=== PATIENT | male | born 1975 | race Two or more races ===

== ENCOUNTER 2021-11-04 18:00 | Inpatient (IN) | payer OTHER, SELFPAY ==
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
[2021-11-04 20:25] LABS: Glucose, Whole Blood 314 mg/dL (60-115)
[2021-11-04] MEDS: Insulin Lispro 100 UNIT/ML 3 ML VIAL SUBCUT (20:37)
[2021-11-04 20:40] VITALS: BP 123/85; PULSE 75; RESP 18; TEMP 36.3; O2SAT 96
[2021-11-04] MEDS: cloNIDine HCL 0.1 MG TABLET PO (21:51)
[2021-11-04] MEDS: Gabapentin 100 MG CAPSULE 200 MG PO (21:51)
[2021-11-04] MEDS: Gabapentin 300 MG CAPSULE PO (21:51)
[2021-11-04] MEDS: hydrOXYzine HCL 25 MG TABLET PO (21:52)
[2021-11-05 08:00] VITALS: BP 146/86; PULSE 86; RESP 20; TEMP 36.6; O2SAT 98
[2021-11-05] MEDS: OLANZapine 5 MG TABLET PO ×2 (08:24→15:15)
[2021-11-05] MEDS: metFORMIN HCl 500 MG TABLET PO (08:24)
[2021-11-05] MEDS: methADONE HCl 20 MG/2 ML ORAL.CONC PO ×2 (08:24→11:36)
[2021-11-05] MEDS: cloNIDine HCL 0.1 MG TABLET PO (08:24)
[2021-11-05] MEDS: Acetaminophen 325 MG TABLET 650 MG PO (08:25)
[2021-11-05] MEDS: Gabapentin 300 MG CAPSULE PO ×2 (08:25→21:13)
[2021-11-05] MEDS: Magnesium Hydrox/Alum Hydrox 30 ML ORAL.SUSP PO (08:25)
[2021-11-05 08:29] LABS: Hemoglobin A1c % > 14.0 %
[2021-11-05 08:35] LABS: Estimated Glomerular Filt Rate > 60
[2021-11-05 08:38] LABS: Cholesterol 140 mg/dL; HDL Cholesterol 39 mg/dL; LDL Cholesterol Calculated 69 mg/dl; Magnesium 2.1 mg/dL (1.6-2.6); Triglycerides 160 mg/dL
[2021-11-05 08:59] LABS: Free T4 (Free Thyroxine) 1.13 ng/dL (0.71-1.85); Thyroid Stimulating Hormone 1.02 uIU/mL (0.32-4.0)
[2021-11-05 08:59] LABS: Glucose, Whole Blood 359 mg/dL (60-115)
[2021-11-05] MEDS: Insulin Lispro 100 UNIT/ML 3 ML VIAL SUBCUT ×4 (09:00→21:16)
--- NOTE | 2021-11-05 10:45 | HO.ADDICT_ITS ---
History of Present Illness Date of Service: 11/05/2021 Chief Complaint: PTSD, Alcohol use d/o, PDD recurrent episode Reason for Consult: methadone titration Requesting physician: Erendira Frausto Sources of Information: patient interviewed and chart reviewed Additional Sources of Information: KEELY HPI Narrative: Patient is a 46 year old male with OUD currently psychiatrically admitted with SI. Patient transferred from [facility] ED where he had been started on methadone 20mg daily, Patient seen in group room on M3. Awake, alert, engaged in interview. Observed yawning, shivering. Reporting anxiety, body aches, chills. States he has been recieving 20mg methadone daily since in the ED at [facility] Current use reported to be at least one bundle daily. Has been using for over ten years on and off, but recently started using IV History of suboxone treatment, which he states was not effective for him for various reasons Denies any history of methadone treatment Reports longest period in recovery 6 years Numerous ATS admissions Denies any history of OD Recieved methadone 20mg this morning (prior to interview) and still experiencing withdrawal sx Review of Systems Constitutional: Reports as per HPI Diagnostics Vital Signs (24Hr): Vital Signs - 24 hr 11/04/21 20:40 Temperature 97.4 F Pulse Rate 75 Respiratory Rate 18 Blood Pressure 123/85 Pulse Oximetry 96 Labs Results: 11/05/21 07:58 Labs: Laboratory Results - last 48 hr 11/04/21 11/05/21 11/05/21 20:22 07:58 07:58 Creatinine Estim Creat Clear Calc Estimated GFR POC Glucose 314 H Estimat Average Glucose TNP Hemoglobin A1c % > 14.0 Magnesium 2.1 Triglycerides 160 Cholesterol 140 LDL Cholesterol, Calc 69 HDL Cholesterol 39 TSH 1.02 Free T4 1.13 11/05/21 11/05/21 07:58 08:55 Creatinine 1.01 Estim Creat Clear Calc TNP Estimated GFR > 60 POC Glucose 359 H* Estimat Average Glucose Hemoglobin A1c % Magnesium Triglycerides Cholesterol LDL Cholesterol, Calc HDL Cholesterol TSH Free T4 Mental Status Exam Mental Status Exam Patient Appearance: Appropriate (wrapped in blanket ) Patient Orientation: Person, Place, Time and Situation Level of Consciousness: Awake, Appropriate and Alert Mood Description: Anxious and Sad Affect Description: Anxious Speech Pattern: Clear Medications Medications Current Medications Acetaminophen (Acetaminophen 325 Mg Tablet) 650 mg PO Q6H PRN PRN Reason: Headache/Pain Mild Scale (1-3) Last Admin: 11/05/21 08:25 Dose: 650 mg Documented by: Al Hydroxide/Mg Hydroxide (Magnesium Hydrox/Alum Hydrox 30 Ml Oral.Susp) 30 ml PO Q6H PRN PRN Reason: Heartburn/Nausea Last Admin: 11/05/21 08:25 Dose: 30 ml Documented by: Clonidine HCl (Clonidine Hcl 0.1 Mg Tablet) 0.1 mg PO TID PRN; Protocol PRN Reason: hyperarousal Last Admin: 11/05/21 08:24 Dose: 0.1 mg Documented by: Gabapentin (Gabapentin 300 Mg Capsule) 300 mg PO BID [facility] Last Admin: 11/05/21 08:25 Dose: 300 mg Documented by: Hydroxyzine HCl (Hydroxyzine Hcl 25 Mg Tablet) 25 mg PO Q6H PRN PRN Reason: Anxiety Last Admin: 11/04/21 21:52 Dose: 25 mg Documented by: Insulin Human Lispro (Insulin Lispro 100 Unit/Ml 3 Ml Vial) 0 unit SUBCUT QIDACHS [facility]; Protocol Last Admin: 11/05/21 09:00 Dose: 10 unit Documented by: Loperamide HCl (Loperamide Hcl 2 Mg Capsule) 2 mg PO Q6H PRN PRN Reason: Diarrhea Magnesium Hydroxide (Milk Of Magnesia 30 Ml Oral.Susp) 30 ml PO DAILY PRN PRN Reason: Constipation Metformin HCl (Metformin Hcl 500 Mg Tablet) 500 mg PO BIDWM [facility] Last Admin: 11/05/21 08:24 Dose: 500 mg Documented by: Olanzapine (Olanzapine 5 Mg Tablet) 5 mg PO TID PRN PRN Reason: agitation, anxiety Last Admin: 11/05/21 08:24 Dose: 5 mg Documented by: Trazodone HCl (Trazodone Hcl 50 Mg Tablet) 50 mg PO BEDTIME PRN PRN Reason: Insomnia Allergies Allergies Allergy/AdvReac Type Severity Reaction Status Date / Time No Known Allergies Allergy Verified 10/04/21 12:40 Assessment & Plan Assessment & Plan (1) Opioid withdrawal: Status: Acute Code(s): F11.23 - Opioid dependence with withdrawal Assessment and Plan: * additional 20mg methadone ordered for total of 40mg today * tomorrow 40mg in AM and assess for need to need to further titrate * avoid benzodiazepines if possible * monitor for oversedation * Recovery Support will collaborate with to ensure admission to OTP prior to DC * If not already ordered HIV, Hepatitis screen (2) Opioid use disorder, severe, dependence: Status: Acute Code(s): F11.20 - Opioid dependence, uncomplicated I spent __45____ minutes with the patient and/or on the patient floor today, greater than?50% of which was spent counseling/coordinating care. [facility] Family History Family History (Updated 10/04/21 @ 12:38 by Isabelle Merino) Mother Diabetes Father HTN (hypertension) Social History Social History (Updated 10/04/21 @ 12:40 by Isabelle Merino) Household Members: None Housing: Apartment Do you presently have visiting nurse or other home services: No Alcohol intake: never Patient Tobacco Use Status: Former Tobacco user Tobacco use type: Cigarette e-Cigarette/Vaping Use: Never Used Patient Interested in Nicotine Replacement: No Use of substances other than those prescribed or required for medical reasons: Yes Substance Use Type: Crack/Cocaine and Heroin Substance Use Frequency: Daily Last Used Substance: Just Prior to Admission Currently Displaying Signs/Symptoms of Drug Intoxication Withdrawal: No Any prior treatment program specific to substance use: Yes ([facility]) Have you been hit, kicked, punched, or otherwise hurt by someone within the past year? If so, by whom?: No Do you feel safe in your current relationship?: No Is there a partner from a previous relationship who is making you feel unsafe now?: No Are you made to feel afraid or neglected: No Advance Directives: No Advance Directives Information Provided: No Do you have thoughts of harming others: None Do you have a plan to hurt others: No Plan Recently lost weight without trying: Yes How much weight loss: Unsure Eating poorly because of decreased appetite: Yes Nutrition screen score: 5 Poor oral hygiene: No
[2021-11-05 12:33] LABS: Glucose, Whole Blood 321 mg/dL (60-115)
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
[2021-11-05] MEDS: hydrOXYzine HCL 25 MG TABLET PO (15:15)
--- NOTE | 2021-11-05 16:25 | P.CNHOSGPS_ITS ---
History of Present Illness Data of Consult Service Date: 11/05/21 Requesting physician: [facility] Psychiatry Primary Care Provider: [facility] HPI Reason for consult: transfer from [facility] 46yo M with uncontrolled DM2 on MTF alone, not on insulin; HTN; bipolar disorder; opioid use disorder; cocaine abuse. Admitted to inpatient psychiatry from [facility] with SI + polysubstance abuse. Started on methadone. A1c is >14 and BGs here are in the 300s. Pt c/o bilateral leg neuropathic pain. Not vaccinated against Covid-19 and had Covid-19 once not requiring hospitalization. No fever, chills, cough, dyspnea, chest pain, nausea, vomiting, or abdominal pain. Review of Systems Review of Systems: Yes all other systems are reviewed and are negative [facility] Medical History Essential hypertension Type 2 diabetes, uncontrolled, with neuropathy Family History Mother Diabetes Father HTN (hypertension) Surgical History History of tooth extraction Social History Household Members: None Housing: Apartment Do you presently have visiting nurse or other home services: No Alcohol intake: never Patient Tobacco Use Status: Former Tobacco user Tobacco use type: Cigarette e-Cigarette/Vaping Use: Never Used Patient Interested in Nicotine Replacement: No Use of substances other than those prescribed or required for medical reasons: Yes Substance Use Type: Crack/Cocaine and Heroin Substance Use Frequency: Daily Last Used Substance: Just Prior to Admission Currently Displaying Signs/Symptoms of Drug Intoxication Withdrawal: No Any prior treatment program specific to substance use: Yes ([facility]) Have you been hit, kicked, punched, or otherwise hurt by someone within the past year? If so, by whom?: No Do you feel safe in your current relationship?: No Is there a partner from a previous relationship who is making you feel unsafe now?: No Are you made to feel afraid or neglected: No Advance Directives: No Advance Directives Information Provided: No Do you have thoughts of harming others: None Do you have a plan to hurt others: No Plan Recently lost weight without trying: Yes How much weight loss: Unsure Eating poorly because of decreased appetite: Yes Nutrition screen score: 5 Poor oral hygiene: No Meds Allergies Allergy/AdvReac Type Severity Reaction Status Date / Time No Known Allergies Allergy Verified 10/04/21 12:40 Active Medications: Current Medications Acetaminophen (Acetaminophen 325 Mg Tablet) 650 mg PO Q6H PRN PRN Reason: Headache/Pain Mild Scale (1-3) Last Admin: 11/05/21 08:25 Dose: 650 mg Documented by: Al Hydroxide/Mg Hydroxide (Magnesium Hydrox/Alum Hydrox 30 Ml Oral.Susp) 30 ml PO Q6H PRN PRN Reason: Heartburn/Nausea Last Admin: 11/05/21 08:25 Dose: 30 ml Documented by: Clonidine HCl (Clonidine Hcl 0.1 Mg Tablet) 0.1 mg PO TID PRN; Protocol PRN Reason: hyperarousal Last Admin: 11/05/21 08:24 Dose: 0.1 mg Documented by: Gabapentin (Gabapentin 300 Mg Capsule) 300 mg PO BID [facility] Last Admin: 11/05/21 08:25 Dose: 300 mg Documented by: Hydroxyzine HCl (Hydroxyzine Hcl 25 Mg Tablet) 25 mg PO Q6H PRN PRN Reason: Anxiety Last Admin: 11/05/21 15:15 Dose: 25 mg Documented by: Insulin Glargine (Insulin Glargine,Hum.Rec.Anlog 100 Unit/Ml 10 Ml Vial) 20 unit SUBCUT BEDTIME [facility] Insulin Human Lispro (Insulin Lispro 100 Unit/Ml 3 Ml Vial) 0 unit SUBCUT [facility]; Protocol Last Admin: 11/05/21 13:05 Dose: 8 unit Documented by: Loperamide HCl (Loperamide Hcl 2 Mg Capsule) 2 mg PO Q6H PRN PRN Reason: Diarrhea Magnesium Hydroxide (Milk Of Magnesia 30 Ml Oral.Susp) 30 ml PO DAILY PRN PRN Reason: Constipation Metformin HCl (Metformin Hcl 1,000 Mg Tablet) 1,000 mg PO BIDWM [facility] Methadone HCl (Methadone Hcl 20 Mg/2 Ml Oral.Conc) 40 mg PO DAILY [facility] Olanzapine (Olanzapine 5 Mg Tablet) 5 mg PO TID PRN PRN Reason: agitation, anxiety Last Admin: 11/05/21 15:15 Dose: 5 mg Documented by: Olanzapine (Olanzapine 10 Mg Tablet) 10 mg PO BEDTIME [facility] Trazodone HCl (Trazodone Hcl 50 Mg Tablet) 50 mg PO BEDTIME PRN PRN Reason: Insomnia Home Medications Medication Instructions Recorded Confirmed Last Taken Type gabapentin 300 mg capsule 1 cap PO BID 11/05/21 Unknown History lisinopril 10 mg tablet 1 tab PO DAILY 11/05/21 Unknown History metformin 500 mg tablet,extended 1 tab PO BID 11/05/21 Unknown History release 24 hr paroxetine HCl 10 mg tablet 3 tab PO QAM 11/05/21 Unknown History Results Labs CBC and Chem 7: 11/05/21 07:58 Labs: Laboratory Results - last 24 hr 11/04/21 11/05/21 11/05/21 20:22 07:58 07:58 Estim Creat Clear Calc Estimated GFR POC Glucose 314 H Estimat Average Glucose TNP Hemoglobin A1c % > 14.0 Magnesium 2.1 Triglycerides 160 Cholesterol 140 LDL Cholesterol, Calc 69 HDL Cholesterol 39 TSH 1.02 Free T4 1.13 11/05/21 11/05/21 11/05/21 07:58 08:55 12:25 Estim Creat Clear Calc TNP Estimated GFR > 60 POC Glucose 359 H* 321 H Estimat Average Glucose Hemoglobin A1c % Magnesium Triglycerides Cholesterol LDL Cholesterol, Calc HDL Cholesterol TSH Free T4 Assessment and Plan (1) Type 2 diabetes, uncontrolled, with neuropathy: Status: Acute (2) Essential hypertension: Status: Acute Plan 46yo M with uncontrolled DM2 on MTF alone, not on insulin; HTN; bipolar disorder; opioid use disorder; cocaine abuse who has been admitted to inpatient psychiatry from [facility] with SI + polysubstance abuse. # uncontrolled DM2 - increase MTF from 500 to 1000 mg bid. start Lantus 20 units qhs; may increase by 10-20% daily to achieve fasting [AM] glucose of 80-140. Continue correction- dose lispro. Suspect highly insulin resistant and should be discharged on least Lantus and needs close PCP f/u. # HTN - pt states on med but not known. will order med reconciliation. currently BP 123/85. if BP >130/80, would start lisinopril 10 mg daily and recheck BMP in 1 week. # opioid use disorder - started on methadone, prn clonidine # bipolar disorder - started on olanzapine + gabapentin, prn hydroxyzine # cocaine abuse - counseling Thank you for this consultation. We are signing off the case at this time. Please communicate with us if any new medical questions arise. Physical Exam Vital Signs: Last Vital Signs Temp 97.4 F 11/04/21 20:40 Pulse 75 11/04/21 20:40 Resp 18 11/04/21 20:40 BP 123/85 11/04/21 20:40 Pulse Ox 96 11/04/21 20:40 Gen: in no acute distress HEENT: sclera anicteric, moist mucus membranes Neck: supple Lungs: clear to auscultation bilaterally Heart: regular rate and rhythm, no murmurs, obese Abd: soft, non-tender, non-distended, obese Ext: no edema Skin: warm/well-perfused Neuro: alert and oriented x3, decreased sensation to light touch bilateral feet Psych: restricted affect Neuro Cranial nerves: Yes CN's II-XII intact bilaterally
[2021-11-05 17:25] LABS: Glucose, Whole Blood 269 mg/dL (60-115)
[2021-11-05 20:50] VITALS: BP 115/60; PULSE 18; RESP 18; TEMP 36.6; O2SAT 95
[2021-11-05] MEDS: OLANZapine 10 MG TABLET PO (21:13)
[2021-11-05] MEDS: LORazepam 1 MG TABLET 2 MG PO (21:13)
[2021-11-05] MEDS: Insulin Glargine,Hum.rec.anlog 100 UNIT/ML 10 ML VIAL 20 UNIT SUBCUT (21:16)
[2021-11-06 00:31] LABS: Glucose, Whole Blood 357 mg/dL (60-115)
[2021-11-06 03:35] VITALS: BP 116/70; PULSE 63
[2021-11-06] MEDS: cloNIDine HCL 0.1 MG TABLET PO ×2 (03:36→13:22)
[2021-11-06] MEDS: hydrOXYzine HCL 25 MG TABLET PO ×2 (03:36→20:50)
[2021-11-06] MEDS: OLANZapine 5 MG TABLET PO (03:44)
[2021-11-06] MEDS: methADONE HCl 20 MG/2 ML ORAL.CONC 40 MG PO (08:16)
[2021-11-06] MEDS: Gabapentin 300 MG CAPSULE PO ×2 (08:18→20:50)
[2021-11-06] MEDS: lisinopriL 10 MG TABLET PO (08:18)
[2021-11-06 09:54] LABS: Glucose, Whole Blood 579 mg/dL (60-115)
[2021-11-06] MEDS: Insulin Lispro 100 UNIT/ML 3 ML VIAL SUBCUT ×2 (09:54→12:54)
--- NOTE | 2021-11-06 12:11 | P.PNPSI_ITS ---
Subjective Subjective Date of Service: 11/06/21 Reason For Visit: PTSD, Alcohol use d/o, PDD recurrent episode Subjective Notes: Conditional Voluntary Interim History: The nursing staff reported the patient was placed on cows and CIWA protocol over the night since his blood pressure and pulse was very high. Today he reported he is doing much better. On interview, the patient stated that he slept a little better, according to the nursing staff he slept 5 hours and he feels a little better but still he complains of anxiety. He stated that in the past he used to be on Ativan and Valium at the same time and I explained him that both medications are benzodiaze pines there highly addictive. He stated that olanzapine that was started yesterday help him a little he agreed to increased a little more so he can sleep a few hours more. Risk benefits and side effects were thoroughly discussed and he agreed increase Zyprexa up to 50 mg p.o. q.h.s. to target mood lability Mental Status Exam Mental Status Exam Patient Appearance: Appropriate Patient Orientation: Person Level of Consciousness: Awake Patient Behavior: Cooperative Mood Description: Withdrawn Affect Description: Constricted Patient Cognition Impaired: No Ability to Follow Directions: Good Speech Pattern: Clear Hallucinations: None Delusions: Not Present Thought Process: Distracted Thought Content: positive for Circumstantial Judgement: Fair Diagnostics Vital Signs (24Hr): Vital Signs - 24 hr 11/05/21 20:50 11/06/21 03:35 Temperature 97.9 F Pulse Rate 18 L 63 Respiratory Rate 18 Blood Pressure 115/60 116/70 Pulse Oximetry 95 Labs Results: 11/05/21 07:58 Labs: Laboratory Results - last 48 hr 11/04/21 11/05/21 11/05/21 20:22 07:58 07:58 Creatinine Estim Creat Clear Calc Estimated GFR POC Glucose 314 H Estimat Average Glucose TNP Hemoglobin A1c % > 14.0 Magnesium 2.1 Triglycerides 160 Cholesterol 140 LDL Cholesterol, Calc 69 HDL Cholesterol 39 TSH 1.02 Free T4 1.13 11/05/21 11/05/21 11/05/21 07:58 08:55 12:25 Creatinine 1.01 Estim Creat Clear Calc TNP Estimated GFR > 60 POC Glucose 359 H* 321 H Estimat Average Glucose Hemoglobin A1c % Magnesium Triglycerides Cholesterol LDL Cholesterol, Calc HDL Cholesterol TSH Free T4 11/05/21 11/05/2111/06/22 17:20 20:39 09:45 Creatinine Estim Creat Clear Calc Estimated GFR POC Glucose 269 H 357 H* 579 H* Estimat Average Glucose Hemoglobin A1c % Magnesium Triglycerides Cholesterol LDL Cholesterol, Calc HDL Cholesterol TSH Free T4 Medications Medications Current Medications Acetaminophen (Acetaminophen 325 Mg Tablet) 650 mg PO Q6H PRN PRN Reason: Headache/Pain Mild Scale (1-3) Last Admin: 11/05/21 08:25 Dose: 650 mg Documented by: Al Hydroxide/Mg Hydroxide (Magnesium Hydrox/Alum Hydrox 30 Ml Oral.Susp) 30 ml PO Q6H PRN PRN Reason: Heartburn/Nausea Last Admin: 11/05/21 08:25 Dose: 30 ml Documented by: Clonidine HCl (Clonidine Hcl 0.1 Mg Tablet) 0.1 mg PO TID PRN; Protocol PRN Reason: hyperarousal Last Admin: 11/06/21 03:36 Dose: 0.1 mg Documented by: Gabapentin (Gabapentin 300 Mg Capsule) 300 mg PO BID [facility] Last Admin: 11/06/21 08:18 Dose: 300 mg Documented by: Hydroxyzine HCl (Hydroxyzine Hcl 25 Mg Tablet) 25 mg PO Q6H PRN PRN Reason: Anxiety Last Admin: 11/06/21 03:36 Dose: 25 mg Documented by: Insulin Glargine (Insulin Glargine,Hum.Rec.Anlog 100 Unit/Ml 10 Ml Vial) 20 unit SUBCUT BEDTIME [facility] Last Admin: 11/05/21 21:16 Dose: 20 unit Documented by: Insulin Human Lispro (Insulin Lispro 100 Unit/Ml 3 Ml Vial) 0 unit SUBCUT QIDACHS [facility]; Protocol Last Admin: 11/06/21 09:54 Dose: 6 unit Documented by: Lisinopril (Lisinopril 10 Mg Tablet) 10 mg PO DAILY [facility]; Protocol Last Admin: 11/06/21 08:18 Dose: 10 mg Documented by: Loperamide HCl (Loperamide Hcl 2 Mg Capsule) 2 mg PO Q6H PRN PRN Reason: Diarrhea Lorazepam (Lorazepam 1 Mg Tablet) 1 mg PO Q2H PRN PRN Reason: CIWA score up to 10 Lorazepam (Lorazepam 1 Mg Tablet) 2 mg PO Q4H PRN PRN Reason: CIWA >10 Last Admin: 11/05/21 21:13 Dose: 2 mg Documented by: Magnesium Hydroxide (Milk Of Magnesia 30 Ml Oral.Susp) 30 ml PO DAILY PRN PRN Reason: Constipation Metformin HCl (Metformin Hcl 1,000 Mg Tablet) 1,000 mg PO BIDWM [facility] Last Admin: 11/06/21 10:01 Dose: Not Given Documented by: Methadone HCl (Methadone Hcl 20 Mg/2 Ml Oral.Conc) 40 mg PO DAILY [facility] Last Admin: 11/06/21 08:16 Dose: 40 mg Documented by: Olanzapine (Olanzapine 5 Mg Tablet) 5 mg PO TID PRN PRN Reason: agitation, anxiety Last Admin: 11/06/21 03:44 Dose: 5 mg Documented by: Olanzapine (Olanzapine 10 Mg Tablet) 10 mg PO BEDTIME [facility] Last Admin: 11/05/21 21:13 Dose: 10 mg Documented by: Trazodone HCl (Trazodone Hcl 50 Mg Tablet) 50 mg PO BEDTIME PRN PRN Reason: Insomnia Allergies Allergies Allergy/AdvReac Type Severity Reaction Status Date / Time No Known Allergies Allergy Verified 10/04/21 12:40 Assessment & Plan Assessment & Plan (1) Type 2 diabetes, uncontrolled, with neuropathy: Status: Acute Code(s): E11.40 - Type 2 diabetes mellitus with diabetic neuropathy, unspecified; E11.65 - Type 2 diabetes mellitus with hyperglycemia (2) Essential hypertension: Status: Acute Code(s): I10 - Essential (primary) hypertension Plan 46yo M with uncontrolled DM2 on MTF alone, not on insulin; HTN; bipolar disorder; opioid use disorder; cocaine abuse who has been admitted to inpatient psychiatry from [facility] with SI + polysubstance abuse. # uncontrolled DM2 - increase MTF from 500 to 1000 mg bid. start Lantus 20 units qhs; may increase by 10-20% daily to achieve fasting [AM] glucose of 80-140. Continue correction- dose lispro. Suspect highly insulin resistant and should be discharged on least Lantus and needs close PCP f/u. # HTN - pt states on med but not known. will order med reconciliation. currently BP 123/85. if BP >130/80, would start lisinopril 10 mg daily and recheck BMP in 1 week. # opioid use disorder - started on methadone, prn clonidine # bipolar disorder - started on olanzapine + gabapentin, prn hydroxyzine # cocaine abuse - counseling Plan 1. Increase Zyprexa up to 50 mg p.o. q.h.s.. 2. Continue cows and CIWA protocol. 3. Reassessment with resulting 24 hours. 4. Gather collateral information. I spent ___20___ minutes with the patient and/or on the patient floor today, greater than?50% of which was spent counseling/coordinating care. Reason for contiued inpatient stay Substantial Risk for: inability to function, rapid decompensation and med/psych decompensation
[2021-11-06 12:53] LABS: Glucose, Whole Blood 398 mg/dL (60-115)
[2021-11-06] MEDS: LORazepam 1 MG TABLET 2 MG PO ×2 (13:22→20:49)
[2021-11-06 17:45] LABS: Glucose, Whole Blood 456 mg/dL (60-115)
--- NOTE | 2021-11-06 17:50 | MHC.RECOVSUP ---
Recovery Support note: This health underwriter met with patient to discuss withdrawal management. Patient reports that the methadone has been very helpful however reports he still continues to experience withdrawal symptoms. Patient reports it feels like my bones are on fire. Patient also states I'm just used to it. Patient reports he was recently incarcerated for a long period of time and that he is trying to figure out who he is outside of an institution. Discussed recovery coaching with patient and he is agreeable to meeting with a head coach. This health underwriter introduced patient to head coach Perez who continued to discuss recovery and recover supports with patient. Discussed case with Isabelle Bonilla NP.
[2021-11-06] MEDS: Insulin Lispro 100 UNIT/ML 3 ML VIAL 24 UNIT SUBCUT (18:20)
[2021-11-06 18:36] LABS: VBG pH 7.34 (7.32-7.43)
[2021-11-06 18:37] LABS: VBG Base Excess 5.4 mmol/L; VBG HCO3 33 mmol/L (22-26); VBG pCO2 61 mmHg; VBG pO2 29 mmHg
[2021-11-06 18:46] LABS: Anion Gap 14 (12-20); Blood Urea Nitrogen 13 mg/dL (9-16); Calcium 10.2 mg/dL (8.4-10.2); Carbon Dioxide 29 mmol/L (22-29); Chloride 96 mmol/L (96-108); Estimated Glomerular Filt Rate 56; Glucose Random 504 mg/dL (60-115); Potassium 5.1 mmol/L (3.3-5.1); Sodium 134 mmol/L (135-145)
[2021-11-06 20:23] LABS: Glucose, Whole Blood 481 mg/dL (60-115)
[2021-11-06 20:26] VITALS: BP 137/69; PULSE 91; RESP 18; TEMP 36.6; O2SAT 98
[2021-11-06] MEDS: Acetaminophen 325 MG TABLET 650 MG PO (20:49)
[2021-11-06] MEDS: Insulin Glargine,Hum.rec.anlog 100 UNIT/ML 10 ML VIAL 30 UNIT SUBCUT (20:51)
[2021-11-06 22:05] LABS: Glucose, Whole Blood 565 mg/dL (60-115)
[2021-11-06] MEDS: Insulin Lispro 100 UNIT/ML 3 ML VIAL 10 UNIT SUBCUT (22:46)
[2021-11-06 23:10] LABS: Venous Blood Gas Refer to POC result
[2021-11-06 23:11] LABS: Acetone, serum QL Negative (Negative)
[2021-11-07 00:27] LABS: Glucose, Whole Blood 416 mg/dL (60-115)
[2021-11-07] MEDS: Insulin Lispro 100 UNIT/ML 3 ML VIAL SUBCUT ×5 (01:13→21:41)
[2021-11-07 03:36] LABS: Glucose, Whole Blood 439 mg/dL (60-115)
--- NOTE | 2021-11-07 05:45 | PM.EVENT ---
Event Note Date of Service: 11/07/21 Event Note: hyperglycemia: Patient did report that in the last hour he ate 2 sandwiches, 8 packets of saltine crackers, and 12 ounces of juice around 21:00. patient labs did not show evidence of dka. patient given lispro subcutaneously will continue to monitor fingerstick glucose patient was on regular diet -changed to carb controlled diet continue lantus 30 units and insulin sliding scale.
[2021-11-07 06:00] VITALS: BP 132/74; PULSE 66; RESP 18; TEMP 36.6; O2SAT 97
[2021-11-07 08:18] LABS: Folate 12.3 ng/mL (> or = 4.0); Vitamin B12 417 pg/mL (200-900)
[2021-11-07] MEDS: LORazepam 1 MG TABLET 2 MG PO (08:21)
[2021-11-07] MEDS: lisinopriL 10 MG TABLET PO (08:22)
[2021-11-07] MEDS: Gabapentin 300 MG CAPSULE PO ×2 (08:22→14:54)
[2021-11-07] MEDS: metFORMIN HCl 1,000 MG TABLET 1000 MG PO (08:23)
[2021-11-07 08:29] LABS: Glucose, Whole Blood 455 mg/dL (60-115)
[2021-11-07 08:33] VITALS: BP 180/80; PULSE 70; RESP 18; TEMP 36.6; O2SAT 96
[2021-11-07] MEDS: methADONE HCl 20 MG/2 ML ORAL.CONC 40 MG PO (08:53)
[2021-11-07 10:32] VITALS: BP 136/75; PULSE 92; RESP 17
--- NOTE | 2021-11-07 11:14 | MHC.RECOVRN ---
Met with pt to follow up regarding methadone titration. Upon approach, pt in milieu talking with peers. Brought to sensory room to have discussion. Pt reports feeling better as dose has been increased however, still has upset stomach, body aches, and is visibly restless. Pt advocating for self to increase dose but not too much. Pt states I've never been on methadone so I don't know how to feel but I don't want a really high dose. Discussed goals of treatment regarding [facility]. Pt unsure which [facility] he would like linkage to. T/w will provide list of options. 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 Discussed with Isabelle Bonilla APRN. Will continue to follow.
--- NOTE | 2021-11-07 12:29 | P.PNPSI_ITS ---
Subjective Subjective Date of Service: 11/07/21 Reason For Visit: PTSD, Alcohol use d/o, PDD recurrent episode Subjective Notes: Conditional Voluntary Interim History: Pt presents as dysphoric with episodes of crying to having slightly brighter affect. Pt reports he is upset after conversation with . He reports wants him to get treatment which he is equating to does not want to be with him. He reports he needs to be with someone in order to get better otherwise he does not think is worth it. Pt reports that tired of his ongoing use of substances and he wants to make changes. He denies plan or intent to hurt himself. He reports fair sleep- nightmares. He appeared somewhat sedated due to ativan he has been getting based on CIWA score but he does not appear in active withdrawal. He denies VH/AH. Interview somewhat limited due to his sedation. Medication Compliance: Yes Side effects from medications: No Review of Systems Review of Systems Yes all other systems are reviewed and are negative Constitutional: Reports as per HPI Diagnostics Vital Signs (24Hr): Vital Signs - 24 hr 11/06/21 20:26 11/07/21 06:00 11/07/21 08:33 Temperature 97.9 F 97.8 F 97.8 F Pulse Rate 91 66 70 Respiratory Rate 18 18 18 Blood Pressure 137/69 132/74 180/80 H Pulse Oximetry 98 97 96 11/07/21 10:32 Temperature Pulse Rate 92 Respiratory Rate 17 Blood Pressure 136/75 Pulse Oximetry Labs Results: 11/06/21 18:22 Labs: Laboratory Results - last 48 hr 11/05/21 11/05/21 11/05/21 07:58 17:20 20:39 VBG pH VBG pCO2 VBG pO2 VBG HCO3 VBG O2 Saturation VBG Base Excess Sodium Potassium Chloride Carbon Dioxide Anion Gap BUN Creatinine Estim Creat Clear Calc Estimated GFR POC Glucose 269 H 357 H* Random Glucose Calcium Vitamin B12 417 Folate 12.3 Acetone, Qual 11/06/21 11/06/21 11/06/21 09:45 12:49 17:40 VBG pH VBG pCO2 VBG pO2 VBG HCO3 VBG O2 Saturation VBG Base Excess Sodium Potassium Chloride Carbon Dioxide Anion Gap BUN Creatinine Estim Creat Clear Calc Estimated GFR POC Glucose 579 H* 398 H* 456 H* Random Glucose Calcium Vitamin B12 Folate Acetone, Qual 11/06/21 11/06/21 11/06/21 18:18 18:22 20:19 VBG pH 7.34 VBG pCO2 61 VBG pO2 29 VBG HCO3 33 H VBG O2 Saturation 39.0 VBG Base Excess 5.4 Sodium 134 L Potassium 5.1 Chloride 96 Carbon Dioxide 29 Anion Gap 14 BUN 13 Creatinine 1.37 Estim Creat Clear Calc TNP Estimated GFR 56 POC Glucose 481 H* Random Glucose 504 H* Calcium 10.2 Vitamin B12 Folate Acetone, Qual Negative 11/06/21 11/07/21 11/07/21 22:00 00:23 03:26 VBG pH VBG pCO2 VBG pO2 VBG HCO3 VBG O2 Saturation VBG Base Excess Sodium Potassium Chloride Carbon Dioxide Anion Gap BUN Creatinine Estim Creat Clear Calc Estimated GFR POC Glucose 565 H* 416 H* 439 H* Random Glucose Calcium Vitamin B12 Folate Acetone, Qual 11/07/21 11/07/21 08:26 13:02 VBG pH VBG pCO2 VBG pO2 VBG HCO3 VBG O2 Saturation VBG Base Excess Sodium Potassium Chloride Carbon Dioxide Anion Gap BUN Creatinine Estim Creat Clear Calc Estimated GFR POC Glucose 455 H* 149 H Random Glucose Calcium Vitamin B12 Folate Acetone, Qual Medications Medications Current Medications Acetaminophen (Acetaminophen 325 Mg Tablet) 650 mg PO Q6H PRN PRN Reason: Headache/Pain Mild Scale (1-3) Last Admin: 11/06/21 20:49 Dose: 650 mg Documented by: Al Hydroxide/Mg Hydroxide (Magnesium Hydrox/Alum Hydrox 30 Ml Oral.Susp) 30 ml PO Q6H PRN PRN Reason: Heartburn/Nausea Last Admin: 11/05/21 08:25 Dose: 30 ml Documented by: Clonidine HCl (Clonidine Hcl 0.1 Mg Tablet) 0.1 mg PO BID [facility]; Protocol Gabapentin (Gabapentin 300 Mg Capsule) 300 mg PO TID [facility] Hydroxyzine HCl (Hydroxyzine Hcl 25 Mg Tablet) 25 mg PO Q6H PRN PRN Reason: Anxiety Last Admin: 11/06/21 20:50 Dose: 25 mg Documented by: Insulin Glargine (Insulin Glargine,Hum.Rec.Anlog 100 Unit/Ml 10 Ml Vial) 45 unit SUBCUT BEDTIME [facility] Insulin Human Lispro (Insulin Lispro 100 Unit/Ml 3 Ml Vial) 0 unit SUBCUT QIDACHS [facility]; Protocol Last Admin: 11/07/21 13:12 Dose: 5 unit Documented by: Lisinopril (Lisinopril 10 Mg Tablet) 10 mg PO DAILY [facility]; Protocol Last Admin: 11/07/21 08:22 Dose: 10 mg Documented by: Loperamide HCl (Loperamide Hcl 2 Mg Capsule) 2 mg PO Q6H PRN PRN Reason: Diarrhea Magnesium Hydroxide (Milk Of Magnesia 30 Ml Oral.Susp) 30 ml PO DAILY PRN PRN Reason: Constipation Metformin HCl (Metformin Hcl 1,000 Mg Tablet) 1,000 mg PO BIDWM [facility] Last Admin: 11/07/21 08:23 Dose: 1,000 mg Documented by: Methadone HCl (Methadone Hcl 20 Mg/2 Ml Oral.Conc) 50 mg PO DAILY [facility] Olanzapine (Olanzapine 7.5 Mg Tablet) 15 mg PO BEDTIME [facility] Last Admin: 11/06/21 20:56 Dose: Not Given Documented by: Olanzapine (Olanzapine 5 Mg Tablet) 5 mg PO Q4H PRN PRN Reason: agitation, anxiety Trazodone HCl (Trazodone Hcl 50 Mg Tablet) 50 mg PO BEDTIME PRN PRN Reason: Insomnia Allergies Allergies Allergy/AdvReac Type Severity Reaction Status Date / Time No Known Allergies Allergy Verified 10/04/21 12:40 Assessment & Plan Assessment & Plan (1) Type 2 diabetes, uncontrolled, with neuropathy: Status: Acute Code(s): E11.40 - Type 2 diabetes mellitus with diabetic neuropathy, unspecified; E11.65 - Type 2 diabetes mellitus with hyperglycemia (2) Essential hypertension: Status: Acute Code(s): I10 - Essential (primary) hypertension (3) Mood disorder: Status: Acute Code(s): F39 - Unspecified mood [affective] disorder (4) Opioid use disorder, severe, dependence: Status: Acute Code(s): F11.20 - Opioid dependence, uncomplicated Plan 46yo M with uncontrolled DM2 on MTF alone, not on insulin; HTN; bipolar disorder; opioid use disorder; cocaine abuse who has been admitted to inpatient psychiatry from [facility] with SI + polysubstance abuse. # uncontrolled DM2 - increase MTF from 500 to 1000 mg bid. start Lantus 20 units qhs; may increase by 10-20% daily to achieve fasting [AM] glucose of 80-140. Continue correction-dose lispro. Suspect highly insulin resistant and should be discharged on least Lantus and needs close PCP f/u. # HTN - pt states on med but not known. will order med reconciliation. currently BP 123/85. if BP >130/80, would start lisinopril 10 mg daily and recheck BMP in 1 week. # opioid use disorder - started on methadone, prn clonidine # bipolar disorder - started on olanzapine + gabapentin, prn hydroxyzine # cocaine abuse - counseling Plan 1. Continue Olanzapine 2. increase gabapentin to 300mg po TID on 11/07 3. Gather collateral information. 4. aftercare planning. I spent minutes with the patient and/or on the patient floor today, greater than?50% of which was spent counseling/coordinating care. Reason for contiued inpatient stay Substantial Risk for: harm to self
[2021-11-07 13:06] LABS: Glucose, Whole Blood 149 mg/dL (60-115)
--- NOTE | 2021-11-07 14:33 | PM.EVENT ---
Event Note Date of Service: 11/07/21 Event Note: Hyperglycemia management BG 455->149 after 30 units lispro given this AM, 30 units glargine last night No evidence of DKA on lab work Will continue glargine 30 units nightly + correction dose lispro tidac 0/2/4/7/10/14/18 units goal AM BG 80-140, 80-200 with meals
--- NOTE | 2021-11-07 16:06 | MHC.CLN ---
NUTRITION A1C GREATER THAN 14 11/05/21. PATIENT DOES NOT FOLLOW THERAPEUTIC DIET AT HOME. DID NOT RECEIVE ALL OF THE FOOD ITEMS ORDERED AT BREAKFAST. EXPLAINED THAT IS ON DIABETIC DIET AND SOME FOODS COLD BE LIMITED.
[2021-11-07 16:37] VITALS: BMI 33.5
[2021-11-07 17:56] LABS: Glucose, Whole Blood 483 mg/dL (60-115)
--- NOTE | 2021-11-07 18:59 | PC.NURSE ---
Patient refused dinner time insulin and metformin due to being upset that his ativan was discontinued. machine scallop cutter, Aaliyah Singh, notified. Patients dinner time POC was 483. Patient was offered zyprexa and atarax, to which he declined. machine scallop cutter offered prn clonidine. Patient refused reporting only benzos will help. Any type of benzo . machine scallop cutter notified of patient statement and request. Patient educated on insulin, elevated levels of POC and metformin. Patient continued to decline sliding scale insulin and metformin despite teaching of its importance.
[2021-11-07 21:28] LABS: Glucose, Whole Blood 586 mg/dL (60-115)
[2021-11-07 21:40] VITALS: BP 116/65; PULSE 99; RESP 20; TEMP 36.8; O2SAT 94
[2021-11-07] MEDS: Insulin Glargine,Hum.rec.anlog 100 UNIT/ML 10 ML VIAL 30 UNIT SUBCUT (21:42)
[2021-11-07] MEDS: chlorproMAZINE HCl 100 MG TABLET PO (21:44)
[2021-11-07] MEDS: Gabapentin 300 MG CAPSULE 600 MG PO (21:44)
[2021-11-07] MEDS: cloNIDine HCL 0.1 MG TABLET PO (21:44)
[2021-11-07] MEDS: OLANZapine 7.5 MG TABLET 15 MG PO (21:45)
--- NOTE | 2021-11-08 08:02 | HO.PSYCHPN ---
Subjective Subjective Date of Service: 11/08/21 Reason For Visit: PTSD, Alcohol use d/o, PDD recurrent episode Subjective Notes: Conditional Voluntary Interim History: Pt reports feeling less depressed, anxious but less than before. he does report sleeping better last night with one time dose of thorazine 100mg po qhs. He is ambivalent about going to [facility] or not. He reports feeling anxious about relationship with who told him he needs help. Medication Compliance: Yes Side effects from medications: No Diagnostics Vital Signs (24Hr): Vital Signs - 24 hr 11/08/21 08:30 11/08/21 21:00 Temperature 97.5 F 98.3 F Pulse Rate 92 95 Respiratory Rate 18 18 Blood Pressure 129/72 108/58 L Pulse Oximetry 96 94 BMI result Body Mass Index 33.5 Labs Results: 11/06/21 18:22 Labs: Laboratory Results - last 48 hr 11/05/21 11/07/21 11/07/21 07:58 08:26 13:02 POC Glucose 455 H* 149 H Vitamin B12 417 Folate 12.3 11/07/21 11/07/21 11/08/21 17:51 21:24 08:12 POC Glucose 483 H* 586 H* 458 H* Vitamin B12 Folate 11/08/21 11/08/21 11/08/21 12:35 13:38 17:18 POC Glucose 515 H* 503 H* 462 H* Vitamin B12 Folate 11/08/21 11/08/21 20:48 23:57 POC Glucose 482 H* 387 H* Vitamin B12 Folate Medications Medications Current Medications Acetaminophen (Acetaminophen 325 Mg Tablet) 650 mg PO Q6H PRN PRN Reason: Headache/Pain Mild Scale (1-3) Last Admin: 11/06/21 20:49 Dose: 650 mg Documented by: Al Hydroxide/Mg Hydroxide (Magnesium Hydrox/Alum Hydrox 30 Ml Oral.Susp) 30 ml PO Q6H PRN PRN Reason: Heartburn/Nausea Last Admin: 11/05/21 08:25 Dose: 30 ml Documented by: Chlorpromazine HCl (Chlorpromazine Hcl 100 Mg Tablet) 100 mg PO Q6H PRN PRN Reason: agitation Last Admin: 11/08/21 18:41 Dose: 100 mg Documented by: Clonidine HCl (Clonidine Hcl 0.1 Mg Tablet) 0.1 mg PO TID [facility]; Protocol Last Admin: 11/08/21 21:00 Dose: 0.1 mg Documented by: Gabapentin (Gabapentin 300 Mg Capsule) 600 mg PO TID [facility] Last Admin: 11/08/21 21:00 Dose: 600 mg Documented by: Hydroxyzine HCl (Hydroxyzine Hcl 25 Mg Tablet) 25 mg PO Q6H PRN PRN Reason: Anxiety Last Admin: 11/06/21 20:50 Dose: 25 mg Documented by: Insulin Glargine (Insulin Glargine,Hum.Rec.Anlog 100 Unit/Ml 10 Ml Vial) 30 unit SUBCUT BEDTIME [facility] Last Admin: 11/08/21 21:03 Dose: 30 unit Documented by: Insulin Human Lispro (Insulin Lispro 100 Unit/Ml 3 Ml Vial) 0 unit SUBCUT QIDACHS [facility]; Protocol Last Admin: 11/08/21 21:04 Dose: 18 unit Documented by: Lisinopril (Lisinopril 10 Mg Tablet) 10 mg PO DAILY [facility]; Protocol Last Admin: 11/08/21 08:25 Dose: 10 mg Documented by: Loperamide HCl (Loperamide Hcl 2 Mg Capsule) 2 mg PO Q6H PRN PRN Reason: Diarrhea Magnesium Hydroxide (Milk Of Magnesia 30 Ml Oral.Susp) 30 ml PO DAILY PRN PRN Reason: Constipation Metformin HCl (Metformin Hcl 1,000 Mg Tablet) 1,000 mg PO BIDWM [facility] Last Admin: 11/08/21 17:49 Dose: 1,000 mg Documented by: Methadone HCl (Methadone Hcl 20 Mg/2 Ml Oral.Conc) 50 mg PO DAILY [facility] Last Admin: 11/08/21 08:26 Dose: 50 mg Documented by: Olanzapine (Olanzapine 7.5 Mg Tablet) 15 mg PO BEDTIME [facility] Last Admin: 11/08/21 21:00 Dose: 15 mg Documented by: Trazodone HCl (Trazodone Hcl 50 Mg Tablet) 50 mg PO BEDTIME PRN PRN Reason: Insomnia Allergies Allergies Allergy/AdvReac Type Severity Reaction Status Date / Time No Known Allergies Allergy Verified 10/04/21 12:40 Assessment & Plan Assessment & Plan (1) Mood disorder: Status: Acute Code(s): F39 - Unspecified mood [affective] disorder (2) Opioid use disorder, severe, dependence: Status: Acute Code(s): F11.20 - Opioid dependence, uncomplicated Plan continue gabapentin 600mg po TID- monitor for sedation as methadone dose increases continue clonidine, prn thorazine- at this point won't scheduled as pt appears sedated. aftercare planning. I spent minutes with the patient and/or on the patient floor today, greater than?50% of which was spent counseling/coordinating care. Reason for contiued inpatient stay Substantial Risk for: harm to self
[2021-11-08 08:16] LABS: Glucose, Whole Blood 458 mg/dL (60-115)
[2021-11-08] MEDS: Gabapentin 300 MG CAPSULE 600 MG PO ×3 (08:25→21:00)
[2021-11-08] MEDS: metFORMIN HCl 1,000 MG TABLET 1000 MG PO ×2 (08:25→17:49)
[2021-11-08] MEDS: lisinopriL 10 MG TABLET PO (08:25)
[2021-11-08] MEDS: cloNIDine HCL 0.1 MG TABLET PO ×2 (08:25→21:00)
[2021-11-08] MEDS: methADONE HCl 20 MG/2 ML ORAL.CONC 50 MG PO (08:26)
[2021-11-08 08:30] VITALS: BP 129/72; PULSE 92; RESP 18; TEMP 36.4; O2SAT 96
[2021-11-08] MEDS: Insulin Lispro 100 UNIT/ML 3 ML VIAL SUBCUT ×4 (08:53→21:04)
--- NOTE | 2021-11-08 10:13 | HO.ADDICTPRO ---
Subjective Subjective Date of Service: 11/08/21 Reason For Visit: PTSD, Alcohol use d/o, PDD recurrent episode Interim History: Patient methadone dose at 50mg Appearing much more comfortable Denies chills, nausea, and restlessness. Still experiencing some rhinnorhea and anxiet, and body aches Patient expressed frustration with not being able to have benzodiazepines PRN as he found that they were very effective in managing his anxiety. 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 Patient verbalized understanding. Selected [facility], [facility] as preferred OTP once discharged. Review of Systems Constitutional: Reports as per HPI Mental Status Exam Mental Status Exam Patient Appearance: Well Grooomed and Appropriate Patient Orientation: Person, Place, Time and Situation Level of Consciousness: Awake and Appropriate Patient Behavior: Appropriate and Talkative Mood Description: Appropriate Affect Description: Appropriate Patient Cognition Impaired: No Judgement: Fair Diagnostics Vital Signs (24Hr): Vital Signs - 24 hr 11/07/21 10:32 11/07/21 21:40 Temperature 98.3 F Pulse Rate 92 99 Respiratory Rate 17 20 Blood Pressure 136/75 116/65 Pulse Oximetry 94 BMI result Body Mass Index 33.5 Labs Results: 11/06/21 18:22 Labs: Laboratory Results - last 48 hr 11/05/21 11/06/21 11/06/21 07:58 12:49 17:40 VBG pH VBG pCO2 VBG pO2 VBG HCO3 VBG O2 Saturation VBG Base Excess Sodium Potassium Chloride Carbon Dioxide Anion Gap BUN Creatinine Estim Creat Clear Calc Estimated GFR POC Glucose 398 H* 456 H* Random Glucose Calcium Vitamin B12 417 Folate 12.3 Acetone, Qual 11/06/21 11/06/21 11/06/21 18:18 18:22 20:19 VBG pH 7.34 VBG pCO2 61 VBG pO2 29 VBG HCO3 33 H VBG O2 Saturation 39.0 VBG Base Excess 5.4 Sodium 134 L Potassium 5.1 Chloride 96 Carbon Dioxide 29 Anion Gap 14 BUN 13 Creatinine 1.37 Estim Creat Clear Calc TNP Estimated GFR 56 POC Glucose 481 H* Random Glucose 504 H* Calcium 10.2 Vitamin B12 Folate Acetone, Qual Negative 11/06/21 11/07/21 11/07/21 22:00 00:23 03:26 VBG pH VBG pCO2 VBG pO2 VBG HCO3 VBG O2 Saturation VBG Base Excess Sodium Potassium Chloride Carbon Dioxide Anion Gap BUN Creatinine Estim Creat Clear Calc Estimated GFR POC Glucose 565 H* 416 H* 439 H* Random Glucose Calcium Vitamin B12 Folate Acetone, Qual 11/07/21 11/07/21 11/07/21 08:26 13:02 17:51 VBG pH VBG pCO2 VBG pO2 VBG HCO3 VBG O2 Saturation VBG Base Excess Sodium Potassium Chloride Carbon Dioxide Anion Gap BUN Creatinine Estim Creat Clear Calc Estimated GFR POC Glucose 455 H* 149 H 483 H* Random Glucose Calcium Vitamin B12 Folate Acetone, Qual 11/07/21 11/08/21 21:24 08:12 VBG pH VBG pCO2 VBG pO2 VBG HCO3 VBG O2 Saturation VBG Base Excess Sodium Potassium Chloride Carbon Dioxide Anion Gap BUN Creatinine Estim Creat Clear Calc Estimated GFR POC Glucose 586 H* 458 H* Random Glucose Calcium Vitamin B12 Folate Acetone, Qual Medications Medications Current Medications Acetaminophen (Acetaminophen 325 Mg Tablet) 650 mg PO Q6H PRN PRN Reason: Headache/Pain Mild Scale (1-3) Last Admin: 11/06/21 20:49 Dose: 650 mg Documented by: Al Hydroxide/Mg Hydroxide (Magnesium Hydrox/Alum Hydrox 30 Ml Oral.Susp) 30 ml PO Q6H PRN PRN Reason: Heartburn/Nausea Last Admin: 11/05/21 08:25 Dose: 30 ml Documented by: Chlorpromazine HCl (Chlorpromazine Hcl 100 Mg Tablet) 100 mg PO Q6H PRN PRN Reason: agitation Clonidine HCl (Clonidine Hcl 0.1 Mg Tablet) 0.1 mg PO TID [facility]; Protocol Last Admin: 11/08/21 08:25 Dose: 0.1 mg Documented by: Gabapentin (Gabapentin 300 Mg Capsule) 600 mg PO TID [facility] Last Admin: 11/08/21 08:25 Dose: 600 mg Documented by: Hydroxyzine HCl (Hydroxyzine Hcl 25 Mg Tablet) 25 mg PO Q6H PRN PRN Reason: Anxiety Last Admin: 11/06/21 20:50 Dose: 25 mg Documented by: Insulin Glargine (Insulin Glargine,Hum.Rec.Anlog 100 Unit/Ml 10 Ml Vial) 30 unit SUBCUT BEDTIME [facility] Last Admin: 11/07/21 21:42 Dose: 30 unit Documented by: Insulin Human Lispro (Insulin Lispro 100 Unit/Ml 3 Ml Vial) 0 unit SUBCUT QIDACHS [facility]; Protocol Last Admin: 11/08/21 08:53 Dose: 18 unit Documented by: Lisinopril (Lisinopril 10 Mg Tablet) 10 mg PO DAILY [facility]; Protocol Last Admin: 11/08/21 08:25 Dose: 10 mg Documented by: Loperamide HCl (Loperamide Hcl 2 Mg Capsule) 2 mg PO Q6H PRN PRN Reason: Diarrhea Magnesium Hydroxide (Milk Of Magnesia 30 Ml Oral.Susp) 30 ml PO DAILY PRN PRN Reason: Constipation Metformin HCl (Metformin Hcl 1,000 Mg Tablet) 1,000 mg PO BIDWM [facility] Last Admin: 11/08/21 08:25 Dose: 1,000 mg Documented by: Methadone HCl (Methadone Hcl 20 Mg/2 Ml Oral.Conc) 50 mg PO DAILY [facility] Last Admin: 11/08/21 08:26 Dose: 50 mg Documented by: Olanzapine (Olanzapine 7.5 Mg Tablet) 15 mg PO BEDTIME [facility] Last Admin: 11/07/21 21:45 Dose: 15 mg Documented by: Trazodone HCl (Trazodone Hcl 50 Mg Tablet) 50 mg PO BEDTIME PRN PRN Reason: Insomnia Allergies Allergies Allergy/AdvReac Type Severity Reaction Status Date / Time No Known Allergies Allergy Verified 10/04/21 12:40 Assessment & Plan Assessment & Plan (1) Opioid use disorder, severe, dependence: Status: Acute Code(s): F11.20 - Opioid dependence, uncomplicated Plan increase methadone to 55mg tomorrow RSRN to collaborate with SW to refer to OTP I spent __25____ minutes with the patient and/or on the patient floor today, greater than?50% of which was spent counseling/coordinating care.
[2021-11-08 12:39] LABS: Glucose, Whole Blood 515 mg/dL (60-115)
--- NOTE | 2021-11-08 12:41 | PC.NURSE ---
Aaliyah Singh APRN notified of patient's elevated blood sugar of 458 this morning. 18 units of coverage administered.No further intervention at this time.
--- NOTE | 2021-11-08 13:14 | PC.NURSE ---
Patient blood sugar 515. Aaliyah Singh notified, requested hospitalist be contacted. Dr. Ratliff contacted, requested recheck in 1 hour, text with results to Dr. Ratliff.
[2021-11-08 13:42] LABS: Glucose, Whole Blood 503 mg/dL (60-115)
--- NOTE | 2021-11-08 13:56 | PC.NURSE ---
Pt reported having shooting/burning pain in both of his feet. Upon assessment, the soles of his feet are extremely dry and cracked. There are several deep cracks in between his toes and in the middle of his soles. Dr. Ratliff notified, awaiting for recommendations. Provided patient education on diabetic neuropathy and the importance of keeping his blood sugars as controlled as possible, pt verbalized understanding.
--- NOTE | 2021-11-08 14:42 | PC.NURSE ---
Dr. Ratliff and Aaliyah Singh APRN notified of repeat blood sugar of 503. Clonidine held due to sedation following discussion with Aaliyah Singh APRN.
[2021-11-08 17:23] LABS: Glucose, Whole Blood 462 mg/dL (60-115)
[2021-11-08] MEDS: chlorproMAZINE HCl 100 MG TABLET PO (18:41)
[2021-11-08 20:52] LABS: Glucose, Whole Blood 482 mg/dL (60-115)
[2021-11-08 21:00] VITALS: BP 108/58; PULSE 95; RESP 18; TEMP 36.8; O2SAT 94
[2021-11-08] MEDS: OLANZapine 7.5 MG TABLET 15 MG PO (21:00)
[2021-11-08] MEDS: Insulin Glargine,Hum.rec.anlog 100 UNIT/ML 10 ML VIAL 30 UNIT SUBCUT (21:03)
[2021-11-09 00:07] LABS: Glucose, Whole Blood 387 mg/dL (60-115)
[2021-11-09] MEDS: Insulin Lispro 100 UNIT/ML 3 ML VIAL SUBCUT ×5 (00:26→21:03)
--- NOTE | 2021-11-09 00:31 | PC.NURSE ---
Pt blood glucose level was 482 at 2100. on call notified. Requested an additional blood glucose be taken. Blood glucose retaken and it was 387. on call ordered 5 units of lispro insulin to be given. 5 units of lispro given at 0025.
--- NOTE | 2021-11-09 05:42 | PC.NURSE ---
This evening, pt complaining of pain on walking and showed this RN his feet. Feet were extremely, dry and cracked with some small amounts of bleeding, bilaterally.
[2021-11-09 06:00] VITALS: BP 124/60; PULSE 63; RESP 18; TEMP 36.6; O2SAT 97
[2021-11-09 07:50] LABS: HBsAGNum1 0.17 S/CO (0.00-0.99); HIV AB/AG Nonreactive (Nonreactive); HIV Num 1 0.07 S/CO (0.00-0.99); Hepatitis B Surface Antigen Negative (Negative)
[2021-11-09 08:38] LABS: HBS Num1 > 1000.00 mIU/mL (0-7.99); Hepatitis A Antibody IgM 0.22 Index (0-0.79); Hepatitis B Core Antibody Nonreactive (Nonreactive); ~Hepatitis A Antibody IgM Nonreactive (Nonreactive); ~Hepatitis B Surface Antibody REACTIVE (Nonreactive)
[2021-11-09 08:42] LABS: Glucose, Whole Blood 466 mg/dL (60-115)
[2021-11-09] MEDS: Gabapentin 300 MG CAPSULE 600 MG PO (08:49)
[2021-11-09] MEDS: lisinopriL 10 MG TABLET PO (08:49)
[2021-11-09] MEDS: methADONE HCl 20 MG/2 ML ORAL.CONC 50 MG PO (08:50)
[2021-11-09] MEDS: metFORMIN HCl 1,000 MG TABLET 1000 MG PO ×2 (08:50→18:04)
[2021-11-09] MEDS: cloNIDine HCL 0.1 MG TABLET PO ×2 (08:50→21:01)
--- NOTE | 2021-11-09 12:45 | HO.PSYCHPN ---
Subjective Subjective Date of Service: 11/09/21 Reason For Visit: PTSD, Alcohol use d/o, PDD recurrent episode Subjective Notes: Conditional Voluntary Interim History: Pt appears quiet somnolent- which he denies. but clear that is difficult to keep eyes open. He reports less depression, no SI/HI. improved sleep. He has gone to some groups but falling asleep. ambivalent about [facility] referral. Medication Compliance: Yes Side effects from medications: No Review of Systems Review of Systems Yes all other systems are reviewed and are negative Constitutional: Reports as per HPI Mental Status Exam Mental Status Exam Patient Appearance: Well Grooomed and Appropriate Patient Orientation: Person, Place, Time and Situation Level of Consciousness: Awake and Appropriate Patient Behavior: Appropriate and Talkative Mood Description: Appropriate Affect Description: Appropriate Patient Cognition Impaired: No Ability to Follow Directions: Good Speech Pattern: Clear Diagnostics Vital Signs (24Hr): Vital Signs - 24 hr 11/09/21 20:35 Temperature 98.3 F Pulse Rate 90 Respiratory Rate 14 Blood Pressure 132/59 L Pulse Oximetry 95 BMI result Body Mass Index 33.5 Labs Results: 11/06/21 18:22 Labs: Laboratory Results - last 48 hr 11/08/21 11/08/21 11/08/21 13:38 17:18 18:31 POC Glucose 503 H* 462 H* Hepatitis A IgM Ab Nonreactive Hep Bs Antigen Negative Hep Bs Antibody REACTIVE Hep B Core Total Ab Nonreactive Hepatitis C Ab (EIA) Nonreactive HIV 1&2 Ab/P24 Ag 4thGn Nonreactive 11/08/21 11/08/21 11/09/21 20:48 23:57 08:37 POC Glucose 482 H* 387 H* 466 H* Hepatitis A IgM Ab Hep Bs Antigen Hep Bs Antibody Hep B Core Total Ab Hepatitis C Ab (EIA) HIV 1&2 Ab/P24 Ag 4thGn 11/09/21 11/09/21 11/09/21 13:06 17:57 20:52 POC Glucose 295 H 326 H 405 H* Hepatitis A IgM Ab Hep Bs Antigen Hep Bs Antibody Hep B Core Total Ab Hepatitis C Ab (EIA) HIV 1&2 Ab/P24 Ag 4thGn 11/10/21 11/10/21 08:48 12:03 POC Glucose 322 H 322 H Hepatitis A IgM Ab Hep Bs Antigen Hep Bs Antibody Hep B Core Total Ab Hepatitis C Ab (EIA) HIV 1&2 Ab/P24 Ag 4thGn Medications Medications Current Medications Acetaminophen (Acetaminophen 325 Mg Tablet) 650 mg PO Q6H PRN PRN Reason: Headache/Pain Mild Scale (1-3) Last Admin: 11/06/21 20:49 Dose: 650 mg Documented by: Al Hydroxide/Mg Hydroxide (Magnesium Hydrox/Alum Hydrox 30 Ml Oral.Susp) 30 ml PO Q6H PRN PRN Reason: Heartburn/Nausea Last Admin: 11/05/21 08:25 Dose: 30 ml Documented by: Chlorpromazine HCl (Chlorpromazine Hcl 100 Mg Tablet) 100 mg PO Q6H PRN PRN Reason: agitation Last Admin: 11/08/21 18:41 Dose: 100 mg Documented by: Clonidine HCl (Clonidine Hcl 0.1 Mg Tablet) 0.1 mg PO BID [facility]; Protocol Last Admin: 11/10/21 10:08 Dose: Not Given Documented by: Gabapentin (Gabapentin 300 Mg Capsule) 300 mg PO TID [facility] Last Admin: 11/10/21 10:08 Dose: Not Given Documented by: Hydroxyzine HCl (Hydroxyzine Hcl 25 Mg Tablet) 25 mg PO Q6H PRN PRN Reason: Anxiety Last Admin: 11/06/21 20:50 Dose: 25 mg Documented by: Insulin Glargine (Insulin Glargine,Hum.Rec.Anlog 100 Unit/Ml 10 Ml Vial) 30 unit SUBCUT BEDTIME [facility] Last Admin: 11/09/21 21:02 Dose: 30 unit Documented by: Insulin Human Lispro (Insulin Lispro 100 Unit/Ml 3 Ml Vial) 0 unit SUBCUT QIDACHS [facility]; Protocol Last Admin: 11/10/21 12:45 Dose: 14 unit Documented by: Lisinopril (Lisinopril 10 Mg Tablet) 10 mg PO DAILY [facility]; Protocol Last Admin: 11/10/21 08:27 Dose: 10 mg Documented by: Loperamide HCl (Loperamide Hcl 2 Mg Capsule) 2 mg PO Q6H PRN PRN Reason: Diarrhea Magnesium Hydroxide (Milk Of Magnesia 30 Ml Oral.Susp) 30 ml PO DAILY PRN PRN Reason: Constipation Metformin HCl (Metformin Hcl 1,000 Mg Tablet) 1,000 mg PO BIDWM [facility] Last Admin: 11/10/21 08:27 Dose: 1,000 mg Documented by: Methadone HCl (Methadone Hcl 20 Mg/2 Ml Oral.Conc) 55 mg PO DAILY [facility] Last Admin: 11/10/21 08:26 Dose: 55 mg Documented by: Olanzapine (Olanzapine 7.5 Mg Tablet) 15 mg PO BEDTIME [facility] Last Admin: 11/09/21 21:02 Dose: 15 mg Documented by: Trazodone HCl (Trazodone Hcl 50 Mg Tablet) 50 mg PO BEDTIME PRN PRN Reason: Insomnia Allergies Allergies Allergy/AdvReac Type Severity Reaction Status Date / Time No Known Allergies Allergy Verified 10/04/21 12:40 Assessment & Plan Assessment & Plan (1) Mood disorder: Status: Acute Code(s): F39 - Unspecified mood [affective] disorder (2) Opioid use disorder, severe, dependence: Status: Acute Code(s): F11.20 - Opioid dependence, uncomplicated Plan decrease gabapentin 300mg po TID- monitor for sedation as methadone dose increases decrease clonidine to BID, prn thorazine- at this point won't scheduled as pt appears sedated. aftercare planning. I spent minutes with the patient and/or on the patient floor today, greater than?50% of which was spent counseling/coordinating care. Reason for contiued inpatient stay Substantial Risk for: harm to self
[2021-11-09 13:10] LABS: Glucose, Whole Blood 295 mg/dL (60-115)
[2021-11-09] MEDS: Gabapentin 300 MG CAPSULE PO ×2 (15:08→21:02)
[2021-11-09 18:01] LABS: Glucose, Whole Blood 326 mg/dL (60-115)
[2021-11-09 20:35] VITALS: BP 132/59; PULSE 90; RESP 14; TEMP 36.8; O2SAT 95
[2021-11-09 20:56] LABS: Glucose, Whole Blood 405 mg/dL (60-115)
[2021-11-09] MEDS: Insulin Glargine,Hum.rec.anlog 100 UNIT/ML 10 ML VIAL 30 UNIT SUBCUT (21:02)
[2021-11-09] MEDS: OLANZapine 7.5 MG TABLET 15 MG PO (21:02)
[2021-11-10 06:00] VITALS: BP 110/65; PULSE 70; RESP 16; TEMP 36.7; O2SAT 96
[2021-11-10] MEDS: methADONE HCl 20 MG/2 ML ORAL.CONC 55 MG PO (08:26)
[2021-11-10] MEDS: metFORMIN HCl 1,000 MG TABLET 1000 MG PO ×2 (08:27→17:54)
[2021-11-10] MEDS: lisinopriL 10 MG TABLET PO (08:27)
[2021-11-10 08:53] LABS: Glucose, Whole Blood 322 mg/dL (60-115)
[2021-11-10] MEDS: Insulin Lispro 100 UNIT/ML 3 ML VIAL SUBCUT ×4 (08:53→21:35)
[2021-11-10 09:39] LABS: ~HepC Num1 0.14 S/CO (0.00-0.79); ~Hepatitis C Antibody Nonreactive (Nonreactive)
[2021-11-10 12:06] LABS: Glucose, Whole Blood 322 mg/dL (60-115)
--- NOTE | 2021-11-10 13:00 | MHC.RECOVSUP ---
? Reason for consult:recovery Support o Current location:[address] o Identified substance use concern: Polysubstance - - Support ? Intervention: o MAT started or to be started o Community resources provided o Harm reduction discussion ? Plan: o Follow up tomorrow o Patient to follow up with [facility] after discharge ? Additional information:Patient seeking volleyball coach. Referred patient to [facility] to obtain one. Provided pt.with community resources. patient was not being discharged today.
[2021-11-10] MEDS: cloNIDine HCL 0.1 MG TABLET PO (14:20)
[2021-11-10] MEDS: Gabapentin 300 MG CAPSULE PO (14:21)
--- NOTE | 2021-11-10 14:23 | HO.PSYCHPN ---
Subjective Subjective Date of Service: 11/10/21 Reason For Visit: PTSD, Alcohol use d/o, PDD recurrent episode Interim History: Pt more awake today, did hold gabapentin and clonidine in the morning due to sedation. he reports feeling less anxious, less dysphoric,he denies SI/HI. He reports sleep is good. He has been visible in the unit. He reports wanting to go home on Sunday and continuing methadone program. He declines referrals to residential substance use tx programs. No behavioral concerns- Urology consult ordered due to phemosis- Dr. Cornejo aware and will see pt. Medication Compliance: Yes Side effects from medications: No Review of Systems Review of Systems Yes all other systems are reviewed and are negative Constitutional: Reports as per HPI Mental Status Exam Mental Status Exam Patient Appearance: Well Grooomed and Appropriate Patient Orientation: Person, Place, Time and Situation Level of Consciousness: Awake and Appropriate Patient Behavior: Appropriate and Talkative Mood Description: Appropriate Affect Description: Appropriate Patient Cognition Impaired: No Ability to Follow Directions: Good Speech Pattern: Clear Diagnostics Vital Signs (24Hr): Vital Signs - 24 hr 11/09/21 20:35 Temperature 98.3 F Pulse Rate 90 Respiratory Rate 14 Blood Pressure 132/59 L Pulse Oximetry 95 BMI result Body Mass Index 33.7 Labs Results: 11/06/21 18:22 Labs: Laboratory Results - last 48 hr 11/08/21 11/08/21 11/08/21 17:18 18:31 20:48 POC Glucose 462 H* 482 H* Hepatitis A IgM Ab Nonreactive Hep Bs Antigen Negative Hep Bs Antibody REACTIVE Hep B Core Total Ab Nonreactive Hepatitis C Ab (EIA) Nonreactive HIV 1&2 Ab/P24 Ag 4thGn Nonreactive 11/08/21 11/09/21 11/09/21 23:57 08:37 13:06 POC Glucose 387 H* 466 H* 295 H Hepatitis A IgM Ab Hep Bs Antigen Hep Bs Antibody Hep B Core Total Ab Hepatitis C Ab (EIA) HIV 1&2 Ab/P24 Ag 4thGn 11/09/21 11/09/21 11/10/21 17:57 20:52 08:48 POC Glucose 326 H 405 H* 322 H Hepatitis A IgM Ab Hep Bs Antigen Hep Bs Antibody Hep B Core Total Ab Hepatitis C Ab (EIA) HIV 1&2 Ab/P24 Ag 4thGn 11/10/21 12:03 POC Glucose 322 H Hepatitis A IgM Ab Hep Bs Antigen Hep Bs Antibody Hep B Core Total Ab Hepatitis C Ab (EIA) HIV 1&2 Ab/P24 Ag 4thGn Medications Medications Current Medications Acetaminophen (Acetaminophen 325 Mg Tablet) 650 mg PO Q6H PRN PRN Reason: Headache/Pain Mild Scale (1-3) Last Admin: 11/06/21 20:49 Dose: 650 mg Documented by: Al Hydroxide/Mg Hydroxide (Magnesium Hydrox/Alum Hydrox 30 Ml Oral.Susp) 30 ml PO Q6H PRN PRN Reason: Heartburn/Nausea Last Admin: 11/05/21 08:25 Dose: 30 ml Documented by: Chlorpromazine HCl (Chlorpromazine Hcl 100 Mg Tablet) 100 mg PO Q6H PRN PRN Reason: agitation Last Admin: 11/08/21 18:41 Dose: 100 mg Documented by: Clonidine HCl (Clonidine Hcl 0.1 Mg Tablet) 0.1 mg PO BID PRN; Protocol PRN Reason: anxiety Gabapentin (Gabapentin 100 Mg Capsule) 200 mg PO BID@0900,1500 PRN PRN Reason: anxiety/neuropathic pain Gabapentin (Gabapentin 400 Mg Capsule) 400 mg PO BEDTIME [facility] Hydroxyzine HCl (Hydroxyzine Hcl 25 Mg Tablet) 25 mg PO Q6H PRN PRN Reason: Anxiety Last Admin: 11/06/21 20:50 Dose: 25 mg Documented by: Insulin Glargine (Insulin Glargine,Hum.Rec.Anlog 100 Unit/Ml 10 Ml Vial) 30 unit SUBCUT BEDTIME [facility] Last Admin: 11/09/21 21:02 Dose: 30 unit Documented by: Insulin Human Lispro (Insulin Lispro 100 Unit/Ml 3 Ml Vial) 0 unit SUBCUT QIDACHS [facility]; Protocol Last Admin: 11/10/21 12:45 Dose: 14 unit Documented by: Lisinopril (Lisinopril 10 Mg Tablet) 10 mg PO DAILY [facility]; Protocol Last Admin: 11/10/21 08:27 Dose: 10 mg Documented by: Loperamide HCl (Loperamide Hcl 2 Mg Capsule) 2 mg PO Q6H PRN PRN Reason: Diarrhea Magnesium Hydroxide (Milk Of Magnesia 30 Ml Oral.Susp) 30 ml PO DAILY PRN PRN Reason: Constipation Metformin HCl (Metformin Hcl 1,000 Mg Tablet) 1,000 mg PO BIDWM [facility] Last Admin: 11/10/21 08:27 Dose: 1,000 mg Documented by: Methadone HCl (Methadone Hcl 20 Mg/2 Ml Oral.Conc) 55 mg PO DAILY [facility] Last Admin: 11/10/21 08:26 Dose: 55 mg Documented by: Nicotine (Nicotine 21 Mg Patch.Td24) 21 mg TRANSDERMA DAILY [facility] Last Admin: 11/10/21 16:16 Dose: 21 mg Documented by: Olanzapine (Olanzapine 7.5 Mg Tablet) 15 mg PO BEDTIME [facility] Last Admin: 11/09/21 21:02 Dose: 15 mg Documented by: Trazodone HCl (Trazodone Hcl 50 Mg Tablet) 50 mg PO BEDTIME PRN PRN Reason: Insomnia Allergies Allergies Allergy/AdvReac Type Severity Reaction Status Date / Time No Known Allergies Allergy Verified 10/04/21 12:40 Assessment & Plan Assessment & Plan (1) Mood disorder: Status: Acute Code(s): F39 - Unspecified mood [affective] disorder (2) Opioid use disorder, severe, dependence: Status: Acute Code(s): F11.20 - Opioid dependence, uncomplicated Plan decrease gabapentin 400mg po qhs- monitor for sedation as methadone dose increases decrease clonidine to BID, prn thorazine- at this point won't scheduled as pt appears sedated. aftercare planning- referred to methadone clinic, OP psych [place] through [facility], tentative d/c on Tuesday 11/14. I spent minutes with the patient and/or on the patient floor today, greater than?50% of which was spent counseling/coordinating care. Reason for contiued inpatient stay Substantial Risk for: harm to self
[2021-11-10 16:11] VITALS: BMI 33.7
[2021-11-10] MEDS: Nicotine 21 MG PATCH.TD24 TRANSDERMA (16:16)
[2021-11-10 17:38] LABS: Glucose, Whole Blood 317 mg/dL (60-115)
[2021-11-10 20:40] LABS: Glucose, Whole Blood 310 mg/dL (60-115)
[2021-11-10 21:15] VITALS: BP 114/58; PULSE 82; RESP 18; TEMP 37.1; O2SAT 97
[2021-11-10] MEDS: Insulin Glargine,Hum.rec.anlog 100 UNIT/ML 10 ML VIAL 30 UNIT SUBCUT (21:36)
[2021-11-10] MEDS: Gabapentin 400 MG CAPSULE PO (21:37)
[2021-11-10] MEDS: Acetaminophen 325 MG TABLET 650 MG PO (21:37)
[2021-11-10] MEDS: hydrOXYzine HCL 25 MG TABLET PO (21:37)
[2021-11-10] MEDS: OLANZapine 7.5 MG TABLET 15 MG PO (21:43)
[2021-11-11] MEDS: traZODone HCL 50 MG TABLET PO (00:24)
[2021-11-11] MEDS: Acetaminophen 325 MG TABLET 650 MG PO (06:18)
[2021-11-11 08:15] VITALS: BP 126/78; PULSE 60; RESP 17; TEMP 35.9; O2SAT 98
[2021-11-11] MEDS: Nicotine 21 MG PATCH.TD24 TRANSDERMA (08:23)
[2021-11-11] MEDS: metFORMIN HCl 1,000 MG TABLET 1000 MG PO ×2 (08:25→17:39)
[2021-11-11] MEDS: methADONE HCl 20 MG/2 ML ORAL.CONC 55 MG PO (08:25)
[2021-11-11] MEDS: lisinopriL 10 MG TABLET PO (08:26)
[2021-11-11] MEDS: cloNIDine HCL 0.1 MG TABLET PO ×2 (08:45→23:37)
[2021-11-11 08:59] LABS: Glucose, Whole Blood 280 mg/dL (60-115)
[2021-11-11] MEDS: Insulin Lispro 100 UNIT/ML 3 ML VIAL SUBCUT ×4 (09:04→21:03)
--- NOTE | 2021-11-11 09:10 | P.PNPSI_ITS ---
Subjective Subjective Date of Service: 11/11/21 Reason For Visit: PTSD, Alcohol use d/o, PDD recurrent episode Subjective Notes: Conditional Voluntary Interim History: Pt reports sleeping and eating well. He denies SI/HI, less anxious. reports acute abdominal pain- hospitalist consult placed. plan for d/c Sunday Medication Compliance: Yes Review of Systems Review of Systems Denies chest pain Denies shortness of breath Denies nausea vomiting diarrhea Admits to diffuse abdominal pain worse with walking Yes all other systems are reviewed and are negative Constitutional: Reports as per HPI Mental Status Exam Mental Status Exam Patient Appearance: Well Grooomed and Appropriate Patient Orientation: Person, Place, Time and Situation Level of Consciousness: Awake and Appropriate Patient Behavior: Appropriate and Talkative Mood Description: Appropriate Affect Description: Appropriate Patient Cognition Impaired: No Ability to Follow Directions: Good Speech Pattern: Clear Diagnostics Vital Signs (24Hr): Vital Signs - 24 hr 11/11/21 13:38 11/11/21 18:00 11/11/21 23:35 Temperature 98.3 F 98.6 F Pulse Rate 83 104 H 94 Respiratory Rate 17 18 18 Blood Pressure 133/75 109/68 122/58 L Pulse Oximetry 95 97 BMI result Body Mass Index 33.7 Labs Results: 11/11/21 11:19 11/11/21 11:19 Labs: Laboratory Results - last 48 hr 11/08/21 11/10/21 11/10/21 18:31 12:03 17:32 WBC RBC Hgb Hct MCV MCH MCHC RDW Plt Count MPV Immature Gran % (Auto) Neut % (Auto) Lymph % (Auto) [place] % (Auto) Eos % (Auto) Baso % (Auto) Lymph # (Auto) [place] # (Auto) Eos # (Auto) Baso # (Auto) Abs Immat Gran (auto) Absolute Neuts (auto) Absolute Nucleated RBC Nucleated RBC % (auto) Sodium Potassium Chloride Carbon Dioxide Anion Gap BUN Creatinine Estim Creat Clear Calc Estimated GFR POC Glucose 322 H 317 H Random Glucose Calcium Total Bilirubin AST ALT Alkaline Phosphatase Total Protein Albumin Hepatitis C Ab (EIA) Nonreactive 11/10/21 11/11/21 11/11/21 20:35 08:17 11:19 WBC 4.4 L RBC 4.18 L Hgb 12.3 L Hct 37.9 L MCV 90.7 MCH 29.4 MCHC 32.5 RDW 12.5 Plt Count 212 MPV 9.5 Immature Gran % (Auto) 0.2 Neut % (Auto) 53.7 Lymph % (Auto) 29.5 [place] % (Auto) 13.7 H Eos % (Auto) 2.7 Baso % (Auto) 0.2 Lymph # (Auto) 1.3 [place] # (Auto) 0.6 Eos # (Auto) 0.1 Baso # (Auto) 0.0 Abs Immat Gran (auto) 0.01 Absolute Neuts (auto) 2.3 Absolute Nucleated RBC 0.000 Nucleated RBC % (auto) 0.0 Sodium Potassium Chloride Carbon Dioxide Anion Gap BUN Creatinine Estim Creat Clear Calc Estimated GFR POC Glucose 310 H 280 H Random Glucose Calcium Total Bilirubin AST ALT Alkaline Phosphatase Total Protein Albumin Hepatitis C Ab (EIA) 11/11/21 11/11/21 11/11/21 11:19 12:32 17:29 WBC RBC Hgb Hct MCV MCH MCHC RDW Plt Count MPV Immature Gran % (Auto) Neut % (Auto) Lymph % (Auto) [place] % (Auto) Eos % (Auto) Baso % (Auto) Lymph # (Auto) [place] # (Auto) Eos # (Auto) Baso # (Auto) Abs Immat Gran (auto) Absolute Neuts (auto) Absolute Nucleated RBC Nucleated RBC % (auto) Sodium 139 Potassium 4.3 Chloride 99 Carbon Dioxide 35 H Anion Gap 9 L BUN 15 Creatinine 1.03 Estim Creat Clear Calc 101.9 Estimated GFR > 60 POC Glucose 227 H 212 H Random Glucose 257 H D Calcium 9.4 D Total Bilirubin 0.5 AST 50 H ALT 69 H Alkaline Phosphatase 96 Total Protein 6.7 Albumin 3.9 Hepatitis C Ab (EIA) 11/11/21 11/11/21 11/12/21 20:50 23:39 08:02 WBC RBC Hgb Hct MCV MCH MCHC RDW Plt Count MPV Immature Gran % (Auto) Neut % (Auto) Lymph % (Auto) [place] % (Auto) Eos % (Auto) Baso % (Auto) Lymph # (Auto) [place] # (Auto) Eos # (Auto) Baso # (Auto) Abs Immat Gran (auto) Absolute Neuts (auto) Absolute Nucleated RBC Nucleated RBC % (auto) Sodium Potassium Chloride Carbon Dioxide Anion Gap BUN Creatinine Estim Creat Clear Calc Estimated GFR POC Glucose 247 H 219 H 278 H Random Glucose Calcium Total Bilirubin AST ALT Alkaline Phosphatase Total Protein Albumin Hepatitis C Ab (EIA) Medications Medications Current Medications Acetaminophen (Acetaminophen 325 Mg Tablet) 650 mg PO Q6H PRN PRN Reason: Headache/Pain Mild Scale (1-3) Last Admin: 11/11/21 06:18 Dose: 650 mg Documented by: Al Hydroxide/Mg Hydroxide (Magnesium Hydrox/Alum Hydrox 30 Ml Oral.Susp) 30 ml PO Q6H PRN PRN Reason: Heartburn/Nausea Last Admin: 11/11/21 09:37 Dose: 30 ml Documented by: Chlorpromazine HCl (Chlorpromazine Hcl 100 Mg Tablet) 100 mg PO Q6H PRN PRN Reason: agitation Last Admin: 11/11/21 23:37 Dose: 100 mg Documented by: Clonidine HCl (Clonidine Hcl 0.1 Mg Tablet) 0.1 mg PO BID PRN; Protocol PRN Reason: anxiety Last Admin: 11/11/21 23:37 Dose: 0.1 mg Documented by: Gabapentin (Gabapentin 100 Mg Capsule) 200 mg PO BID@0900,1500 PRN PRN Reason: anxiety/neuropathic pain Last Admin: 11/11/21 15:21 Dose: 200 mg Documented by: Gabapentin (Gabapentin 400 Mg Capsule) 400 mg PO BEDTIME NIRAJ Last Admin: 11/11/21 21:00 Dose: 400 mg Documented by: Hydroxyzine HCl (Hydroxyzine Hcl 25 Mg Tablet) 25 mg PO Q6H PRN PRN Reason: Anxiety Last Admin: 11/11/21 23:37 Dose: 25 mg Documented by: Insulin Glargine (Insulin Glargine,Hum.Rec.Anlog 100 Unit/Ml 10 Ml Vial) 30 unit SUBCUT BEDTIME NIRAJ Last Admin: 11/11/21 21:01 Dose: 30 unit Documented by: Insulin Human Lispro (Insulin Lispro 100 Unit/Ml 3 Ml Vial) 0 unit SUBCUT QIDACHS NIRAJ; Protocol Last Admin: 11/12/21 08:10 Dose: 10 unit Documented by: Lactic Acid (Ammonium Lactate 12 % Cream 140 Gm Tube) 1 appl TOPICAL DAILY NIRAJ; Protocol Last Admin: 11/11/21 13:06 Dose: Not Given Documented by: Lisinopril (Lisinopril 10 Mg Tablet) 10 mg PO DAILY NIRAJ; Protocol Last Admin: 11/11/21 08:26 Dose: 10 mg Documented by: Loperamide HCl (Loperamide Hcl 2 Mg Capsule) 2 mg PO Q6H PRN PRN Reason: Diarrhea Magnesium Hydroxide (Milk Of Magnesia 30 Ml Oral.Susp) 30 ml PO DAILY PRN PRN Reason: Constipation Metformin HCl (Metformin Hcl 1,000 Mg Tablet) 1,000 mg PO BIDWM [facility] Last Admin: 11/12/21 08:13 Dose: 1,000 mg Documented by: Methadone HCl (Methadone Hcl 20 Mg/2 Ml Oral.Conc) 55 mg PO DAILY [facility] Last Admin: 11/12/21 08:13 Dose: 55 mg Documented by: Nicotine (Nicotine 21 Mg Patch.Td24) 21 mg TRANSDERMA DAILY [facility] Last Admin: 11/12/21 08:12 Dose: 21 mg Documented by: Olanzapine (Olanzapine 7.5 Mg Tablet) 15 mg PO BEDTIME [facility] Last Admin: 11/11/21 21:00 Dose: 15 mg Documented by: Trazodone HCl (Trazodone Hcl 50 Mg Tablet) 50 mg PO BEDTIME PRN PRN Reason: Insomnia Last Admin: 11/11/21 00:24 Dose: 50 mg Documented by: Allergies Allergies Allergy/AdvReac Type Severity Reaction Status Date / Time No Known Allergies Allergy Verified 10/04/21 12:40 Assessment & Plan Assessment & Plan (1) Abdominal pain: Status: Acute Code(s): R10.9 - Unspecified abdominal pain Plan 46-year-old male with approximately 12 hour onset of right-sided abdominal pain radiating to mid abdomen worsened by food. This is own the backdrop of type 2 diabetes and hypertension 1. Abdominal pain -discussed with radiology; will order CT abdomen with IV p.o. contrast and routine labs -will follow-up exam after studies complete -NPO until workup complete Discussed with nursing staff and radiology I spent minutes with the patient and/or on the patient floor today, greater than?50% of which was spent counseling/coordinating care. Reason for contiued inpatient stay Substantial Risk for: harm to self
[2021-11-11] MEDS: Magnesium Hydrox/Alum Hydrox 30 ML ORAL.SUSP PO (09:37)
--- NOTE | 2021-11-11 10:27 | PC.NURSE ---
Skin assessment completed. Patient has very dry, scaly cracked heels/feet. Ammonium lactate 12% cream ordered to be applied daily. No other skin issues noted at this time.
[2021-11-11] MEDS: Simethicone 80 MG TAB.CHEW PO (10:45)
--- NOTE | 2021-11-11 11:08 | HO.HSGERICON ---
History of Present Illness Data of Consult Service Date: 11/11/21 Requesting physician: Aaliyah Singh Primary Care Provider: [facility] HPI Call to see 46-year-old male with past medical history of type 2 diabetes and opiate use disorder complaining of abdominal pain onset last evening after supper. States the pain is sharp, constant and located right flank traveling to mid abdomen. Stated food exacerbated this. He denies injury. He states he has bowel movement without blood. Discussed with staff; no fever chills Review of Systems Review of Systems: Denies chest pain Denies shortness of breath Denies nausea vomiting diarrhea Admits to diffuse abdominal pain worse with walking PMFSH Medical History Essential hypertension Type 2 diabetes, uncontrolled, with neuropathy Family History Mother Diabetes Father HTN (hypertension) Surgical History History of tooth extraction Social History Household Members: None Housing: Apartment Do you presently have visiting nurse or other home services: No Alcohol intake: never Patient Tobacco Use Status: Former Tobacco user Tobacco use type: Cigarette e-Cigarette/Vaping Use: Never Used Patient Interested in Nicotine Replacement: No Use of substances other than those prescribed or required for medical reasons: Yes Substance Use Type: Crack/Cocaine and Heroin Substance Use Frequency: Daily Last Used Substance: Just Prior to Admission Currently Displaying Signs/Symptoms of Drug Intoxication Withdrawal: No Any prior treatment program specific to substance use: Yes ([facility]) Have you been hit, kicked, punched, or otherwise hurt by someone within the past year? If so, by whom?: No Do you feel safe in your current relationship?: No Is there a partner from a previous relationship who is making you feel unsafe now?: No Are you made to feel afraid or neglected: No Advance Directives: No Advance Directives Information Provided: No Do you have thoughts of harming others: None Do you have a plan to hurt others: No Plan Recently lost weight without trying: Yes How much weight loss: Unsure Eating poorly because of decreased appetite: Yes Nutrition screen score: 5 Poor oral hygiene: No service: No Sexual orientation: Did not discuss. Meds Allergies Allergy/AdvReac Type Severity Reaction Status Date / Time No Known Allergies Allergy Verified 10/04/21 12:40 Active Medications: Current Medications Acetaminophen (Acetaminophen 325 Mg Tablet) 650 mg PO Q6H PRN PRN Reason: Headache/Pain Mild Scale (1-3) Last Admin: 11/11/21 06:18 Dose: 650 mg Documented by: Al Hydroxide/Mg Hydroxide (Magnesium Hydrox/Alum Hydrox 30 Ml Oral.Susp) 30 ml PO Q6H PRN PRN Reason: Heartburn/Nausea Last Admin: 11/11/21 09:37 Dose: 30 ml Documented by: Chlorpromazine HCl (Chlorpromazine Hcl 100 Mg Tablet) 100 mg PO Q6H PRN PRN Reason: agitation Last Admin: 11/08/21 18:41 Dose: 100 mg Documented by: Clonidine HCl (Clonidine Hcl 0.1 Mg Tablet) 0.1 mg PO BID PRN; Protocol PRN Reason: anxiety Last Admin: 11/11/21 08:45 Dose: 0.1 mg Documented by: Gabapentin (Gabapentin 100 Mg Capsule) 200 mg PO BID@0900,1500 PRN PRN Reason: anxiety/neuropathic pain Gabapentin (Gabapentin 400 Mg Capsule) 400 mg PO BEDTIME NIRAJ Last Admin: 11/10/21 21:37 Dose: 400 mg Documented by: Hydroxyzine HCl (Hydroxyzine Hcl 25 Mg Tablet) 25 mg PO Q6H PRN PRN Reason: Anxiety Last Admin: 11/10/21 21:37 Dose: 25 mg Documented by: Insulin Glargine (Insulin Glargine,Hum.Rec.Anlog 100 Unit/Ml 10 Ml Vial) 30 unit SUBCUT BEDTIME NIRAJ Last Admin: 11/10/21 21:36 Dose: 30 unit Documented by: Insulin Human Lispro (Insulin Lispro 100 Unit/Ml 3 Ml Vial) 0 unit SUBCUT QIDACHS NIRAJ; Protocol Last Admin: 11/11/21 09:04 Dose: 10 unit Documented by: Lactic Acid (Ammonium Lactate 12 % Cream 140 Gm Tube) 1 appl TOPICAL DAILY NIRAJ; Protocol Lisinopril (Lisinopril 10 Mg Tablet) 10 mg PO DAILY NIRAJ; Protocol Last Admin: 11/11/21 08:26 Dose: 10 mg Documented by: Loperamide HCl (Loperamide Hcl 2 Mg Capsule) 2 mg PO Q6H PRN PRN Reason: Diarrhea Magnesium Hydroxide (Milk Of Magnesia 30 Ml Oral.Susp) 30 ml PO DAILY PRN PRN Reason: Constipation Metformin HCl (Metformin Hcl 1,000 Mg Tablet) 1,000 mg PO BIDWM [facility] Last Admin: 11/11/21 08:25 Dose: 1,000 mg Documented by: Methadone HCl (Methadone Hcl 20 Mg/2 Ml Oral.Conc) 55 mg PO DAILY [facility] Last Admin: 11/11/21 08:25 Dose: 55 mg Documented by: Nicotine (Nicotine 21 Mg Patch.Td24) 21 mg TRANSDERMA DAILY [facility] Last Admin: 11/11/21 08:23 Dose: 21 mg Documented by: Olanzapine (Olanzapine 7.5 Mg Tablet) 15 mg PO BEDTIME [facility] Last Admin: 11/10/21 21:43 Dose: 15 mg Documented by: Trazodone HCl (Trazodone Hcl 50 Mg Tablet) 50 mg PO BEDTIME PRN PRN Reason: Insomnia Last Admin: 11/11/21 00:24 Dose: 50 mg Documented by: Home Medications Medication Instructions Recorded Confirmed Last Taken Type gabapentin 300 mg capsule 1 cap PO BID 11/05/21 11/05/21 Unknown History lisinopril 10 mg tablet 1 tab PO DAILY 11/05/21 11/05/21 Unknown History lorazepam 1 mg tablet 1 mg PO TID PRN 11/05/21 11/05/21 Unknown History melatonin 3 mg tablet 9 mg PO BEDTIME PRN 11/05/21 11/05/21 Unknown History metformin 500 mg tablet,extended 1 tab PO BID 11/05/21 11/05/21 Unknown History release 24 hr methadone 10 mg tablet 20 mg PO DAILY 11/05/21 11/05/21 Unknown History Results Labs CBC and Chem 7: 11/06/21 18:22 Labs: Laboratory Results - last 24 hr 11/10/21 11/10/21 11/10/21 12:03 17:32 20:35 POC Glucose 322 H 317 H 310 H 11/11/21 08:17 POC Glucose 280 H Assessment and Plan (1) Abdominal pain: Status: Acute Plan 46-year-old male with approximately 12 hour onset of right-sided abdominal pain radiating to mid abdomen worsened by food. This is own the backdrop of type 2 diabetes and hypertension 1. Abdominal pain -discussed with radiology; will order CT abdomen with IV p.o. contrast and routine labs -will follow-up exam after studies complete -NPO until workup complete Discussed with nursing staff and radiology Physical Exam Vital Signs: Last Vital Signs Temp 96.7 F L 11/11/21 08:15 Pulse 60 11/11/21 08:15 Resp 17 11/11/21 08:15 BP 126/78 11/11/21 08:15 Pulse Ox 98 11/11/21 08:15 BMI result Body Mass Index 33.7 Const Other: Uncomfortable due to pain Resp Other: Clear to auscultation bilaterally no rales rhonchi wheezes Cardio Other: No S4; positive S1-S2; no S3 murmurs rubs or gallops GI Other: Mild voluntary guarding; tender right upper to mid quadrants radiating to umbilicus. There is no rebound tenderness noted; bowel sounds are quiet Neuro Other: Cranial nerves 2 through 12 grossly intact as tested; motor is 5 of 5 all extremities sensation is intact cognition appropriate Cranial nerves: Yes CN's II-XII intact bilaterally Extrem Other: No edema bilaterally
[2021-11-11 11:27] LABS: MANUAL DIFF FLAG NO
[2021-11-11 11:31] LABS: Basophils Percent Auto 0.2 % (0-2); Eosinophils Absolute Auto 0.1 X10*3/uL (0.0-0.4); Eosinophils Percent Auto 2.7 % (0-4); Hematocrit 37.9 % (42.0-52.0); Hemoglobin 12.3 g/dl (14.0-18.0); Imm Gran Abs Auto 0.01 X10*3/uL (0.00-0.03); Imm Gran Pct Auto 0.2 % (0.0-0.4); Lymphocytes Absolute Auto 1.3 X10*3/uL (1.2-4.9); Lymphocytes Percent Auto 29.5 % (20-40); Mean Corpuscular HGB Conc 32.5 g/dl (31.0-36.0); Mean Corpuscular Hemoglobin 29.4 pg (27.0-33.0); Mean Corpuscular Volume 90.7 fL (80.0-98.0); Mean Platelet Volume 9.5 fL (9.4-12.4); Monocytes Absolute Auto 0.6 X10*3/uL (0.1-1.2); Monocytes Percent Auto 13.7 % (2-11); Neutrophils Absolute Auto 2.3 x10*3/uL (2.0-8.3); Neutrophils Percent Auto 53.7 % (45-73); Platelet Count 212 X10*3/uL (160-400); Red Blood Count 4.18 X10*6/uL (4.60-5.80); Red Cell Distribution Width 12.5 % (11.0-16.0); White Blood Count 4.4 X10*3/uL (4.8-10.8)
[2021-11-11 11:54] LABS: Alanine Aminotransferase 69 U/L (0-40); Albumin Level 3.9 g/dL (3.5-5.0); Alkaline Phosphatase 96 U/L (39-117); Anion Gap 9 (12-20); Aspartate Amino Transferase 50 U/L (5-37); Bilirubin Total 0.5 mg/dL (0.0-1.0); Blood Urea Nitrogen 15 mg/dL (9-16); Calcium 9.4 mg/dL (8.4-10.2); Carbon Dioxide 35 mmol/L (22-29); Chloride 99 mmol/L (96-108); Creatinine Clr Calc Pharmacy 101.9; Estimated Glomerular Filt Rate > 60; Glucose Random 257 mg/dL (60-115); Potassium 4.3 mmol/L (3.3-5.1); Sodium 139 mmol/L (135-145); Total Protein 6.7 g/dL (6.5-8.0)
--- NOTE | 2021-11-11 12:24 | PC.NURSE ---
Patient seen by Hospitalist, Dr. Ratliff for right lower quadrant pain. CT scan with IV contrast ordered. Patient refused IV and Refused CT scan stating I would rather deal with the pain .
[2021-11-11 12:37] LABS: Glucose, Whole Blood 227 mg/dL (60-115)
[2021-11-11 13:38] VITALS: BP 133/75; PULSE 83; RESP 17; TEMP 36.8; O2SAT 95
[2021-11-11] MEDS: Gabapentin 100 MG CAPSULE 200 MG PO (15:21)
[2021-11-11] MEDS: hydrOXYzine HCL 25 MG TABLET PO ×2 (15:21→23:37)
[2021-11-11 17:33] LABS: Glucose, Whole Blood 212 mg/dL (60-115)
[2021-11-11 18:00] VITALS: BP 109/68; PULSE 104; RESP 18; TEMP 37; O2SAT 97
[2021-11-11 20:55] LABS: Glucose, Whole Blood 247 mg/dL (60-115)
[2021-11-11] MEDS: OLANZapine 7.5 MG TABLET 15 MG PO (21:00)
[2021-11-11] MEDS: Gabapentin 400 MG CAPSULE PO (21:00)
[2021-11-11] MEDS: Insulin Glargine,Hum.rec.anlog 100 UNIT/ML 10 ML VIAL 30 UNIT SUBCUT (21:01)
[2021-11-11 23:35] VITALS: BP 122/58; PULSE 94; RESP 18
[2021-11-11] MEDS: chlorproMAZINE HCl 100 MG TABLET PO (23:37)
[2021-11-11 23:44] LABS: Glucose, Whole Blood 219 mg/dL (60-115)
[2021-11-12 08:00] VITALS: PULSE 72; RESP 16; TEMP 36.6
[2021-11-12 08:05] LABS: Glucose, Whole Blood 278 mg/dL (60-115)
[2021-11-12] MEDS: Insulin Lispro 100 UNIT/ML 3 ML VIAL SUBCUT ×4 (08:10→20:23)
[2021-11-12] MEDS: Nicotine 21 MG PATCH.TD24 TRANSDERMA (08:12)
[2021-11-12] MEDS: methADONE HCl 20 MG/2 ML ORAL.CONC 55 MG PO (08:13)
[2021-11-12] MEDS: metFORMIN HCl 1,000 MG TABLET 1000 MG PO ×2 (08:13→16:17)
[2021-11-12] MEDS: lisinopriL 10 MG TABLET PO (09:11)
[2021-11-12] MEDS: Gabapentin 100 MG CAPSULE 200 MG PO ×2 (09:17→21:00)
[2021-11-12] MEDS: cloNIDine HCL 0.1 MG TABLET PO ×2 (09:18→20:26)
[2021-11-12 12:53] LABS: Glucose, Whole Blood 292 mg/dL (60-115)
[2021-11-12] MEDS: chlorproMAZINE HCl 100 MG TABLET PO ×2 (16:17→21:00)
[2021-11-12] MEDS: hydrOXYzine HCL 25 MG TABLET PO ×2 (16:17→21:01)
--- NOTE | 2021-11-12 16:28 | HO.PSYCHPN ---
Subjective Subjective Date of Service: 11/12/21 Reason For Visit: PTSD, Alcohol use d/o, PDD recurrent episode Subjective Notes: Conditional Voluntary Interim History: Met with patient and discussed with Nursing. Noted the was abdominal discomfort earlier in the week and patient refused CT scan and symptoms appear to be better. Blood sugars have improved and now in the 200s. Patient reports feeling much better physically and emotionally. No longer in opiate withdrawal. Feels positive the blood sugar control is much better along with physical well-being. No discomfort noted. Feels mood is brighter. No SI. No psychosis. No medication concerns. Interacting well with peers on the unit and enjoying basketball on TV. Looking forward to discharge after the weekend Medication Compliance: Yes Side effects from medications: No Attending Groups: Yes Review of Systems Acute medical concerns: No Review of Systems Review of Systems unremarkable Mental Status Exam Mental Status Exam Narrative: pleasant. Engaged. Casually dressed and fair hygiene. Organized. Affect does appear bright. No SI. No HI. No psychosis or agitation. Insight and judgment fair Diagnostics Vital Signs (24Hr): Vital Signs - 24 hr 11/11/21 18:00 11/11/21 23:35 11/12/21 08:00 Temperature 98.6 F 97.8 F Pulse Rate 104 H 94 72 Respiratory Rate 18 18 16 Blood Pressure 109/68 122/58 L Pulse Oximetry 97 BMI result Body Mass Index 33.7 Labs Results: 11/11/21 11:19 11/11/21 11:19 Labs: Laboratory Results - last 48 hr 11/10/21 11/10/21 11/11/21 17:32 20:35 08:17 WBC RBC Hgb Hct MCV MCH MCHC RDW Plt Count MPV Immature Gran % (Auto) Neut % (Auto) Lymph % (Auto) [place] % (Auto) Eos % (Auto) Baso % (Auto) Lymph # (Auto) [place] # (Auto) Eos # (Auto) Baso # (Auto) Abs Immat Gran (auto) Absolute Neuts (auto) Absolute Nucleated RBC Nucleated RBC % (auto) Sodium Potassium Chloride Carbon Dioxide Anion Gap BUN Creatinine Estim Creat Clear Calc Estimated GFR POC Glucose 317 H 310 H 280 H Random Glucose Calcium Total Bilirubin AST ALT Alkaline Phosphatase Total Protein Albumin 11/11/21 11/11/21 11/11/21 11:19 11:19 12:32 WBC 4.4 L RBC 4.18 L Hgb 12.3 L Hct 37.9 L MCV 90.7 MCH 29.4 MCHC 32.5 RDW 12.5 Plt Count 212 MPV 9.5 Immature Gran % (Auto) 0.2 Neut % (Auto) 53.7 Lymph % (Auto) 29.5 [place] % (Auto) 13.7 H Eos % (Auto) 2.7 Baso % (Auto) 0.2 Lymph # (Auto) 1.3 [place] # (Auto) 0.6 Eos # (Auto) 0.1 Baso # (Auto) 0.0 Abs Immat Gran (auto) 0.01 Absolute Neuts (auto) 2.3 Absolute Nucleated RBC 0.000 Nucleated RBC % (auto) 0.0 Sodium 139 Potassium 4.3 Chloride 99 Carbon Dioxide 35 H Anion Gap 9 L BUN 15 Creatinine 1.03 Estim Creat Clear Calc 101.9 Estimated GFR > 60 POC Glucose 227 H Random Glucose 257 H D Calcium 9.4 D Total Bilirubin 0.5 AST 50 H ALT 69 H Alkaline Phosphatase 96 Total Protein 6.7 Albumin 3.9 11/11/21 11/11/21 11/11/21 17:29 20:50 23:39 WBC RBC Hgb Hct MCV MCH MCHC RDW Plt Count MPV Immature Gran % (Auto) Neut % (Auto) Lymph % (Auto) [place] % (Auto) Eos % (Auto) Baso % (Auto) Lymph # (Auto) [place] # (Auto) Eos # (Auto) Baso # (Auto) Abs Immat Gran (auto) Absolute Neuts (auto) Absolute Nucleated RBC Nucleated RBC % (auto) Sodium Potassium Chloride Carbon Dioxide Anion Gap BUN Creatinine Estim Creat Clear Calc Estimated GFR POC Glucose 212 H 247 H 219 H Random Glucose Calcium Total Bilirubin AST ALT Alkaline Phosphatase Total Protein Albumin 11/12/21 11/12/21 08:02 12:50 WBC RBC Hgb Hct MCV MCH MCHC RDW Plt Count MPV Immature Gran % (Auto) Neut % (Auto) Lymph % (Auto) [place] % (Auto) Eos % (Auto) Baso % (Auto) Lymph # (Auto) [place] # (Auto) Eos # (Auto) Baso # (Auto) Abs Immat Gran (auto) Absolute Neuts (auto) Absolute Nucleated RBC Nucleated RBC % (auto) Sodium Potassium Chloride Carbon Dioxide Anion Gap BUN Creatinine Estim Creat Clear Calc Estimated GFR POC Glucose 278 H 292 H Random Glucose Calcium Total Bilirubin AST ALT Alkaline Phosphatase Total Protein Albumin Medications Medications Current Medications Acetaminophen (Acetaminophen 325 Mg Tablet) 650 mg PO Q6H PRN PRN Reason: Headache/Pain Mild Scale (1-3) Last Admin: 11/11/21 06:18 Dose: 650 mg Documented by: Al Hydroxide/Mg Hydroxide (Magnesium Hydrox/Alum Hydrox 30 Ml Oral.Susp) 30 ml PO Q6H PRN PRN Reason: Heartburn/Nausea Last Admin: 11/11/21 09:37 Dose: 30 ml Documented by: Chlorpromazine HCl (Chlorpromazine Hcl 100 Mg Tablet) 100 mg PO Q6H PRN PRN Reason: agitation Last Admin: 11/12/21 16:17 Dose: 100 mg Documented by: Clonidine HCl (Clonidine Hcl 0.1 Mg Tablet) 0.1 mg PO BID PRN; Protocol PRN Reason: anxiety Last Admin: 11/12/21 09:18 Dose: 0.1 mg Documented by: Gabapentin (Gabapentin 100 Mg Capsule) 200 mg PO BID@0900,1500 PRN PRN Reason: anxiety/neuropathic pain Last Admin: 11/12/21 09:17 Dose: 200 mg Documented by: Gabapentin (Gabapentin 400 Mg Capsule) 400 mg PO BEDTIME NIRAJ Last Admin: 11/11/21 21:00 Dose: 400 mg Documented by: Hydroxyzine HCl (Hydroxyzine Hcl 25 Mg Tablet) 25 mg PO Q6H PRN PRN Reason: Anxiety Last Admin: 11/12/21 16:17 Dose: 25 mg Documented by: Insulin Glargine (Insulin Glargine,Hum.Rec.Anlog 100 Unit/Ml 10 Ml Vial) 30 unit SUBCUT BEDTIME NIRAJ Last Admin: 11/11/21 21:01 Dose: 30 unit Documented by: Insulin Human Lispro (Insulin Lispro 100 Unit/Ml 3 Ml Vial) 0 unit SUBCUT QIDACHS NIRAJ; Protocol Last Admin: 11/12/21 12:53 Dose: 10 unit Documented by: Lactic Acid (Ammonium Lactate 12 % Cream 140 Gm Tube) 1 appl TOPICAL DAILY NIRAJ; Protocol Last Admin: 11/12/21 12:54 Dose: Not Given Documented by: Lisinopril (Lisinopril 10 Mg Tablet) 10 mg PO DAILY NIRAJ; Protocol Last Admin: 11/12/21 09:11 Dose: 10 mg Documented by: Loperamide HCl (Loperamide Hcl 2 Mg Capsule) 2 mg PO Q6H PRN PRN Reason: Diarrhea Magnesium Hydroxide (Milk Of Magnesia 30 Ml Oral.Susp) 30 ml PO DAILY PRN PRN Reason: Constipation Metformin HCl (Metformin Hcl 1,000 Mg Tablet) 1,000 mg PO BIDWM [facility] Last Admin: 11/12/21 16:17 Dose: 1,000 mg Documented by: Methadone HCl (Methadone Hcl 20 Mg/2 Ml Oral.Conc) 55 mg PO DAILY [facility] Last Admin: 11/12/21 08:13 Dose: 55 mg Documented by: Nicotine (Nicotine 21 Mg Patch.Td24) 21 mg TRANSDERMA DAILY [facility] Last Admin: 11/12/21 08:12 Dose: 21 mg Documented by: Olanzapine (Olanzapine 7.5 Mg Tablet) 15 mg PO BEDTIME [facility] Last Admin: 11/11/21 21:00 Dose: 15 mg Documented by: Trazodone HCl (Trazodone Hcl 50 Mg Tablet) 50 mg PO BEDTIME PRN PRN Reason: Insomnia Last Admin: 11/11/21 00:24 Dose: 50 mg Documented by: Allergies Allergies Allergy/AdvReac Type Severity Reaction Status Date / Time No Known Allergies Allergy Verified 10/04/21 12:40 Assessment & Plan Assessment & Plan (1) Mood disorder: Status: Acute Code(s): F39 - Unspecified mood [affective] disorder Assessment and Plan: 11/12/2021:mood appears to be responding to current treatment team regimen. Will therefore make no changes. Discharge planning for after the weekend. (2) Abdominal pain: Status: Acute Code(s): R10.9 - Unspecified abdominal pain Plan 46-year-old male with approximately 12 hour onset of right-sided abdominal pain radiating to mid abdomen worsened by food. This is own the backdrop of type 2 diabetes and hypertension 1. Abdominal pain -discussed with radiology; will order CT abdomen with IV p.o. contrast and routine labs -will follow-up exam after studies complete -NPO until workup complete Discussed with nursing staff and radiology 11/12/2021: Patient declined testing as above yesterday. Reports no symptoms. I spent minutes with the patient and/or on the patient floor today, greater than?50% of which was spent counseling/coordinating care. Reason for contiued inpatient stay Substantial Risk for: rapid decompensation
[2021-11-12 17:34] LABS: Glucose, Whole Blood 289 mg/dL (60-115)
[2021-11-12 19:53] VITALS: BP 105/55; PULSE 74; RESP 18; TEMP 36.7; O2SAT 95
[2021-11-12 20:16] LABS: Glucose, Whole Blood 217 mg/dL (60-115)
[2021-11-12] MEDS: Gabapentin 400 MG CAPSULE PO (20:21)
[2021-11-12] MEDS: OLANZapine 7.5 MG TABLET 15 MG PO (20:21)
[2021-11-12] MEDS: Insulin Glargine,Hum.rec.anlog 100 UNIT/ML 10 ML VIAL 30 UNIT SUBCUT (20:22)
[2021-11-12] MEDS: LORazepam 1 MG TABLET 2 MG PO (21:15)
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
[2021-11-13] MEDS: metFORMIN HCl 1,000 MG TABLET 1000 MG PO ×2 (08:40→17:59)
[2021-11-13] MEDS: lisinopriL 10 MG TABLET PO (08:40)
[2021-11-13] MEDS: Nicotine 21 MG PATCH.TD24 TRANSDERMA (08:41)
[2021-11-13] MEDS: Ammonium Lactate 12 % Cream 140 GM TUBE 1 APPL TOPICAL (08:42)
[2021-11-13 08:43] LABS: Glucose, Whole Blood 290 mg/dL (60-115)
[2021-11-13] MEDS: methADONE HCl 20 MG/2 ML ORAL.CONC 55 MG PO (08:43)
[2021-11-13 08:45] VITALS: BP 114/61; PULSE 86; RESP 18; TEMP 36.3; O2SAT 96
[2021-11-13] MEDS: Insulin Lispro 100 UNIT/ML 3 ML VIAL SUBCUT ×4 (08:47→20:49)
[2021-11-13 12:48] LABS: Glucose, Whole Blood 247 mg/dL (60-115)
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
[2021-11-13] MEDS: cloNIDine HCL 0.1 MG TABLET PO (15:21)
[2021-11-13] MEDS: Gabapentin 100 MG CAPSULE 200 MG PO (15:21)
[2021-11-13 17:57] LABS: Glucose, Whole Blood 324 mg/dL (60-115)
[2021-11-13 18:00] VITALS: BP 101/60; PULSE 75; RESP 18; TEMP 36.9; O2SAT 97
[2021-11-13 20:42] LABS: Glucose, Whole Blood 212 mg/dL (60-115)
[2021-11-13] MEDS: chlorproMAZINE HCl 100 MG TABLET PO (20:48)
[2021-11-13] MEDS: OLANZapine 7.5 MG TABLET 15 MG PO (20:48)
[2021-11-13] MEDS: Gabapentin 400 MG CAPSULE PO (20:48)
[2021-11-13] MEDS: traZODone HCL 50 MG TABLET PO ×2 (20:49→23:41)
[2021-11-13] MEDS: Insulin Glargine,Hum.rec.anlog 100 UNIT/ML 10 ML VIAL 30 UNIT SUBCUT (20:50)
[2021-11-13] MEDS: diphenhydrAMINE HCL 50 MG/ML VIAL IM (23:41)
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
[2021-11-14 08:26] VITALS: BP 123/71; PULSE 98; RESP 17; TEMP 36.6; O2SAT 96
[2021-11-14] MEDS: methADONE HCl 20 MG/2 ML ORAL.CONC 55 MG PO (08:39)
[2021-11-14] MEDS: metFORMIN HCl 1,000 MG TABLET 1000 MG PO (08:40)
[2021-11-14] MEDS: lisinopriL 10 MG TABLET PO (08:40)
[2021-11-14] MEDS: Nicotine 21 MG PATCH.TD24 TRANSDERMA (08:40)
[2021-11-14 08:49] LABS: Glucose, Whole Blood 302 mg/dL (60-115)
[2021-11-14] MEDS: Insulin Lispro 100 UNIT/ML 3 ML VIAL SUBCUT ×2 (09:03→13:51)
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
[2021-11-14 12:36] LABS: Glucose, Whole Blood 302 mg/dL (60-115)
[2021-11-14 12:51] VITALS: BP 109/65; PULSE 92
[2021-11-14] MEDS: cloNIDine HCL 0.1 MG TABLET PO (12:54)
[2021-11-14] MEDS: Gabapentin 100 MG CAPSULE 200 MG PO (12:54)
--- NOTE | 2021-11-14 17:35 | PC.NURSE ---
Upon going through patients belongings and discharge paperwork for discharge preparation it was noticed by patient that the wallet in that was inventoried in his belongings was not his. It had another miquel license, debit card, credit cards, ect in it. Patient reported that he had a cell phone that he had last seen prior to his transfer from [facility]. Eden Lyn and Idalia Iqbal were notified. [facility] security was called and informed of the possible mix up in patient belongings. Awaiting call back from [facility] Security. Wallet left in nurses station on M3 per Eden.
--- NOTE | 2021-11-14 17:58 | PC.NURSE ---
Patient is alert and oriented x4. Patient is pleasant and cooperative upon approach. Patient is in agreement with discharge instructions and plan. Patient denies SI/HI/AH/VH. Denied anxiety and depression at this time. Patient reported that he feels safe to go. Patient reported being excited and looking forward to seeing his . Patient denied physical complaints at this time.
== END 2021-11-14 17:45 | disposition home or self-care (01) | DRG 753 ==
PROVIDERS: Family Medicine; Hospitalist; Nurse Practitioner Psychiatric/Mental Health; Registered Nurse; Admitting Provider Psychiatry & Neurology Psychiatry; Visit Provider Social Worker
DX: F31.9 Bipolar disorder, unspecified (principal); R45.851 Suicidal ideations; E11.40 Type 2 diabetes mellitus with diabetic neuropathy, unspecified; F14.10 Cocaine abuse, uncomplicated; E11.65 Type 2 diabetes mellitus with hyperglycemia; R10.9 Unspecified abdominal pain; F10.10 Alcohol abuse, uncomplicated; F11.23 Opioid dependence with withdrawal; F43.10 Post-traumatic stress disorder, unspecified; I10 Essential (primary) hypertension; Z79.84 Long term (current) use of oral hypoglycemic drugs; Z79.899 Other long term (current) drug therapy
CPT/HCPCS: 36415; 80048; 80053; 80061; 82009; 82565; 82607; 82746; 82803; 82947; 83036; 83735; 84439; 84443; 85025; 86704; 86706; 86709; 86803; 87340; 87389; J1200; J3230

== ENCOUNTER 2025-06-26 14:20 | Inpatient (IN) | payer MEDICAID, SELFPAY ==
[2025-06-26] VITALS (8 sets, daily range): BP systolic 111–158; BP diastolic 68–97; PULSE 79–93; RESP 14–21; TEMP 36.8–37; O2SAT 88–96; BMI 37.1
--- NOTE | 2025-06-26 | ECG_ITS ---
Test Reason : SOB Blood Pressure : */* mmHG Vent. Rate : 86 BPM Atrial Rate : 86 BPM P-R Int : 172 ms QRS Dur : 94 ms QT Int : 380 ms P-R-T Axes : 17 -6 11 degrees QTcB Int : 454 ms Normal sinus rhythm Normal ECG No previous ECGs available Referred By: Generic ED Physician Electronically Signed By: Osvaldo Sheppard
--- NOTE | ~2025-06-26 | XR_ITS ---
EXAMINATION: XR CHEST CLINICAL INFORMATION: SOB/CP COMPARISON: None available. TECHNIQUE: 2 views of the chest were obtained. FINDINGS: No significant abnormality is noted involving the heart, lungs, mediastinum, bony thorax or soft tissues. XR/XR chest 2V IMPRESSION: Unremarkable examination. Electronically signed by: Cande Taylor MD 06/26/2025 03:07 PM [facility]
--- NOTE | ~2025-06-26 | CT_ITS ---
CLINICAL HISTORY: hypoxia, elevated dimer CT angiography chest with contrast. 3D Postprocessing. Comparison: None provided Findings: The heart size is normal. RV/LV ratio is normal. The left vertebral artery originates from the aortic arch. No main or segmental pulmonary emboli identified. Hiatal hernia. Bibasilar dependent subsegmental atelectasis. Hepatic steatosis. No acute fractures. IMPRESSION: 1. No main or segmental pulmonary emboli identified. 2. Hiatal hernia. 3. Hepatic steatosis. 4. No acute intrathoracic findings. This document has been electronically signed by: Marquise Marino MD on 06/26/2025 20:11:50
--- OUTSIDE RECORDS SUMMARY | 2025-06-26 14:00 | XMS_ITS | Encounter Summary ---
Author Organization [employer] Address [address] [place] [address] 7 [place] [address] Care Team Providers Care Recruitment Internship Name Role Phone Cat Peck JEET Primary Care Provider [phone] Reason for Visit * Reason Comments sick visit Encounter Details Date Type Department Care Team ([facility] st Contact Info) Description 06/26/2025 2:00 PM EST Office Visit [facility] [address] [place] [address] Social History Tobacco Use Types Packs/Day Years Used Date Smoking Tobacco: Former Cigarettes Passive Smoke Exposure: Past Smokeless Tobacco: Never Comments:Vape Alcohol Use Standard Drinks/Week Comments Never 0 (1 standard drink = 0.6 oz pur e alcohol) Depression Answer Date Recorded Patient Health Questionnaire-9 Score 17 08/22/2023 Patient Health Questionnaire-9 Score 17 08/22/2023 Last PHQ-9: Questionnaire Data Not on file 0 08/22/2023 Housing Stability Answer Date Recorded What is your housing situation today? I do not have housing (Staying with others, in a hotel, in a detention, living outside on the street, on a beach, in a car, or in a park 05/14/[address] you li ve. Do you have problems with any of the following? Not on file 05/14/2025 Food Insecurity Answer Date Recorded Within the past 12 months, y ou worried that your food would run out before you got money to buy more: Often true 05/14/2025 Within the past 12 months,th e food you bought just didn't last and you didn't have enough money to get more: Often true Transportation Answer Date Recorded In the past 12 months, has l ack of transportation kept you from medical appts, meetings, work or from getting things needed for daily living? Yes, it has kept me from medical appointments or getting medications. 05/14/2025 Utilities Answer Date Recorded In the past 12 months, has t he electric, gas, oil or water company threatened to shut off services in your home? No 05/14/2025 Depression Answer Date Recorded Patient Health Questionnaire-2 Score 3 08/22/2023 Internet Access Answer Date Recorded Internet Access Q1 No 05/14/2025 Internet Access Q2 I cannot afford it 05/14/2025 Sex and Gender Information Value Date Recorded Sex Assigned at Male 06/19/2022 10:17 AM EDT Legal Sex Male 10:17 AM EDT Gender Identity Male 06/19/2022 10:17 AM EDT Sexual Orientation Straight 06/19/2022 10 :17 AM EDT documented as of this encounter Last Filed Vital Signs Vital Sign Reading Time Taken Comments Blood Pressure 132/77 06/26/2025 1:54 PM EST Pulse 88 06/26/2025 1:54 PM EST Temperature 36.6 C (97.8 F) 06/26/2025 1:54 PM EST Respiratory Rate 24 06/26/2025 1:54 PM EST Oxygen Saturation 88% 06/26/2025 1:54 PM EST Inhaled Oxygen Concentration - - Weight 109 kg (239 lb 9.6 oz) 06/26/2025 1:54 PM EST Height 172.7 cm (5' 8 ) 06/26/2025 1:54 PM EST Body Mass Index 36.43 06/26/2025 1:54 PM EST documented in this encounter Plan of Treatment Not on file documented as of this encounter Visit Diagnoses Not on filedocumented in this encounter Additional Health Concerns Assessment Noted Time PHQ-9 Depression Total Score: 17 024 10:49 AM EST documented as of this encounter Care Teams Recruitment Internship Relationship Specialty Start Date End Date Cat Peck FNP [address] [place] [address] PCP - General Family Medicine 04/19/22 documented as of this encounter
[2025-06-26 14:57] LABS: MANUAL DIFF FLAG NO
[2025-06-26 14:59] LABS: Hematocrit 35.7 % (42.0-52.0); Hemoglobin 12.1 g/dl (14.0-18.0); Imm Gran Abs Auto 0.03 X10*3/uL (0.00-0.03); Imm Gran Pct Auto 0.3 % (0.0-0.4); Lymphocytes Absolute Auto 1.8 X10*3/uL (1.2-4.9); Mean Corpuscular HGB Conc 33.9 g/dl (31.0-36.0); Mean Corpuscular Hemoglobin 28.6 pg (27.0-33.0); Mean Corpuscular Volume 84.4 fL (80.0-98.0); NRBC Abs Auto 0.000 X10*3/uL (0.0-0.012); NRBC Pct Auto 0.0 /100WBC (0.0-0.2); Platelet Count 262 X10*3/uL (160-400); Red Blood Count 4.23 X10*6/uL (4.60-5.80); White Blood Count 9.8 X10*3/uL (4.8-10.8)
[2025-06-26 15:18] LABS: COVID-19 Test Negative (Negative); IDNOW Serial# 55D5AD1C; IDNOW Serial# 58CA691E; Influenza B2 Negative (Negative)
[2025-06-26 15:19] LABS: Anion Gap 11 (12-20); Blood Urea Nitrogen 11 mg/dL (9-16); Calcium 9.2 mg/dL (8.4-10.2); Carbon Dioxide 26 mmol/L (22-29); Chloride 100 mmol/L (96-108); Creatinine Clr Calc Pharmacy 121.1; Estimated Glomerular Filt Rate > 60; Potassium 4.2 mmol/L (3.3-5.1); Sodium 133 mmol/L (135-145)
[2025-06-26 15:28] LABS: Troponin-I High Sensitivity < 2.7 ng/L (<3.5-35.0)
--- OUTSIDE RECORDS SUMMARY | 2025-06-26 16:16 | XMS_ITS | Encounter Summary ---
Author Organization [employer] Address [address] [facility] 7t [place] [address] Care Team Providers Care Fund Accountant Name Role Phone Cat Peck JEET Primary Care Provider [phone] Encounter Details Date Type Department Care Team ([facility] st Contact Info) Description 06/26/2025 Telephone [facility] [address] [place] [address] Kinza Thompson RN Social History Tobacco Use Types Packs/Day Years [...] with others, in a hotel, in a longterm, living outside on the street, on a [...] AM EDT documented as of this encounter Miscellaneous Notes * Telephone Encounter - Kinza Thompson RN - 06/26/2025 3:15 PM EST Per provider request, called EMS at 1:56pm for pt to be transported [place] [facility]. Gave expect to EMS. documented in this encounter Plan of Treatment Not on file documented as of this encounter Visit Diagnoses Not on filedocumented in this encounter Additional Health Concerns Assessment Noted Time PHQ-9 Depression Total Score: 17 024 10:49 AM EST documented as of this encounter Care Teams Fund Accountant Relationship Specialty Start Date End Date Cat Peck FNP [address] [place] [phone] PCP - General Family Medicine 04/19/22 documented as of this encounter
--- OUTSIDE RECORDS SUMMARY | 2025-06-26 16:16 | XMS_ITS | Encounter Summary ---
Author Organization [employer] Address [address] [place] [address] 7t [place] [address] Care Team Providers Care Director Biology Name Role Phone Cat Peck Primary Care Provider [phone] Елена Melendez LM Unavailable [phone] Lilibeth Grove Unavailable Encounter Details Date Type Department Care Team (Late st Contact Info) Description 09/25/2022 Orders Only [facility] [address] [place] [address] Jessica Bravo LPN Social History Tobacco Use Types Packs/Day Years Used Date Smoking Tobacco: Never Assessed Sex and Gender Information Value Date Recorded Sex Assigned at Male 06/19/2022 10:17 AM EDT Legal Sex Male 10:17 AM EDT Gender Identity Male 06/19/2022 10:17 AM EDT Sexual Orientation Straight 06/19/2022 10 :17 AM EDT documented as of this encounter Plan of Treatment Not on file documented as of this encounter Visit Diagnoses Not on filedocumented in this encounter Care Teams Director Biology Relationship Specialty Start Date End Date Cat Peck FNP [address] [place] [phone] PCP - General Family Medicine 04/19/22 Елена Melendez, [facility] Feed Handler Behavioral Health 05/04/25 06/08/25 Lilibeth Grove Feed Handler Behavioral Health 05/04/25 06/15/25 documented as of this encounter
--- OUTSIDE RECORDS SUMMARY | 2025-06-26 16:16 | XMS_ITS | Encounter Summary ---
Author Organization [employer] Address [address] [place] [address] [address] [place] [address] Care Team Providers Care Solution Engineer Name Role Phone Cat Peck Primary Care Provider [phone] Елена Melendez [facility] Unavailable [phone] Lilibeth [place] Unavailable Reason for Visit * Reason Onset Date Comments Appointment Request 03/13/2023 Encounter Details Date Type Department Care Team ([facility] st Contact Info) Description 03/13/2023 Telephone [facility] [address] [place] [address] Cat Peck FNP [address] [place] [address] Appointment Request Social History Tobacco Use Types Packs/Day Years Used Date Smoking Tobacco: Every Day Cigarettes Smokeless Tobacco: Never Comments:Vape Alcohol Use Standard Drinks/Week Comments Never 0 (1 standard drink = 0.6 oz pur e alcohol) Sex and Gender Information Value Date Recorded Sex Assigned at Male 06/19/2022 10:17 AM EDT Legal Sex Male 10:17 AM EDT Gender Identity Male 06/19/2022 10:17 AM EDT Sexual Orientation Straight 06/19/2022 10 :17 AM EDT documented as of this encounter Miscellaneous Notes * Telephone Encounter - Rupali Merino - 03/13/2023 10:11 AM EDT Tc from pt requesting a f/u appointment in regards to diabetes. Purchasing Officer did not see any availability. Please contact pt at [phone] documented in this encounter Plan of Treatment Not on file documented as of this encounter Visit Diagnoses Not on filedocumented in this encounter Care Teams Solution Engineer Relationship Specialty Start Date End Date Cat Peck FNP [address] [place] [phone] PCP - General Family Medicine 04/19/22 Елена Melendez [facility] Hospice Care Transitions Coordinator Behavioral Health 05/04/25 06/08/25 Lilib[facility] [place] [facility]ospice Care Transitions Coordinator Behavioral Health 05/04/25 06/15/25 documented as of this encounter
--- OUTSIDE RECORDS SUMMARY | 2025-06-26 16:17 | XMS_ITS | Encounter Summary ---
Author Organization [employer] Address [address] [place] [address] 7 [place] [address] Care Team Providers Care Retail Gift Card Merchandising Name Role Phone Cat Peck JEET Primary Care Provider [phone] Encounter Details Date Type Department Care Team ([facility] Contact Info) Description 06/26/2025 Orders Only GENERIC EXTERNAL DATA DEPARTMENT Provider, Generic External Data Social History Tobacco Use Types Packs/Day Years [...] with others, in a hotel, in a mcc, living outside on the street, on a [...] on file documented as of this encounter Procedures Procedure Name Priority Date/Time Associated Diagnosis Comments XR CHEST 2 VIEWS Routine 06/26/2025 3:00 PM EST INFLUENZA A B2 ID NOW (Route4Me) Routine 06/26/2025 2:57 PM EST COVID-19 ID NOW (BAH) Routine 06/26/2025 2:57 PM EST HIGH SENSITIVITY TROPONIN I Routine 06/26/2025 2:51 PM EST CBC WITH AUTO DIFFERENTIAL Routine 06/26/2025 2:51 PM EST BASIC METABOLIC PANEL Routine 06/26/2025 2:51 PM EST documented in this encounter Results * XR Chest 2 Views (06/26/2025 3:00 PM EST) Anatomical Region Laterality Modality Chest Radiographic Shavonne ging 06/26/2025 3:00 PM EST Narrative 06/26/2025 3:10 PM EST [address] [address] XRay Report Signed Patient: Maya Martinez MR#: [id number] : 1975 Acct:[id number] Age/Sex: 49 / M ADM Date: 06/26/25 Loc: .ED Attending Dr: Ordering Physician: Generic ED Physician Date of Service: 06/26/25 Procedure(s): XR chest 2V Accession Number(s): [id number] cc: Generic ED Physician; [facility] Reason for Exam: SOB/CP EXAMINATION: XR CHEST CLINICAL INFORMATION: SOB/CP COMPARISON: None available. TECHNIQUE: 2 views of the chest were obtained. FINDINGS: No significant abnormality is noted involving the heart, lungs, mediastinum, bony thorax or soft tissues. XR/XR chest 2V IMPRESSION: Unremarkable examination. Electronically signed by: Cande Taylor MD 06/26/2025 03:07 PM EST RP Dictated By: Cande Taylor MD Signed By: <Electronically signed by Cande Taylor MD in OV> 06/26/25 1507 DD/ 1500 TD/TT: 06/26/25 1504 Rn Endoscopy: ASHWIN Procedure Note Donotuseinterpreter, Image - 06/26/2025 [place] [address] XRay Report Signed Patient: Maya MartinezMR#: [id number] : 1975Acct:[id number] Age/Sex: 49 / MADM Date: 06/26/25 Loc: .ED Attending Dr: Ordering Physician: Generic ED Physician Date of Service: 06/26/25 Procedure(s): XR chest 2V Accession Number(s): [id number] cc: Generic ED Physician; [facility] Reason for Exam: SOB/CP EXAMINATION: XR CHEST CLINICAL INFORMATION: SOB/CP COMPARISON: None available. TECHNIQUE: 2 views of the chest were obtained. FINDINGS: No significant abnormality is noted involving the heart, lungs, mediastinum, bony thorax or soft tissues. XR/XR chest 2V IMPRESSION: Unremarkable examination. Electronically signed by: Cande Taylor MD 06/26/2025 03:07 PM EST RP Dictated By: Cande Taylor MD Signed By: <Electronically signed by Cande Taylor MD in OV> 06/26/25 1507 DD/ 1500 TD/TT: 06/26/25 1504 Rn Endoscopy: ASH[facility] External Provider IMG XR PROCEDURES Final Result * Influenza A B2 ID NOW (Bah) (06/26/2025 2:57 PM EST) IDNOW SERIAL# [id number] [facility] Influenza A Negative Negative [facility] Influenza B2 Negative Negative [facility] Influenza A B2 Note See Note [facility] Comment:The Bah ID NOW In fluenza A B2 test is used for thequalitative detection of influenza A and B from patientswith signs and symptoms of respiratory infection.Negative results do not preclude influenza virus infectionand should not be used as the sole basis for diagnosis,treatment or other patient management decisions.There is a risk of false negative results due to thepresence of variants in the viral targets of the assay, lowlevels of virus in the specimen and co- infection withRespiratory Syncytial Virus. 06/26/2025 2:57 PM EST 06/26/2025 2:59 PM EST Generic External Data Provider LAB MICROBIOLOGY - GENERAL ORDERABLES Final Result [facility] [address] [place] [phone] * COVID-19 ID NOW (BAH) (06/26/2025 2:57 PM EST) IDNOW SERIAL# [id number] [facility] COVID-19 TEST Negative Negative [facility] COVID-19 NOTE See Note [facility] Comment: Results are for the identification of SARS-CoV2 RNA. TheSARS-CoV2 RNA is generally detectable in respiratory samplesduring the acute phase of infection. Positive results areindicative of the presence of SARS-CoV-2 RNA; clinicalcorrelation with patient history and other diagnosticinformation is necessary to determine patient infectionstatus. Positive results do not rule out bacterial infectionor co- infection with other viruses.Testing facilities within the [place] and [facility] are required to report all positive results tothe appropriate public health authorities.Negative results should be treated as presumptive and, ifinconsistent with clinical signs and symptoms or necessaryfor patient management, should be tested with differentauthorized or cleared molecular tests. Negative results donot preclude SARS-CoV2 RNA infection and should not be usedas the sole basis for patient management decisions. Negativeresults should be considered in the context of a patient'srecent exposures, history and the presence of clinical signsand symptoms consistent with COVID-19.This test has been authorized by the FDA under an EmergencyUse Authorization (EUA) for use by authorized laboratories.Testing performed on the [employer] ID NOW utilizing NAAT. 06/26/2025 2:57 PM EST 06/26/2025 2:59 PM EST Generic External Data Provider LAB MOLECULAR VON GNOSTICS ORDERABLES Final Result Performing Organization Address [facility] Co de Phone Number [facility] [address] [place] [phone] * High Sensitivity Troponin I (06/26/2025 2:51 PM EST) [facility] TROPONIN I HIGH SENSITIVITY <2.7 <3.5 - 35.0 ng/L [facility] Comment:The Bah high sens itivity Troponin-I results should beused in conjunction with other diagnostic information suchas ECG, clinical observations and information, and patientsymptoms to aid in the diagnosis of NM. 06/26/2025 2:51 PM EST 06/26/2025 2:56 PM EST Generic External Data Provider LAB BLOOD ORDERAB LES Final Result Performing Organization Address [facility] Co de Phone Number [facility] [address] [place] [phone] * (ABNORMAL) Basic Metabolic Panel (06/26/2025 2:51 PM EST) Sodium 133(L) 135 - 145 mmol/L [facility] Potassium 4.2 3.3 - 5.1 mmol/L [facility] Chloride 100 96 - 108 mmol/L [facility] Carbon Dioxide 26 22 - 29 mmol/L [facility] Anion Gap 11(L) 12 - 20 [facility] Urea Nitrogen (BUN) 11 9 - 16 mg/dL [facility] Creatinine, Serum 0.88 0.5 - 1.4 mg/dL [facility] Creatinine Clr Calc Pharmacy 121.1 [facility] Comment:eGFR (calculated fro m the MDRD study equation) and eCrCl(calculated from the Cockcroft-Gault equation) are based ondifferent parameters and may not yield comparable results.If eCrCl result is absurd, please check patient'sheight/weight. Estimated Glomerular Filt Rate >60 [facility] Comment:Chronic Kidney Disea se: Estimated GFR < 60 mL/min/1.35q0Xtfchv Kidney Disease: Estimated GFR < 15 mL/min/1.73m2 Glucose 280(H) 60 - 115 mg/dL [facility] Calcium 9.2 8.4 - 10.2 mg/dL [facility] 06/26/2025 2:51 PM EST 06/26/2025 2:56 PM EST us Generic External Data Provider LAB BLOOD ORDERAB LES Final Result [facility] [address] [place] [phone] * (ABNORMAL) CBC auto differential (06/26/2025 2:51 PM EST) White Blood Count 9.8 4.8 - 10.8 X10*3/uL [facility] Red Blood Count 4.23(L) 4.60 - 5.80 X10*6/uL [facility] Hemoglobin 12.1(L) 14.0 - 18.0 g/dl [facility] Hematocrit 35.7(L) 42.0 - 52.0 % [facility] Mean Corpuscular Volume 84.4 80.0 - 98.0 fL [facility] Mean Corpuscular Hemoglobin 28.6 27.0 - 33.0 pg [facility] Mean Corpuscular HGB Conc 33.9 31.0 - 36.0 g/dl [facility] Red Cell Distribution Width 12.4 11.0 - 16.0 % [facility] Platelet Count 262 160 - 400 X10*3/uL [facility] Mean Platelet Volume 8.9(L) 9.4 - 12.4 fL [facility] Neutrophils Percent Auto 71.1 45 - 73 % [facility] Imm Gran Pct Auto 0.3 0.0 - 0.4 % [facility] Lymphocytes Percent Auto 18.6(L) 20 - 40 % [facility] Monocytes Percent Auto 7.7 2 - 11 % [facility] Eosinophils Percent Auto 2.1 0 - 4 % [facility] Basophils Percent Auto 0.2 0 - 2 % [facility] NRBC Pct Auto 0.0 0.0 - 0.2 /100WBC [facility] Neutrophils Absolute Auto 6.9 2.0 - 8.3 x10*3/uL [facility] Imm Gran Abs Auto 0.03 0.00 - 0.03 X10*3/uL [facility] Lymphocytes Absolute Auto 1.8 1.2 - 4.9 X10*3/uL [facility] Monocytes Absolute Auto 0.8 0.1 - 1.2 X10*3/uL [facility] Eosinophils Absolute Auto 0.2 0.0 - 0.4 X10*3/uL [facility] Basophils Absolute Auto 0.0 0.0 - 0.2 X10*3/uL [facility] NRBC Abs Auto 0.000 0.0 - 0.012 X10*3/uL [facility] 06/26/2025 2:51 PM EST 06/26/2025 2:56 PM EST us Generic External Data Provider LAB BLOOD ORDERAB LES Final Result [facility] [address] [place] [address] [phone] documented in this encounter Visit Diagnoses Not on filedocumented in this encounter Additional Health Concerns Assessment Noted Time PHQ-9 Depression Total Score: 17 024 10:49 AM EST documented as of this encounter Care Teams Retail Gift Card Merchandising Relationship Specialty Start Date End Date aCt Peck FNP [address] [place] [address] PCP - General Family Medicine 04/19/22 documented as of this encounter
--- OUTSIDE RECORDS SUMMARY | 2025-06-26 16:17 | XMS_ITS | Clinical Summary ---
Author Organization [facility] Address [address] [place] [address] Care Team Providers Care Coal Briquette Machine Operator Name Role Phone Pcp, No Primary Care Provider Unavailabl e Allergies No known active allergies Medications * This document contains information received from the source organization and may not represent a complete record from that organization. PARoxetine (PAXIL) 30 MG tabletIndications :Depression with suicidal ideation Take 1 tablet (30 mg total) by mouth daily. Do not start before January 26, 2021. 30 tablet 1 Active gabapentin (NEURONTIN) 300 MG capsuleIndication s:Diabetes mellitus without complication (HCC),Depression with suicidal ideation Take 2 capsules (600 mg total) by mouth 3 (three) times a day. 180 capsule 1 Active metFORMIN (GLUCOPHAGE) 500 MG tabletIndications :Diabetes mellitus without complication (HCC) Take 1 tablet (500 mg total) by mouth 2 (two) times a day with breakfast and dinner. 60 tablet 1 Active QUEtiapine (SEROquel) 400 MG tabletIndications :Depression with suicidal ideation Take 1 tablet (400 mg total) by mouth nightly. 30 tablet 1 Active traZODone (DESYREL) 100 MG tabletIndications :Depression with suicidal ideation Take 1 tablet (100 mg total) by mouth nightly as needed for sleep (may repeat x1 after one hour). 30 tablet 1 Active Active Problems Problem Noted Date Diagnosed Date My Safety Plan 01/24/2021 Overview (01/24/2021): Images from the original note were not included. [facility] [phone] X [phone] [facility] [address] [facility] SAFETY PLAN The one thing that is most important to client and worth living for is: My sobriety 1. Warning signs (thoughts, images, mood, situation, behaviors) that a crisis may be developing: Sleeping less Negative mood 2. Coping strategies - things client can do to take mind off problems without contacting another person (relaxation technique, physical activity): Meditation Exercise Practicing my frankie 3. People and social settings that provide distraction: Name: [employer] Name: Telephone: Name: Telephone: Place: [facility] 4. People whom client can ask for help: Name: [facility] Name: Telephone: Name: Telephone: 5. Professionals or agencies the client can contact during a crisis: Name: [facility] Name: Telephone: Name: Telephone: Additional resources: [place] inf[address], Suicide Prevention Lifeline 5-373-449-GHOK (8396), Text Hello to [phone] 6. Making the environment safe/access to firearms: No access to firearms Depression with suicidal ideation 01/14/2021 Social History Tobacco Use Types Packs/Day Years Used Date Smoking Tobacco: Never Smokeless Tobacco: Never Alcohol Use Standard Drinks/Week Comments Not Currently 0 (1 standard drink = 0.6 oz pur e alcohol) Sex and Gender Information Value Date Recorded Sex Assigned at Male 01/14/2021 1:09 PM EDT Legal Sex Male 11:51 AM EDT Gender Identity Male 01/14/2021 1:09 PM EDT Sexual Orientation Heterosexual (straight) 01/14 1:09 PM EDT Last Filed Vital Signs Vital Sign Reading Time Taken Comments Blood Pressure 115/74 01/25/2021 9:00 AM EDT Pulse 91 01/25/2021 9:00 AM EDT Temperature 36.8 C (98.2 F) 01/25/2021 9:00 AM EDT Respiratory Rate 18 01/25/2021 9:00 AM EDT Oxygen Saturation 98% 01/25/2021 9:00 AM EDT Inhaled Oxygen Concentration - - Weight 95.3 kg (210 lb 1.6 oz) 01/14/2021 1:01 P M EDT Height 171.5 cm (5' 7.52 ) 01/14/2021 1:01 PM ED T Body Mass Index 32.4 01/14/2021 1:01 PM EDT Plan of Treatment Health Maintenance Due Date Last Done Comments Hepatitis C Virus Screening 1975 HIV Screening 1987 DTaP/Tdap/Td Vaccines (1 - Tdap) 1993 Hepatitis B Vaccines (1 of 3 - 19+ 3-dose series) 08/20 Colonoscopy 2019 Pneumococcal Vaccines 50+ (1 of 1 - PCV) 2024 Zoster (Shingles) Vaccine (1 of 2) 2024 Influenza Vaccine 03/20/2025 COVID-19 Vaccine (1 - season) 2025 RSV Vaccine 50 years and old er and Patients (1 - 1-dose 75+ series) 2049 Insurance MEDICAID OUT OF STATE [facility] Advance Directives * Full Code (Latest Code Status on File) Date Activated Date Inactivated Comments 01/14/2021 2:39 AM Question Answer Comments Decision Thoroughly Discussed with: Unable to Di scuss Care Teams Coal Briquette Machine Operator Relationship Specialty Start Date End Date Pcp, No [address] [place] [address] PCP - General 01/13/21
--- OUTSIDE RECORDS SUMMARY | 2025-06-26 16:17 | XMS_ITS | Encounter Summary ---
Author Organization [employer] Address [address] [facility] [address] [place] [address] Care Team Providers Care Corporate Development Associate Name Role Phone Cat Peck SUPERVISOR HOME RESTORATION SERVICE Primary Care Provider Encounter Details Date Type Department Care Team (Latest Contact Info) Description 06/26/2025 Travel Social History Tobacco Use Types Packs/Day Years [...] documented as of this encounter Care Teams Corporate Development Associate Relationship Specialty Start Date End Date Cat Peck FNP [address] [place] [phone] PCP - General Family Medicine 04/19/22 documented as of this encounter
--- OUTSIDE RECORDS SUMMARY | 2025-06-26 16:17 | XMS_ITS | Clinical Summary ---
Author Organization [employer] Address [address] [place] [address] 7t [place] [address] Care Team Providers Care Marinator Name Role Phone Cat Peck WAFER FAB TECHNICIAN Primary Care Provider [phone] Allergies No known active allergies Medications * This document contains information received from the source organization and may not represent a complete record from that organization. Blood Pressure Monitor kit Use to monitor blood pressure daily and when symptomatic 1 kit 11/14/19 23 Active Alcohol Swabs pads Use to clean skin prior to checking blood glucose or inserting insulin 100 each 11 11/16/19 23 Active Blood Glucose Monitoring Suppl (FreeStyle Lite) w/Device kit 1 each 4 times daily. Use to check blood sugar 3-4 times per day. 1 kit 11/16/19 23 Active Continuous Blood Gluc Sensor (FreeStyle Dodie 2 Sensor) misc Apply to skin as directed on package insert to monitor blood sugar levels. 6 each 3 11/16/19 23 Active Continuous Blood Gluc Accounts Receivable Representative (FreeStyle Dodie 2 [place]) device Use as directed on package insert to monitor blood sugar levels. 1 each 11/16/19 23 Active Melatonin 3 MG capsuleIndicatio ns:Sleep difficulties Take 1-2 capsules by mouth if needed at bedtime (sleep difficulties). 90 capsule 1 08/22/19 24 Active insulin glargine (Lantus SoloStar) 100 UNIT/ML penIndications:T ype 2 diabetes mellitus without complication, with long-term current use of insulin (HCC) INJECT 30 UNITS AT BEDTIMEINJECT 30 UNITS AT BEDTIME 15 mL 3 06/19/20 24 Active gabapentin (Neurontin) 300 MG capsule Take 1 capsule (300 mg) by mouth at bedtime. 90 capsule 06/19/20 24 Active lisinopril 10 MG tabletIndication s:Essential hypertension TAKE 1 TABLET BY MOUTH EVERY DAY IN THE MORNING 90 tablet 1 11/29/19 25 Active insulin lispro (HumaLOG) 100 UNIT/ML injection INJECT INSULIN SUBCUTANEOUSLY BEFORE MEALS PER SLIDING SCALE: BLOOD GLUCOSE OF 111-150: 2 UNITS, 151-200: 4 UNITS, 201-250: 7 UNITS, 251-300: 10 UNITS, 301-350: 14 UNITS, >350: 18 UNITS 15 mL 5 12/12/19 25 Active insulin pen needle (BD Pen Needle Mary 2nd Gen) 32G x 4 mm miscIndications: Type 2 diabetes mellitus treated with insulin (HCC) USE 4 TIMES A DAY WITH INSULIN INSTRUCTED 100 each 12/17/19 25 Active FREESTYLE LITE test strip CHECK BY FINGERSTICK ROUTE 3-4 TIMES EVERY DAY 100 each 01/23/20 25 Active metFORMIN XR (Glucophage-XR) 500 MG 24 hr tabletIndication s:Type 2 diabetes mellitus treated with insulin (HCC) TAKE 2 TABLETS BY MOUTH TWICE A DAY WITH MEALS 360 tablet 02/25/20 25 Active Active Problems Problem Noted Date Diagnosed Date Healthcare maintenance 09/12/2023 Overview (09/12/2023): Colonoscopy: due Eye Care: due Deafness in right ear 07/06/2021 Essential hypertension 07/06/2021 Overview (08/22/2023): -Continues with current med regimen: Lisinopril 10mg daily Assessment & Plan (08/23/2023 11:14 AM EST): -BP WNL in office, pt denies any dizziness, DORAN, chest pain, SOB, edema -Encouraged to log home BP readings for next appt -Encouraged lifestyle interventions such as low salt diet and routine physical activity -ED precautions reviewed Assessment & Plan (11/15/2022 9:00 AM EDT): -BP WNL in office, pt denies any dizziness, DORAN, chest pain, SOB, edema -BP kit sent to [facility] pharmacy to monitor home readings -Encouraged lifestyle interventions such as low salt diet and routine physical activity -ED precautions reviewed Depression with suicidal ideation 01/14/2021 Opioid abuse 10/22/2020 Type 2 diabetes mellitus 10/22/2020 Assessment & Plan (08/23/2023 11:19 AM EST): Lab Results Component Value Date HGBA1C 9.7 (A) 08/22/2023 HGBA1C 11.6 (A) 11/13/2022 A1c: (Target </= 7.0) :above goal, but with noted improvement Microalbumin/Cr:Alb: discuss at f/u Lipids: discuss at f/u Eye exam: discuss at f/u Dental: discuss at f/u PNA (PPSV, then PCV 13): not on file TDap/Td: not on file Foot exam/peripheral pulses: due at next in person appt JATIN/ARB: yes, lisinopril Statin: pt due for labs Continues with the following med regimen; -Metformin 1000mg BID -Lantus 30 units subcutaneous nightly -Lispro 2-18 units per SS subcutaneous before meal -CGM: check with pharmacy to see is still active. If not, plan to send in another order order/PA. Assessment & Plan (11/15/2022 9:11 AM EDT): Lab Results Component Value Date HGBA1C 11.6 (A) 11/13/2022 A1c: (Target </= 7.0): previous on 11/28/21: 13.8% Microalbumin/Cr:Alb: discuss at f/u Lipids: discuss at f/u Eye exam: discuss at f/u Dental: discuss at f/u PNA (PPSV, then PCV 13): not on file TDap/Td: not on file Foot exam/peripheral pulses: due at next in person appt JATIN/ARB: yes, lisinopril Statin: pt due for labs Continues with the following med regimen; -Metformin 1000mg BID -Lantus 30 units subcutaneous nightly -Lispro 5-12 units subcutaneous before meal -Restarted on gabapentin 300mg at bedtime for neuropathy. Reviewed med safety and SE. -CGM sent to [facility] pharmacy to initiate PA -Diabetes monitoring supplies (finger stick) resent to [facility] pharmacy. Plan to monitor home levels and follow up in 2 weeks. Sooner as needed. Encounters * This document contains information received from the source organization and may not represent a complete record from that organization. Date Type Department Care Team Description 06/26/2025 2:00 PM EST Office Visit [facility] [address] [place] [phone] 06/26/2025 Telephone [facility] [address] [address] Kinza Thompson RN 06/26/2025 Orders Only GENERIC EXTERNAL DATA DEPARTMENT Provider, Generic External Data 06/26/2025 Travel 06/08/2025 [facility] [address] [place] [address] Lilibeth Grove 06/08/2025 Patient Outreach [facility] Department [address] [place] [address] Елена Melendez, DOV 06/05/2025 Telephone [facility] MEDICINE [address] [place] [phone] Cat Peck FNP Med Refill 06/03/2025 Patient Outreach [facility] [address] [place] [address] GroveLilibeth stevens 06/03/2025 Patient Outreach [facility] Department [address] [place] [address] Елена Melendez, DOV 05/27/2025 Patient Outreach [facility] Department [address] [place] [address] GroveLilibeth stevens 05/27/2025 [facility] Outreach [facility] Department [address] [place] [address] Елена Melendez, LMANMOL 05/27/2025 Patient Outreach [facility] Department [address] [place] [address] GroveLilibeth stevens 05/25/2025 [facility] Outreach [facility] Department [address] [place] [address] Melendez, Елена, LMHC 05/25/2025 Patient Outreach [facility] Department [address] [place] [address] GroveMigdaliazy 05/22/2025 Patient Outreach [facility] Department [address] [place] [address] Melendez, Елена, LMHC 05/22/2025 Patient Outreach [facility] Department [address] [place] [address] Melendez, Елена, LMHC 05/19/2025 Patient Outreach [facility] Department [address] [place] [address] Melendez, Елена, LMHC 05/15/2025 Patient Outreach [facility] Department [address] [place] [address] Melendez, Елена, LMHC 05/15/2025 Patient Outreach [facility] Department [address] [place] [address] Melendez, Елена, LMHC 05/14/2025 Patient Outreach [facility] Department [address] [place] [address] Grove, Lilibeth 05/14/2025 [facility] Outreach [facility] Department [address] [place] [address] Grove, Lilibeth 05/14/2025 Patient Outreach [facility] Department [address] [place] [address] Grove, Lilibeth 05/14/2025 Patient Outreach [facility] Department [address] [place] [address] Melendez, Елена, LMHC 05/14/2025 Patient Outreach [facility] Department [address] [place] [address] Melendez, Елена, LMHC 05/13/2025 Patient Outreach [facility] Department [address] [phone] Melendez, Елена, LMHC 05/12/2025 Patient Outreach [facility] Department [address] [place] [address] Melendez, Елена, LMHC 05/12/2025 Patient Outreach [facility] Department [address] [place] [address] Melendez, Елена, LMHC 05/12/2025 Patient Outreach [facility] Department [address] [place] [address] GroveMigdalia fletcherzy 05/12/2025 Patient Outreach [facility] Department [address] [place] [address] GroveMigdalia stevenszy 05/11/[address] [address] Cat Peck FNP No Show 05/11/2025 Patient Outreach [facility] [address] [place] [address] Melendez, Елена, [facility] 05/11/2025 Patient Outreach [facility] Department [address] [place] [address] GroveLilibeth stevens 05/08/2025 Telephone [facility] [address] [place] [address] Cat Peck FNP Chart Prep 05/06/2025 Patient Outreach [facility] Department [address] [place] [address] Melendez, Елена, LMHC 05/05/2025 Patient Outreach [facility] Department [address] [place] [address] Melendez, Елена, LMHC 05/05/2025 Patient Outreach [facility] Department [address] [place] [address] GroveMigdalia stevenszy 05/04/2025 Patient Outreach [facility] [address] [place] [address] Cat Peck FNP Care Coordination ( JOE Program) 05/04/2025 Patient Outreach [facility] (C3) Department [address] [phone] Lilibeth Grove 05/04/2025 Patient Outreach [facility] Care [facility] (C3) Department [address] [place] [phone] Елена Melendez LMHC 05/01/2025 Telephone [facility] PEDS [address] [place], [place] [phone] Cat Peck FNP Call Back Request; Medication Question from Last 3 Months Immunizations Immunization Administration Dates Next Due Influenza, IIV3, injectable 08/04/2014 Family History Medical History Relation Name Comments Diabetes Mother Hypertension Mother Relation Name Status Comments Mother Social History Tobacco Use Types Packs/Day Years Used Date Smoking Tobacco: Former Cigarettes Passive Smoke Exposure: Past Smokeless Tobacco: Never Tobacco Cessation:Counseling Given: Not Answered Comments:Vape Alcohol Use Standard Drinks/Week Comments Never [...] with others, in a hotel, in a half-way, living outside on the street, on a [...] Orientation Straight 06/19/2022 10 :17 AM EDT Last Filed Vital Signs Vital Sign [...] Mass Index 36.43 06/26/2025 1:54 PM EST Plan of Treatment Health Maintenance Due Date Last Done Comments CT Colonography 1974 Colonoscopy 1974 Colorectal Cancer Screening 1974 FIT DNA/Cologuard 1974 FIT 1974 FOBT 1974 HIV Screening 1974 Lipid Panel 1974 Sigmoidoscopy 1974 Disability Screening 1974 Diabetes: Foot Exam 1984 Eye Exam 1984 Alcohol/Substance Use Screening 1986 Family Planning (PISQ) 1989 Hepatitis C Screening 1992 DTaP/Tdap/Td Vaccines (1 - Tdap) 1993 Diabetes: Urine Protein Screening 1993 Hepatitis B Vaccines (1 of 3 - 19+ 3-dose series) 1993 Pneumococcal Vaccine: 50+ Years (1 of 2 - PCV) 1993 Diabetes: Hemoglobin A1C 11/21/2023 024, 11/13/2022 Depression Monitoring 02/20/2024 08/22/2023 , 08/22/2023 Tobacco Screening 08/22/2024 08/22/2023 SDOH Screening 09/04/2024 09/04/2023 Zoster Vaccines (1 of 2) 2024 COVID-19 Vaccine (1 - 2023-2 5 season) 2025 Influenza Vaccine (#1) 2025 08/04/2014 RSV Patients and Patients Aged 60 years or older (1 - 1-dose 75+ series) 2049 HIB Vaccines Aged Out No longer eligi ble based on patient's age to complete this topic HPV Vaccines Aged Out No longer eligi ble based on patient's age to complete this topic Hepatitis A Vaccines Aged Out No long er eligible based on patient's age to complete this topic IPV Vaccines Aged Out No longer eligi ble based on patient's age to complete this topic Meningococcal B Vaccine Aged Out No l onger eligible based on patient's age to complete this topic Meningococcal Vaccine Aged Out No basilio jose david eligible based on patient's age to complete this topic RSV under 20 months Aged Out No longe r eligible based on patient's age to complete this topic Rotavirus Vaccines Aged Out No longer eligible based on patient's age to complete this topic Procedures Procedure Name Priority Date/Time Associated Diagnosis Comments XR CHEST 2 VIEWS Routine 06/26/2025 3:00 PM EST COVID-19 ID NOW (BAH) Routine 06/26/2025 2:57 PM EST INFLUENZA A B2 ID NOW (BAH) Routine 06/26/2025 2:57 PM EST HIGH SENSITIVITY TROPONIN I Routine 06/26/2025 2:51 PM EST BASIC METABOLIC PANEL Routine 06/26/2025 2:51 PM EST CBC WITH AUTO DIFFERENTIAL Routine 06/26/2025 2:51 PM EST POCT GLYCATED HEMOGLOBIN, TOTAL Routine 08/22/2023 10:51 AM EST Type 2 diabetes mellitus without complication, with long-term current use of insulin ([facility]) from Last 3 Months or Most Recently Relevant to Health Maintenance Results * XR Chest 2 Views (06/26/2025 3:00 PM EST) Anatomical Region Laterality Modality Chest Radiographic Shavonne ging 06/26/2025 3:00 PM EST Narrative 06/26/2025 3:10 PM EST [address] [address] XRay Report Signed Patient: Maya Martinez MR#: [id number] : 1975 Acct:[id number] Age/Sex: 49 / M ADM Date: 06/26/25 Loc: .ED Attending Dr: Ordering Physician: Generic ED Physician Date of Service: 06/26/25 Procedure(s): XR chest 2V Accession Number(s): [id number] cc: [facility] ED Physician; [facility] Reason for Exam: SOB/CP EXAMINATION: XR [...] 06/26/25 1507 DD/ 1500 TD/TT: 06/26/25 1504 [facility] [employer] [facility]anner: ASHWIN Procedure Note Donotuseinterpreter, Image - 06/26/[address] [address] XRay Report Signed Patient: Maya MartinezMR#: [id number] : 1975Acct:[id number] Age/Sex: 49 / MADM Date: 06/26/25 Loc: HO.ED Attending Dr: Ordering Physician: Generic ED Physician Date of Service: 06/26/25 Procedure(s): XR chest 2V Accession Number(s): [id number] cc: Generic ED Physician; [facility] Reason for Exam: SOB/CP EXAMINATION: XR CHEST CLINICAL INFORMATION: SOB/CP COMPARISON: None available. TECHNIQUE: 2 views of the chest were obtained. FINDINGS: No significant abnormality is noted involving the heart, lungs, mediastinum, bony thorax or soft tissues. XR/XR chest 2V IMPRESSION: Unremarkable examination. Electronically signed by: Cande Taylor MD 06/26/2025 03:07 PM EST Dictated By: Cande Taylor MD Signed By: <Electronically signed by Cande Taylor MD in OV> 06/26/25 1507 DD/ 1500 TD/TT: 06/26/25 1504 [employer] [facility]anner: ASHWIN [facility] External Provider IMG XR PROCEDURES Final Result * Influenza A B2 ID NOW (Bah) (06/26/2025 2:57 PM EST) IDNOW SERIAL# [id number] [facility] Influenza A Negative Negative [facility] Influenza B2 Negative Negative [facility] Influenza A B2 Note See Note [facility] Comment:The Bah ID NOW In [...] 2:57 PM EST 06/26/2025 2:59 PM EST us Generic External Data Provider LAB MICROBIOLOGY - GENERAL ORDERABLES Final Result Performing Organization Address City/[facility]/ZIP Co de Phone Number [facility] [address] [place] [phone] * COVID-19 ID NOW (BAH) (06/26/2025 2:57 PM EST) IDNOW SERIAL# [id number] [facility] COVID-19 TEST Negative Negative [facility] COVID-19 NOTE See Note [facility] Comment: Results are for the identification of SARS-CoV2 RNA. TheSARS-CoV2 RNA is generally detectable in respiratory samplesduring the acute phase of infection. Positive results areindicative of the presence of SARS-CoV-2 RNA; clinicalcorrelation with patient history and other diagnosticinformation is necessary to determine patient infectionstatus. Positive results do not rule out bacterial infectionor co- infection with other viruses.Testing facilities within the [facility] and [facility] are required to report all positive results [...] use by authorized laboratories.Testing performed on the Bah ID NOW utilizing NAAT. 06/26/2025 2:57 PM EST 06/26/2025 2:59 PM EST us Generic External Data Provider LAB MOLECULAR VON GNOSTICS ORDERABLES Final Result Performing Organization Address City/[facility] Co de Phone Number [facility] [address] [place] [phone] * High Sensitivity Troponin I (06/26/2025 2:51 PM EST) Pathologist [facility] TROPONIN I HIGH SENSITIVITY <2.7 <3.5 - 35.0 ng/L [facility] Comment:The Bah high sens itivity Troponin-I results should beused in conjunction with other diagnostic information suchas ECG, clinical observations and information, and patientsymptoms to aid in the diagnosis of OR. 06/26/2025 2:51 PM EST 06/26/2025 2:56 PM EST us Generic External Data Provider LAB BLOOD ORDERAB LES Final Result [facility] [address] [place] [phone] * (ABNORMAL) CBC auto differential (06/26/2025 2:51 PM EST) Pathologist [facility] White Blood Count 9.8 4.8 - 10.8 X10*3/uL [facility] Red Blood Count 4.23(L) 4.60 - 5.80 X10*6/uL [facility] Hemoglobin 12.1(L) 14.0 - 18.0 g/dl [facility] Hematocrit 35.7(L) 42.0 - 52.0 % [facility] Mean Corpuscular Volume 84.4 80.0 - 98.0 fL [facility] Mean Corpuscular Hemoglobin 28.6 27.0 - 33.0 pg [facility] Mean Corpuscular HGB Conc 33.9 31.0 - 36.0 g/dl [facility] Red Cell Distribution Width 12.4 11.0 - 16.0 % [facility] Platelet Count 262 160 - 400 X10*3/uL [facility] Mean Platelet Volume 8.9(L) 9.4 - 12.4 fL [facility] Neutrophils Percent Auto 71.1 45 - 73 % [facility] Imm Gran Pct Auto 0.3 0.0 - 0.4 % [facility] Lymphocytes Percent Auto 18.6(L) 20 - 40 % [facility] Monocytes Percent Auto 7.7 2 - 11 % [facility] Eosinophils Percent Auto 2.1 0 - 4 % [facility] Basophils Percent Auto 0.2 0 - 2 % [facility] NRBC Pct Auto 0.0 0.0 - 0.2 /100WBC [facility] Neutrophils Absolute Auto 6.9 2.0 - 8.3 x10*3/uL [facility] Imm Gran Abs Auto 0.03 0.00 - 0.03 X10*3/uL [facility] Lymphocytes Absolute Auto 1.8 1.2 - 4.9 X10*3/uL [facility] Monocytes Absolute Auto 0.8 0.1 - 1.2 X10*3/uL [facility] Eosinophils Absolute Auto 0.2 0.0 - 0.4 X10*3/uL [facility] Basophils Absolute Auto 0.0 0.0 - 0.2 X10*3/uL [facility] NRBC Abs Auto 0.000 0.0 - 0.012 X10*3/uL [facility] 06/26/2025 2:51 PM EST 06/26/2025 2:56 PM EST us Generic External Data Provider LAB BLOOD ORDERAB LES Final Result [facility] [address] [place], [place] [phone] * (ABNORMAL) Basic Metabolic Panel (06/26/2025 2:51 PM EST) Sodium 133(L) 135 - 145 mmol/L [facility] Potassium 4.2 3.3 - 5.1 mmol/L [facility] Chloride 100 96 - 108 mmol/L [facility] Carbon Dioxide 26 22 - 29 mmol/L [facility] Anion Gap 11(L) 12 - 20 [facility] Urea Nitrogen (BUN) 11 9 - 16 mg/dL [facility] Creatinine, Serum 0.88 0.5 - 1.4 mg/dL [facility] Creatinine Clr Calc Pharmacy 121.1 [facility] Comment:eGFR (calculated fro m the MDRD study equation) and eCrCl(calculated from the Cockcroft-Gault equation) are based ondifferent parameters and may not yield comparable results.If eCrCl result is absurd, please check patient'sheight/weight. Estimated Glomerular Filt Rate >60 [facility] Comment:Chronic Kidney Disea se: Estimated GFR < 60 mL/min/1.21l5Adxekq Kidney Disease: Estimated GFR < 15 mL/min/1.73m2 Glucose 280(H) 60 - 115 mg/dL [facility] Calcium 9.2 8.4 - 10.2 mg/dL [facility] 06/26/2025 2:51 PM EST 06/26/2025 2:56 PM EST us Generic External Data Provider LAB BLOOD ORDERAB LES Final Result Performing Organization Address City/State/[facility] Co de Phone Number [facility] [address] [place] [phone] * (ABNORMAL) POCT HGB A1C (08/22/2023 10:51 AM EST) Hemoglobin A1C 9.7(A) 4.0 - 6.0 % QC Media Lot # [id number] Lot# Expiration Date Blood 08/22/2023 10:5 1 AM EST Cat MARCANO POINT OF CARE TEST ENTER/EDIT ORDERABLES Final Result from Last 3 Months or Most Recently Relevant to Health Maintenance Insurance C3 Care Teams Marinator Relationship Specialty Start Date End Date Cat Peck FNP [address] [place] [phone] PCP - General Family Medicine 04/19/22
--- OUTSIDE RECORDS SUMMARY | 2025-06-26 16:17 | XMS_ITS | Encounter Summary ---
Author Organization [employer] Address [address] [place] [address] [address] [place] [address] Care Team Providers Care Graphic Manager Name Role Phone Cat Peck Primary Care Provider [phone] Елена Melendez [facility] Unavailable [phone] Lilibeth [place] Unavailable Reason for Visit * Reason Comments Med Refill Encounter Details Date Type Department Care Team (Late st Contact Info) Description 12/12/2024 Refill [facility] [address] [place] [address] Cat Peck FNP [address] [place] [address] Type 2 diabetes mellitus treated with insulin ([facility]) Social History Tobacco Use Types Packs/Day Years [...] with others, in a hotel, in a nursing home, living outside on the street, on a beach, in a car, or in a park 09/04/[address] you li ve. Do you have problems with any of the following? None of the above 09/04/2023 Food Insecurity Answer Date Recorded Within the past 12 months, y ou worried that your food would run out before you got money to buy more: Sometimes True 2023 Within the past 12 months,th e food you bought just didn't last and you didn't have enough money to get more: Sometimes True 09/04/2023 Transportation Answer Date Recorded In the past 12 months, has l ack of transportation kept you from medical appts, meetings, work or from getting things needed for daily living? No 08/22/2023 Utilities Answer Date Recorded In the past 12 months, has t he electric, gas, oil or water company threatened to shut off services in your home? No 08/22/2023 Depression Answer Date Recorded Patient Health Questionnaire-2 Score 3 08/22/2023 Sex and Gender Information Value Date Recorded Sex Assigned at Male 06/19/2022 10:17 AM EDT Legal Sex Male 10:17 AM EDT Gender Identity Male 06/19/2022 10:17 AM EDT Sexual Orientation Straight 06/19/2022 10 :17 AM EDT documented as of this encounter Plan of Treatment Not on file documented as of this encounter Visit Diagnoses Diagnosis Type 2 diabetes mellitus treated with insulin (HCC) documented in this encounter Additional Health Concerns Assessment Noted Time PHQ-9 Depression Total Score: 17 024 10:49 AM EST documented as of this encounter Care Teams Graphic Manager Relationship Specialty Start Date End Date Cat Peck FNP [address] [place] [address] PCP - General Family Medicine 04/19/22 Елена Melendez ANMOL [facility] 05/04/25 06/08/25 Lilibeth Grove [facility] 05/04/25 06/15/25 documented as of this encounter
[2025-06-26] MEDS: Albuterol Sulfate 2.5 MG, Albuterol/Iprat 2.5/0.5MG 3 ML 3 ML INHALE (16:35)
--- NOTE | 2025-06-26 17:14 | ED_ITS ---
HPI - SOB/Dyspnea General Chief Complaint: Dyspnea Stated Complaint: sob, feeling unwell x1week ?pneumonia Time Seen by Provider: 06/26/25 15:54 Source: patient, EMS, RN notes reviewed and old records reviewed Mode of arrival: EMS History of Present Illness ED Provider: Jenny Monreal PA-C HPI Narrative: 49-year-old male with a past medical history HTN, diabetes, presenting to the ED via EMS from urgent care complaining of productive cough, SOB, and congestion worsening over the past week. Per EMS patient is satting 88% on RA, 95% on 2L O2. Reports associated chest discomfort with cough. + [facility] sick contacts [facility] jail. Denies recent travel, pedal edema, fever, chills Related Data Home Medications ?Medication ?Instructions ?Recorded ?Confirmed lisinopril 10 mg tablet 1 tab PO DAILY 11/05/2110/18 Previous Rx's ?Medication ?Instructions ?Recorded clonidine HCl 0.1 mg tablet 0.1 mg PO BID PRN anxiety #60 tabs 11/14/21 gabapentin 400 mg capsule 400 mg PO BEDTIME #30 caps 0 11/14/21 insulin glargine 100 unit/mL 30 unit (0.3 mL) subcut B EDTIME 11/14/21 subcutaneous solution (Lantus #10 mL U-100 Insulin) insulin lispro 100 unit/mL See Protocol subcut QIDACHS #10 mL 11/14/21 subcutaneous solution (Humalog U-100 Insulin) melatonin 3 mg tablet 9 mg (3 x 3 mg) PO BEDTIME P RN 11/14/21 Sleep #90 tabs metformin 1,000 mg tablet 1,000 mg PO BIDWM #60 tabs 0 11/14/21 methadone 10 mg/mL oral 55 mg (5.5 mL) PO DAILY #0 m L 11/14/21 concentrate (Methadose) nicotine 21 mg/24 hr daily 21 mg transdermal DAILY #30 ea 11/14/21 transdermal patch olanzapine 15 mg tablet 15 mg PO BEDTIME #30 tabs trazodone 50 mg tablet 50 mg PO BEDTIME PRN Insomni a #30 11/14/21 tabs Allergies Allergy/AdvReac Type Severity Reaction Status Date / Time No Known Allergies Allergy Verified 06/26/25 14:41 Review of Systems 2 Review of Systems: Yes all other systems are reviewed and are negative Constitutional: Constitutional: Reports as per [facility] Past Medical History Attestation statement: The following information was validated with the patient. Source: old records reviewed Medical History Essential hypertension Type 2 diabetes, uncontrolled, with neuropathy Surgical History History of tooth extraction Family History Family History Mother Diabetes Father HTN (hypertension) Social History Social History Household Members: None Housing: Apartment Do you presently have visiting nurse or other home services: No Alcohol intake: never Patient Tobacco Use Status: Former Tobacco user Tobacco use type: Cigarette Smoked in Last 30 Days: No e-Cigarette/Vaping Use: Never Used Use of substances other than those prescribed or required for medical reasons: No Substance Use Type: Crack/Cocaine and Heroin Advance Directives: No Advance Directives Information Provided: Yes Do you have a plan to hurt others: No Plan service: No Sexual orientation: Did not discuss. Physical Exam 2 Vital Signs: Vital Signs: Last Vital Signs Temp 98.3 F 06/26/25 19:23 Pulse 93 06/26/25 19:23 Resp 21 H 06/26/25 19:23 BP 119/69 06/26/25 19:23 Pulse Ox 95 06/26/25 19:23 O2 Del Method Nasal Cannula 06/26/25 19:23 O2 Flow Rate 3 06/26/25 19:23 Oxygen Flow Rate 2 06/26/25 14:38 BMI result Body Mass Index 37.1 Const: General: cooperative, healthy appearing and no acute distress O rientation/consciousness: patient oriented x3 Limitations: no limitations HEENT: Head: Yes normal to inspection and Yes atraumatic Ears: hearing grossly normal bilaterally General nose exam: Normal external nose present Face and sinus: Yes normal facial exam Eyes: General: appearance normal, both eyes and all related structures EOM: EOMs intact bilaterally Neck: Neck: Yes normal visual inspection and Yes no meningeal signs Resp: Effort & Inspection: Actively coughing and no respiratory distress A uscultation: wheezes expiratory wheezes and inspiratory wheezes Cardio: Rate: regular rate Heart sounds: S1 normal heart sound present and S2 normal heart sound present GI: Inspection: Yes normal to inspection Palpation (GI): Soft to palpation, nontender, no guarding and not rigid : General: Yes no CVA tenderness Back/Spine/Pelvis: Back: no CVA tenderness Skin: Rashes: no rashes Wounds: no wounds Neuro: General: patient oriented x3, tone normal and no meningeal signs C ranial nerves: Yes CN's II-XII intact bilaterally Gait exam (Neuro): Normal gait present Extrem: General: Yes normal to inspection and Yes no calf tenderness Course Course Course Narrative: -1723--labs reassuring including negative troponin -COVID and flu negative XR chest 2V IMPRESSION: Unremarkable examination. -D-dimer elevated will obtain CTA to rule out PE CT angio chest PE protocol IMPRESSION: 1. No main or segmental pulmonary emboli identified. 2. Hiatal hernia. 3. Hepatic steatosis. 4. No acute intrathoracic findings. > plan to admit for further management Medications Administered Generic Name Dose Route Start Last Admin Trade Name Freq PRN Reason Stop Dose Admin Azithromycin 500 mg 06/26/25 21:00 06/26/25 21:51 Azithromycin 500 Mg Tablet PO 500 mg Q24H NIRAJ Administration Enoxaparin Sodium 40 mg 06/26/25 21:00 06/26/25 21:51 Enoxaparin Sodium 40 Mg/0.4 Ml Syringe SUBCUT 40 mg Q24H NIRAJ Administration Discontinued Medications Generic Name Dose Route Start Last Admin Trade Name Freq PRN Reason Stop Dose Admin Albuterol Sulfate 2.5 mg/ 5 mg 06/26/25 18:09 06/26/25 18:12 Albuterol Sulfate 2.5 mg INHALE 06/26/25 18:10 5 mg ONCE ONE Administration Albuterol Sulfate 2.5 mg/ 0 mg 06/26/25 16:31 06/26/25 16:35 Albuterol/Ipratropium 3 ml INHALE 06/26/25 16:32 5 dose ONCE ONE Administration Iohexol 100 ml 06/26/25 19:44 06/26/25 19:44 Iohexol 350 Mg/Ml 100 Ml Infus..Btl IV 06/26/25 19:45 65 ml ONCE ONE Administration Methylprednisolone Sodium Succinate 60 mg 06/26/25 16:34 06/26/25 16:40 Methylprednisolone Sod Succ 125 Mg/2 Ml Vial IVPUSH 06/26/25 16:35 60 mg ONCE ONE Administration Medical Decision Making Medical Decision Making [facility] Narrative: 49-year-old male with a past medical history HTN, diabetes, presenting to the ED via EMS from urgent care complaining of productive cough, SOB, and congestion worsening over the past week. On exam patient is satting 88% on RA, diffuse inspiratory/expiratory wheeze appreciated. No pedal edema. Junky cough noted. Concern for viral illness vs bronchitis vs pneumonia. PE on differential however lower at this time. Unlikely DVT. Lower suspicion for acute ACS/dissection Plan: EKG, labs, CXR, viral testing, ED bronch protocol, IV Solu-Medrol. Anticipated admission. Please refer to course for remaining clinical decision making, interpretation of labs/imaging results, and discussions with consultants and/or family members. Differential Diagnosis Differential Diagnoses: The differential diagnosis associated with the presentation includes As above Admission/Observation Consideration of admission/observation: Escalation of care including admission/observation considered Lab Data [facility] Lab Attestation statement: I reviewed the patient's lab results. 06/26/25 14:51 06/26/25 14:51 Labs: Lab Results 06/26/25 06/26/25 06/26/25 Range/Units 14:51 14:57 17:47 WBC 9.8 (4.8-10.8) X10*3/uL RBC 4.23 L (4.60-5.80) X10*6/uL Hgb 12.1 L (14.0-18.0) g/dl Hct 35.7 L (42.0-52.0) % MCV 84.4 (80.0-98.0) fL MCH 28.6 (27.0-33.0) pg MCHC 33.9 (31.0-36.0) g/dl RDW 12.4 (11.0-16.0) % Plt Count 262 (160-400) X10*3/uL MPV 8.9 L (9.4-12.4) fL Immature Gran % (Auto) 0.3 (0.0-0.4) % Neut % (Auto) 71.1 (45-73) % Lymph % (Auto) 18.6 L (20-40) % [place] % (Auto) 7.7 (2-11) % Eos % (Auto) 2.1 (0-4) % Baso % (Auto) 0.2 (0-2) % Lymph # (Auto) 1.8 (1.2-4.9) X10*3/uL [place] # (Auto) 0.8 (0.1-1.2) X10*3/uL Eos # (Auto) 0.2 (0.0-0.4) X10*3/uL Baso # (Auto) 0.0 (0.0-0.2) X10*3/uL Abs Immat Gran (auto) 0.03 (0.00-0.03) X10*3/uL Absolute Neuts (auto) 6.9 (2.0-8.3) x10*3/uL Absolute Nucleated RBC 0.000 (0.0-0.012) X10*3/uL Nucleated RBC % (auto) 0.0 (0.0-0.2) /100WBC D-Dimer High Sensitivty 321 NG/ML Sodium 133 L (135-145) mmol/L Potassium 4.2 (3.3-5.1) mmol/L Chloride 100 (96-108) mmol/L Carbon Dioxide 26 (22-29) mmol/L Anion Gap 11 L (12-20) BUN 11 (9-16) mg/dL Creatinine 0.88 (0.5-1.4) mg/dL Estim Creat Clear Calc 121.1 Estimated GFR > 60 POC Glucose (60-115) mg/dL Random Glucose 280 H (60-115) mg/dL Calcium 9.2 (8.4-10.2) mg/dL Troponin I High Sens < 2.7 (<3.5-35.0) ng/L NT-Pro-B Natriuret Pep 65.4 (<300) pg/mL COVID-19 (SHARIFA) Negative (Negative) COVID-19 Clin Com See Note Influenza Type A (DOMENICO) Negative (Negative) Influenza Type B (DOMENICO) Negative (Negative) Influenza A & B Note See Note 06/26/25 Range/Units 20:47 WBC (4.8-10.8) X10*3/uL RBC (4.60-5.80) X10*6/uL Hgb (14.0-18.0) g/dl Hct (42.0-52.0) % MCV (80.0-98.0) fL MCH (27.0-33.0) pg MCHC (31.0-36.0) g/dl RDW (11.0-16.0) % Plt Count (160-400) X10*3/uL MPV (9.4-12.4) fL Immature Gran % (Auto) (0.0-0.4) % Neut % (Auto) (45-73) % Lymph % (Auto) (20-40) % [place] % (Auto) (2-11) % Eos % (Auto) (0-4) % Baso % (Auto) (0-2) % Lymph # (Auto) (1.2-4.9) X10*3/uL [place] # (Auto) (0.1-1.2) X10*3/uL Eos # (Auto) (0.0-0.4) X10*3/uL Baso # (Auto) (0.0-0.2) X10*3/uL Abs Immat Gran (auto) (0.00-0.03) X10*3/uL Absolute Neuts (auto) (2.0-8.3) x10*3/uL Absolute Nucleated RBC (0.0-0.012) X10*3/uL Nucleated RBC % (auto) (0.0-0.2) /100WBC D-Dimer High Sensitivty NG/ML Sodium (135-145) mmol/L Potassium (3.3-5.1) mmol/L Chloride (96-108) mmol/L Carbon Dioxide (22-29) mmol/L Anion Gap (12-20) BUN (9-16) mg/dL Creatinine (0.5-1.4) mg/dL Estim Creat Clear Calc Estimated GFR POC Glucose 311 H (60-115) mg/dL Random Glucose (60-115) mg/dL Calcium (8.4-10.2) mg/dL Troponin I High Sens (<3.5-35.0) ng/L NT-Pro-B Natriuret Pep (<300) pg/mL COVID-19 (SHARIFA) (Negative) COVID-19 Clin Com Influenza Type A (DOMENICO) (Negative) Influenza Type B (DOMENICO) (Negative) Influenza A & B Note Independent Interpretation I performed an independent interpretation of an: EKG (My interpretation: EKG normal sinus rhythm rate of 86. [place] interval 172. No previous to compare. No STEMI) and Plain X-Ray Radiology Impression Discussion of test interpretation with radiology: I have reviewed the radiologist's reading. Independent Historian Clinical information obtained from an independent historian. History obtained from or confirmed by: EMS External Record Review External record reviewed: Inpatient record, Office record, Outpatient record, Prior outpatient labs, Prior outpatient radiology, Primary care record and Outside ED record Tests considered The following testing was considered but not selected: As above Prescription Management I considered prescription management with: Pain Medication and Antibiotic Chronic Conditions Patient?s care impacted by: Diabetes and Hypertension Social Determinants Patient?s care significantly limited by Social Determinants of Health including: Other Social Determinant of Health Critical Care Time Critical Care Time Critical Care Time: Yes Total Critical Care Time: 40 Attestation: I have personally provided critical care time exclusive of time spent on separately billable procedures. Time includes review of lab data, radiology results, discussion with consultants, and monitoring for potential decompensation. Intervention performed as documented. Discharge Plan Discharge Clinical Impression: Acute viral syndrome, Hypoxia Patient Disposition: Admitted As Inpatient
[2025-06-26 17:52] LABS: NT Pro B Type Natriuretic Pept 65.4 pg/mL (<300)
[2025-06-26] MEDS: Albuterol Sulfate 2.5 MG, Albuterol Sulfate (0.083%) 2.5 MG 5 MG INHALE (18:12)
[2025-06-26 18:50] LABS: D Dimer High Sensitivity 321 NG/ML
[2025-06-26] MEDS: iohexoL 350 MG/ML 100 ML INFUS..BTL IV (19:44)
[2025-06-26 20:52] LABS: Glucose, Whole Blood 311 mg/dL (60-115)
--- NOTE | 2025-06-26 21:05 | PM.IMHP ---
History of Present Illness Date of Service: 06/26/25 Chief Complaint: Cough 49-year-old male with a past medical history of HTN, HLD, dm presented to the hospital today with a chief complaint of cough. Patient mentioned that for past few days he has been having cough and shortness of breath. Has had sick contacts with the family members. Denies any chest pain or palpitations. Reports having congestion in the chest. Denies any nausea vomiting or diarrhea. Denies any prior history of asthma/COPD. Does have a smoking history. Review of all other systems is negative except mentioned above ER course: Per ER team, patient on presentation noted to be short of breath and wheezing; chest x-ray showed no acute cardiopulmonary process; given nebulizations and steroids. Viral panel negative. Concern for possible reactive airway disease versus undiagnosed COPD. CT chest showed no evidence of PE. [facility] Medical History Essential hypertension Type 2 diabetes, uncontrolled, with neuropathy Family History Mother Diabetes Father HTN (hypertension) Surgical History History of tooth extraction Social History Household Members: None Housing: Apartment Do you presently have visiting nurse or other home services: No Alcohol intake: never Patient Tobacco Use Status: Former Tobacco user Tobacco use type: Cigarette Smoked in Last 30 Days: No e-Cigarette/Vaping Use: Never Used Use of substances other than those prescribed or required for medical reasons: No Substance Use Type: Crack/Cocaine and Heroin Advance Directives: No Advance Directives Information Provided: Yes Do you have a plan to hurt others: No Plan service: No Sexual orientation: Did not discuss. Meds Allergies Allergy/AdvReac Type Severity Reaction Status Date / Time No Known Allergies Allergy Verified 06/26/25 14:41 Active Medications: Current Medications Acetaminophen (Acetaminophen 325 Mg Tablet) 650 mg PO Q6H PRN PRN Reason: Pain, Mild 1-3,fever,headache Albuterol/Ipratropium (Albuterol/Iprat 2.5/0.5mg 3 Ml Ampul.Neb) 3 ml INHALE Q4H PRN PRN Reason: Shortness of Breath/Wheezing Albuterol/Ipratropium (Albuterol/Iprat 2.5/0.5mg 3 Ml Ampul.Neb) 3 ml INHALE RQ6H WHILE AWAKE COUNT INCLUDES THE [facility] Azithromycin (Azithromycin 500 Mg Tablet) 500 mg PO Q24H NIRAJ Calcium Carbonate (Calcium Carbonate 750 Mg Tab.Chew) 750 mg PO Q4H PRN PRN Reason: Heartburn Dextrose (Dextrose 50 % 25 Gm/50 Ml Syringe) 25 gm IVPUSH Q15M PRN; Protocol PRN Reason: per Hypoglycemia Standing Ord. Enoxaparin Sodium (Enoxaparin Sodium 40 Mg/0.4 Ml Syringe) 40 mg SUBCUT Q24H COUNT INCLUDES THE [facility] Glucose (Glucose Gel 15 Gm Gel..Gram.) 15 gm PO Q15M PRN; Protocol PRN Reason: per Hypoglycemia Standing Ord. Insulin Human Lispro (Insulin Lispro 100 Unit/Ml 3 Ml Vial) 0 unit SUBCUT QIDACHS COUNT INCLUDES THE [facility]; Protocol Magnesium Hydroxide (Milk Of Magnesia 30 Ml Oral.Susp) 30 ml PO DAILY PRN PRN Reason: Constipation Melatonin (Melatonin 3 Mg Tablet) 6 mg PO BEDTIME PRN PRN Reason: Insomnia Methylprednisolone Sodium Succinate (Methylprednisolone Sod Succ 40 Mg/Ml Vial) 40 mg IVPUSH Q8H COUNT INCLUDES THE [facility] Sodium Chloride (0.9 % Sodium Chloride Flush 3 Ml Syringe) 3 ml IVFLUSH QSHIFT COUNT INCLUDES THE [facility] Home Medications ?Medication ?Instructions ?Recorded ?Confirmed ?Last Taken ?Type lisinopril 10 mg tablet 1 tab PO DAILY 11/05/21 06/27/25 Unknown History gabapentin 300 mg capsule 300 mg PO BEDTIME 06/27/25 06/27/25 Unknown History melatonin 3 mg tablet 6 mg PO BEDTIME PRN Sleep 06/27/25 06/27/25 Unknown History Physical Exam Vital Signs and Narrative: Vital Signs: Last Vital Signs Temp 98.3 F 06/26/25 19:23 Pulse 93 06/26/25 19:23 Resp 21 H 06/26/25 19:23 BP 119/69 06/26/25 19:23 Pulse Ox 95 06/26/25 19:23 O2 Del Method Nasal Cannula 06/26/25 19:23 O2 Flow Rate 3 06/26/25 19:23 Oxygen Flow Rate 2 06/26/25 14:38 BMI result Body Mass Index 37.1 Gen: Appears be in no acute distress HEENT: NCAT, Moist mucosa. Pulmonary: Coarse breath sounds CVS: Normal S1-S2 Abdomen: BS+, Soft, Nontender Extremities: Warm well perfused Neuro: Alert and awake. Results Labs 06/27/25 04:01 06/27/25 04:01 Labs: Laboratory Results - last 24 hr 06/26/25 06/26/25 06/26/25 14:51 14:57 17:47 MCV 84.4 MCH 28.6 MCHC 33.9 RDW 12.4 Plt Count 262 MPV 8.9 L Immature Gran % (Auto) 0.3 Neut % (Auto) 71.1 Lymph % (Auto) 18.6 L [place] % (Auto) 7.7 Eos % (Auto) 2.1 Baso % (Auto) 0.2 Lymph # (Auto) 1.8 [place] # (Auto) 0.8 Eos # (Auto) 0.2 Baso # (Auto) 0.0 Abs Immat Gran (auto) 0.03 Absolute Neuts (auto) 6.9 Absolute Nucleated RBC 0.000 Nucleated RBC % (auto) 0.0 D-Dimer High Sensitivty 321 Anion Gap 11 L Estim Creat Clear Calc 121.1 Estimated GFR > 60 POC Glucose Random Glucose 280 H Calcium 9.2 Troponin I High Sens < 2.7 NT-Pro-B Natriuret Pep 65.4 COVID-19 (SHARIFA) Negative COVID-19 Clin Com See Note Influenza Type A (DOMENICO) Negative Influenza Type B (DOMENICO) Negative Influenza A & B Note See Note 06/26/25 20:47 MCV MCH MCHC RDW Plt Count MPV Immature Gran % (Auto) Neut % (Auto) Lymph % (Auto) [place] % (Auto) Eos % (Auto) Baso % (Auto) Lymph # (Auto) [place] # (Auto) Eos # (Auto) Baso # (Auto) Abs Immat Gran (auto) Absolute Neuts (auto) Absolute Nucleated RBC Nucleated RBC % (auto) D-Dimer High Sensitivty Anion Gap Estim Creat Clear Calc Estimated GFR POC Glucose 311 H Random Glucose Calcium Troponin I High Sens NT-Pro-B Natriuret Pep COVID-19 (SHARIFA) COVID-19 Clin Com Influenza Type A (DOMENICO) Influenza Type B (DOMENICO) Influenza A & B Note Imaging Radiologist's Impressions: Impressions Chest X-Ray 06/26/25 15:00 IMPRESSION: Unremarkable examination. Electronically signed by: Cande Taylor MD 06/26/2025 03:07 PM [facility] Assessment and Plan (1) Acute viral syndrome: Status: Acute Plan 49-year-old male with a past medical history of HTN, HLD, dm presented to the hospital today with a chief complaint of cough. Admitted for following Acute viral syndrome: Reactive airway disease: ? undiagnosed COPD: Acute hypoxic respiratory failure: Patient does have smoking history. Patient was hypoxic to mid 80s in the ER. Placed on supplemental oxygen. Not in respiratory distress currently. Continue nebulizations standing and p.r.n. Solu-Medrol Azithromycin Trending pulse oximetry when ready for discharge Recommended pulmonary function test as outpatient. Diabetes: Insulin sliding scale. Continue home Lantus 30u. Monitor POC glucose and adjust accordingly. Hypertension: Blood pressure normal side. Hold home lisinopril for now. Opiate dependence: Patient on methadone. To be resumed in a.m. once dose is confirmed. DVT prophylaxis: Lovenox Code status: Full code Quality Stroke Does the patient have a stroke diagnosis?: No VTE Prior VTE?: No VTE Risk Level:: Medical - moderate - high VTE Device Contraindication: Treatment Not Indicated VTE Drug Contraindication: N/A - Med Ordered
[2025-06-27] VITALS (9 sets, daily range): BP systolic 116–143; BP diastolic 71–90; PULSE 67–100; RESP 14–20; TEMP 36.2–36.7; O2SAT 90–96; BMI 35.1
--- NOTE | 2025-06-27 | PC.NURSE ---
Report received and care assumed. Pt found to be resting comfortably in stretcher with eyes closed, respirations even and unlabored without known distress noted. He was easily arousable to verbal stimuli, VSS, O2 remains present via NC and he is maintaining well. The pt offers no complaints at this time. He expressed his concerns surrounding his routine medications, notification to the place where he routinely resides and verification of his methadone will be completed when they open at 0600. He reports being dosed at [facility] in [facility] ([phone])
--- NOTE | 2025-06-27 03:05 | PC.NURSE ---
Med rec updated based on list provided from patient's facility, hospitalist made aware. Methadone is only known outstanding medication as RN is unable to verify the medication dose until the morning. pt was previously given food and beverage per his request. he is currently resting comfortably in stretcher without distress noted; respirations even and unlabored and O2 in placed at 2LPM via NC
[2025-06-27 04:18] LABS: MANUAL DIFF FLAG NO
[2025-06-27 04:22] LABS: Hematocrit 38.2 % (42.0-52.0); Hemoglobin 12.9 g/dl (14.0-18.0); Imm Gran Abs Auto 0.05 X10*3/uL (0.00-0.03); Imm Gran Pct Auto 0.6 % (0.0-0.4); Lymphocytes Absolute Auto 1.0 X10*3/uL (1.2-4.9); Mean Corpuscular HGB Conc 33.8 g/dl (31.0-36.0); Mean Corpuscular Hemoglobin 28.2 pg (27.0-33.0); Mean Corpuscular Volume 83.6 fL (80.0-98.0); NRBC Abs Auto 0.000 X10*3/uL (0.0-0.012); NRBC Pct Auto 0.0 /100WBC (0.0-0.2); Platelet Count 263 X10*3/uL (160-400); Red Blood Count 4.57 X10*6/uL (4.60-5.80); White Blood Count 7.7 X10*3/uL (4.8-10.8)
[2025-06-27 04:38] LABS: Alanine Aminotransferase 20 U/L (0-40); Albumin Level 4.2 g/dL (3.5-5.0); Alkaline Phosphatase 108 U/L (39-117); Anion Gap 15 (12-20); Aspartate Amino Transferase 18 U/L (5-37); Blood Urea Nitrogen 15 mg/dL (9-16); Calcium 9.7 mg/dL (8.4-10.2); Carbon Dioxide 23 mmol/L (22-29); Chloride 101 mmol/L (96-108); Creatinine Clr Calc Pharmacy 126.9; Estimated Glomerular Filt Rate > 60; Potassium 4.8 mmol/L (3.3-5.1); Sodium 134 mmol/L (135-145); Total Protein 8.4 g/dL (6.5-8.0)
--- NOTE | 2025-06-27 06:50 | PC.NURSE ---
RN made a second attempt to outreach the pt's in home program with no luck, 2nd voicemail left requesting a call back. This RN was able to get in contact with [facility] to verify his methadone dose; they confirm that although he is not dosed at the recovery center he does present for take home bottles with the last take home supply provided on 06/19. Pt is not dosed at recovery center because he is currently being dosed at his in home program . Methadone verification form complete and to be faxed to pharmacy
--- NOTE | 2025-06-27 07:21 | HO.NURTONUR ---
49 yo male presenting from for ? of PNA, presenting in the mid 80s on room air and requiring anywhere from 2-4LPM via NC to assist with O2 demands/needs. The pt is A&Ox4, able to make his needs known and without distress noted. He has a #20G to the left wrist. He reports 10/10 back pain adding that he typically takes PRN medication such as cyclobenzaprine for this however this medication was not listed on his medication list from the in home program where he resides. The pt is able to independently manage his toileting needs ambulating to the restroom with use of portable O2 tank that he only requires assistance with switching wall><tank. Pt was noted to be hyperglycemic this morning in the upper 300s, hospitalist made aware and no new orders obtained/reported. Pt takes methadone daily, he receives take home supplies from [facility] in [place] but is dosed at his in home program. Methadone verification form completed and faxed to pharmacy.
[2025-06-27 07:35] LABS: Glucose, Whole Blood 342 mg/dL (60-115)
[2025-06-27] MEDS: 0.9 % Sodium Chloride Flush 3 ML SYRINGE IVFLUSH ×3 (07:47→21:42)
[2025-06-27] MEDS: Albuterol/Iprat 2.5/0.5MG 3 ML AMPUL.NEB INHALE ×2 (08:13→18:38)
--- NOTE | 2025-06-27 08:26 | PHA.MEDREC ---
Pharmacy Consult ? Medication Reconciliation Pharmacy has completed the medication reconciliation.Med rec complete, spoke to [facility] that provided me a list of what medications patient was taking. Lisinopril was not on their list and I confirmed that patient has not been taking this at the [place] [facility]. Patient gets methadone from a clinic and gets take home bottles. Methadone dose will need to be verified with clinic
--- NOTE | 2025-06-27 09:51 | P.PNIM_ITS ---
Subjective Subjective Date of Service: 06/27/25 Review of Systems Follow up for respiratory failure Still with some SOB and wheezing Physical Exam 2 Exam: Exam: Appearing in no acute distress lung sounds are clear to auscultation heart regular rate rhythm, clear S1, S2 positive bowel sounds, abdomen is soft, nontender neuro patient is alert x3, no focal deficits Vital Signs: Vital Signs: Last Vital Signs Temp 97.4 F 06/27/25 05:09 Pulse 75 06/27/25 08:14 Resp 15 06/27/25 08:14 BP 122/74 06/27/25 05:09 Pulse Ox 94 06/27/25 05:09 O2 Del Method Nasal Cannula 06/27/25 05:09 O2 Flow Rate 2 06/27/25 05:09 Oxygen Flow Rate 2 06/26/25 14:38 BMI result Body Mass Index 37.1 Objective Data Active Medications Acetaminophen (Acetaminophen 325 Mg Tablet) 650 mg PO Q6H PRN PRN Reason: Pain, Mild 1-3,fever,headache Albuterol/Ipratropium (Albuterol/Iprat 2.5/0.5mg 3 Ml Ampul.Neb) 3 ml INHALE Q4H PRN PRN Reason: Shortness of Breath/Wheezing Albuterol/Ipratropium (Albuterol/Iprat 2.5/0.5mg 3 Ml Ampul.Neb) 3 ml INHALE RQ6H WHILE AWAKE [facility] Last Admin: 06/27/25 08:13 Dose: 3 ml Documented By: JANIE Aripiprazole (Aripiprazole 10 Mg Tablet) 10 mg PO DAILY [facility] Azithromycin (Azithromycin 500 Mg Tablet) 500 mg PO Q24H [facility] Last Admin: 06/26/25 21:51 Dose: 500 mg Documented By: VITALIY-JODY Calcium Carbonate (Calcium Carbonate 750 Mg Tab.Chew) 750 mg PO Q4H PRN PRN Reason: Heartburn Clonidine HCl (Clonidine Hcl 0.1 Mg Tablet) 0.1 mg PO BID PRN; Protocol PRN Reason: Anxiety Cyclobenzaprine HCl (Cyclobenzaprine Hcl 10 Mg Tablet) 10 mg PO BID PRN PRN Reason: Muscle Pain Dextrose (Dextrose 50 % 25 Gm/50 Ml Syringe) 25 gm IVPUSH Q15M PRN; Protocol PRN Reason: per Hypoglycemia Standing Ord. Enoxaparin Sodium (Enoxaparin Sodium 40 Mg/0.4 Ml Syringe) 40 mg SUBCUT Q24H [facility] Last Admin: 06/26/25 21:51 Dose: 40 mg Documented By: VITALIY-JODY Fluoxetine HCl (Fluoxetine Hcl 20 Mg Capsule) 20 mg PO DAILY [facility] Gabapentin (Gabapentin 300 Mg Capsule) 300 mg PO BEDTIME [facility] Glucose (Glucose Gel 15 Gm Gel..Gram.) 15 gm PO Q15M PRN; Protocol PRN Reason: per Hypoglycemia Standing Ord. Hydroxyzine HCl (Hydroxyzine Hcl 50 Mg Tablet) 50 mg PO BID PRN PRN Reason: Anxiety Insulin Glargine (Insulin Glargine,Hum.Rec.Anlog 100 Unit/Ml 10 Ml Vial) 25 unit SUBCUT BEDTIME [facility] Insulin Human Lispro (Insulin Lispro 100 Unit/Ml 3 Ml Vial) 0 unit SUBCUT QIDACHS [facility]; Protocol Last Admin: 06/27/25 07:47 Dose: 8 unit Documented By: RADHA Lisinopril (Lisinopril 10 Mg Tablet) 10 mg PO DAILY [facility]; Protocol Magnesium Hydroxide (Milk Of Magnesia 30 Ml Oral.Susp) 30 ml PO DAILY PRN PRN Reason: Constipation Melatonin (Melatonin 3 Mg Tablet) 6 mg PO BEDTIME PRN PRN Reason: Insomnia Melatonin (Melatonin 3 Mg Tablet) 6 mg PO BEDTIME PRN PRN Reason: Sleep Methylprednisolone Sodium Succinate (Methylprednisolone Sod Succ 40 Mg/Ml Vial) 40 mg IVPUSH Q8H [facility] Last Admin: 06/27/25 05:03 Dose: 40 mg Documented By: WILLOW Nicotine (Nicotine 21 Mg Patch.Td24) 21 mg TRANSDERMA DAILY PRN PRN Reason: Nicotine Cravings Sodium Chloride (0.9 % Sodium Chloride Flush 3 Ml Syringe) 3 ml IVFLUSH QSHIFT [facility] Last Admin: 06/27/25 07:47 Dose: 3 ml Documented By: RADHA Trazodone HCl (Trazodone Hcl 50 Mg Tablet) 50 mg PO BEDTIME PRN PRN Reason: Insomnia Labs 06/27/25 04:01 06/27/25 04:01 Labs: Laboratory Results - last 24 hr 06/26/25 06/26/25 06/26/25 14:51 14:57 17:47 MCV 84.4 MCH 28.6 MCHC 33.9 RDW 12.4 Plt Count 262 MPV 8.9 L Immature Gran % (Auto) 0.3 Neut % (Auto) 71.1 Lymph % (Auto) 18.6 L [place] % (Auto) 7.7 Eos % (Auto) 2.1 Baso % (Auto) 0.2 Lymph # (Auto) 1.8 [place] # (Auto) 0.8 Eos # (Auto) 0.2 Baso # (Auto) 0.0 Abs Immat Gran (auto) 0.03 Absolute Neuts (auto) 6.9 Absolute Nucleated RBC 0.000 Nucleated RBC % (auto) 0.0 D-Dimer High Sensitivty 321 Anion Gap 11 L Estim Creat Clear Calc 121.1 Estimated GFR > 60 POC Glucose Random Glucose 280 H Calcium 9.2 Total Bilirubin AST ALT Alkaline Phosphatase Troponin I High Sens < 2.7 NT-Pro-B Natriuret Pep 65.4 Total Protein Albumin COVID-19 (SHARIFA) Negative COVID-19 Clin Com See Note Influenza Type A (DOMENICO) Negative Influenza Type B (DOMENICO) Negative Influenza A & B Note See Note 06/26/25 06/27/25 06/27/25 20:47 04:01 07:29 MCV 83.6 MCH 28.2 MCHC 33.8 RDW 12.2 Plt Count 263 MPV 8.7 L Immature Gran % (Auto) 0.6 H Neut % (Auto) 85.0 H Lymph % (Auto) 12.6 L [place] % (Auto) 1.7 L Eos % (Auto) 0.0 Baso % (Auto) 0.1 Lymph # (Auto) 1.0 L [place] # (Auto) 0.1 Eos # (Auto) 0.0 Baso # (Auto) 0.0 Abs Immat Gran (auto) 0.05 H Absolute Neuts (auto) 6.6 Absolute Nucleated RBC 0.000 Nucleated RBC % (auto) 0.0 D-Dimer High Sensitivty Anion Gap 15 Estim Creat Clear Calc 126.9 Estimated GFR > 60 POC Glucose 311 H 342 H Random Glucose 398 H* Calcium 9.7 Total Bilirubin 0.4 AST 18 ALT 20 Alkaline Phosphatase 108 Troponin I High Sens NT-Pro-B Natriuret Pep Total Protein 8.4 H Albumin 4.2 COVID-19 (SHARIFA) COVID-19 Clin Com Influenza Type A (DOMENICO) Influenza Type B (DOMENICO) Influenza A & B Note Assessment and Plan (1) Essential hypertension: Status: Acute Plan 49-year-old male with a past medical history of HTN, HLD, dm presented to the hospital today with a chief complaint of cough. Acute respiratory failure secondary to viral illness versus COPD exacerbation Patient denied any history of COPD but has a history of smoking Patient was hypoxic to mid 80s in the ER. Placed on supplemental oxygen. Not in respiratory distress currently. Continue nebulizations standing and p.r.n. Solu-Medrol Azithromycin Recommended pulmonary function test as outpatient. Diabetes mellitus 2 Insulin sliding scale. Continue home Lantus Hypertension Blood pressure normal side. Normocytic anemia Stable H&H Follow up CBC. Opiate dependence Patient on methadone. Obesity class 2. BMI 37.1 Discussed importance of weight management as this may be contributing to worsening of other comorbidities DVT prophylaxis: Lovenox Code status: Full code Quality Stroke Does the patient have a stroke diagnosis?: No VTE Prior VTE?: No VTE Risk Level:: Medical - moderate - high VTE Device Contraindication: Treatment Not Indicated VTE Drug Contraindication: N/A - Med Ordered
--- NOTE | 2025-06-27 11:26 | HE.PHANOTE ---
METHADONE VERIFICATION FORM RECEIVED. DOSE IS 80 MG CLINIC IS [facility], GIVEN 13 TAKE HOME BOTTLES ON 06/19/25
[2025-06-27] MEDS: methADONE HCl 20 MG/2 ML ORAL.CONC 80 MG PO (12:06)
--- NOTE | 2025-06-27 13:36 | PC.NURSE ---
Backbreaker from [facility] called for an update. Backbreaker gave number for Mattie - , who is front end driver if we need to ask any questions or give information.
[2025-06-27 13:37] LABS: Glucose, Whole Blood 309 mg/dL (60-115)
--- NOTE | 2025-06-27 15:25 | MHC.CM.PN ---
Pt. is homeless, he is in a program (for one week) where he can stay: [facility], at [address] [place] [address], he can call them at [place] and they will pick him up. He goes to [facility], does not know which MD. He does not use DME or home health services. DCP: return to [facility]. CM to follow for DC needs.
[2025-06-27 16:43] LABS: Glucose, Whole Blood 470 mg/dL (60-115)
[2025-06-27 18:51] LABS: Glucose, Whole Blood 443 mg/dL (60-115)
[2025-06-27 20:27] LABS: Glucose, Whole Blood 400 mg/dL (60-115)
[2025-06-27] MEDS: Insulin Glargine,Hum.rec.anlog 100 UNIT/ML 10 ML VIAL 25 UNIT SUBCUT (21:43)
[2025-06-28 00:09] LABS: Glucose, Whole Blood 364 mg/dL (60-115)
[2025-06-28 03:14] VITALS: BP 113/67; PULSE 71; RESP 16; TEMP 36.7; O2SAT 94
[2025-06-28 03:58] LABS: Glucose, Whole Blood 317 mg/dL (60-115)
[2025-06-28 07:33] VITALS: O2SAT 92
[2025-06-28] MEDS: Albuterol/Iprat 2.5/0.5MG 3 ML AMPUL.NEB INHALE (07:35)
[2025-06-28 07:36] VITALS: PULSE 71; RESP 16; O2SAT 95
[2025-06-28 08:00] VITALS: BP 125/69; PULSE 89; RESP 18; TEMP 36.3; O2SAT 93
[2025-06-28] MEDS: methADONE HCl 20 MG/2 ML ORAL.CONC 80 MG PO (08:05)
[2025-06-28] MEDS: 0.9 % Sodium Chloride Flush 3 ML SYRINGE IVFLUSH (08:06)
[2025-06-28 08:48] LABS: Glucose, Whole Blood 430 mg/dL (60-115)
--- NOTE | 2025-06-28 08:59 | PM.DS ---
DS: Providers Provider Date of Service: 06/28/25 Date of admission: 06/26/25 20:59 Date of discharge: 06/28/25 Primary care physician: [facility] DS: Diagnosis Discharge Diagnosis (1) Essential hypertension: Status: Acute DS: Summary Hospital Course Hospital Course: History and physical as per admitting provider. 49-year-old male with a past medical history of HTN, HLD, dm presented to the hospital today with a chief complaint of cough. Patient mentioned that for past few days he has been having cough and shortness of breath. Has had sick contacts with the family members. Denies any chest pain or palpitations. Reports having congestion in the chest. Denies any nausea vomiting or diarrhea. Denies any prior history of asthma/COPD. Does have a smoking history. Review of all other systems is negative except mentioned above ER course: Per ER team, patient on presentation noted to be short of breath and wheezing; chest x-ray showed no acute cardiopulmonary process; given nebulizations and steroids. Viral panel negative. Concern for possible reactive airway disease versus undiagnosed COPD. CT chest showed no evidence of PE. Acute respiratory failure secondary to viral illness versus COPD exacerbation Patient denied any history of COPD but has a history of smoking Patient was hypoxic to mid 80s in the ER. Placed on supplemental oxygen. treated with nebulizations standing and p.r.n., Solu-Medrol, Azithromycin Recommended pulmonary function test as outpatient. Diabetes mellitus 2 continue home medications Hypertension continue home medications . Normocytic anemia Stable H&H Opiate dependence Patient on methadone. Obesity class 2. BMI 37.1 Discussed importance of weight management as this may be contributing to worsening of other comorbidities Time Attestation Discharge Coordination Time (in mins): 48 Quality: Safe Use of Opioids Does Pt have an Active Cancer Diagnosis on the Problem List?: No Quality: Stroke Does the patient have a stroke diagnosis?: No Physical Exam Exam: Exam: Appearing in no acute distress head is normocephalic atraumatic eyes pupils are PERRLA sclera is anicteric mouth throat mucous membranes are intact and moist neck is supple no lymphadenopathy, no JVD noted lung sounds are clear to auscultation heart regular rate rhythm, clear S1, S2 positive bowel sounds, abdomen is soft, nontender neuro patient is alert x3, no focal deficits Vital Signs: Vital Signs: Last Vital Signs Temp 98.1 F 06/28/25 03:14 Pulse 71 06/28/25 07:36 Resp 16 06/28/25 07:36 BP 113/67 06/28/25 03:14 Pulse Ox 92 06/28/25 07:33 O2 Del Method Nasal Cannula 06/28/25 03:14 O2 Flow Rate 2 06/28/25 03:14 Oxygen Flow Rate 2 06/26/25 14:38 BMI result Body Mass Index 35.1 DS: Data Data Completed and Pending Labs on day of discharge: Laboratory Results - last 24 hr 06/27/25 06/27/25 06/27/25 13:33 16:39 18:48 POC Glucose 309 H 470 H* 443 H* 06/27/25 06/28/25 06/28/25 20:24 00:05 03:19 POC Glucose 400 H* 364 H* 317 H 06/28/25 08:04 POC Glucose 430 H* Discharge Plan Discharge Anticipated Discharge Date/Time: 06/28/25 08:46 Patient Disposition: Home, Self-Care Discharge Diagnosis: Acute respiratory failure COPD exacerbation Referrals: [facility] [Primary Care Provider, Medical] - 1 Week Discharge Medications: New azithromycin 500 mg Tablet 500 mg PO Q24H Qty: 1 0RF prednisone 10 mg tablet 40 mg PO DIRECTED Qty: 16 0RF Rx Instructions: 40 mg daily for 4 days albuterol sulfate [Ventolin HFA] 90 mcg/actuation HFA aerosol inhaler 1 inh inhalation QID PRN (Reason: shortness of breath or wheezing) Qty: 6.7 0RF Continued clonidine HCl 0.1 mg Tablet 0.1 mg PO BID PRN (Reason: anxiety) Qty: 60 0RF Protocol: Hold for SBP< HOLD for SBP < : 90 trazodone 50 mg Tablet 50 mg PO BEDTIME PRN (Reason: Insomnia) Qty: 30 0RF metformin 1,000 mg Tablet 1,000 mg PO BIDWM Qty: 60 0RF gabapentin 300 mg Capsule 300 mg PO TID melatonin 3 mg tablet 6 mg PO BEDTIME PRN (Reason: Sleep) insulin lispro [Humalog U-100 Insulin] 100 unit/mL solution See Protocol subcut QIDACHS Protocol: Insulin Correction Scale Less than or equal to 110 ---- Give (units): 0 111 to 150 Give (units): 0 151 to 200 Give (units): 2 201 to 250 Give (units): 4 251 to 300 Give (units): 6 301 to 350 Give (units): 8 Greater than 350 Give (units): 18 Call MD if Blood Glucose > : 10 Rx Instructions: BS 351- 400 10 UNITS BS 401 -450 12 UNITS insulin glargine [Lantus Solostar U-100 Insulin] 100 unit/mL (3 mL) Insulin Pen 25 unit SUBCUT BEDTIME fluoxetine 20 mg Tablet 20 mg PO DAILY aripiprazole 10 mg Tablet 10 mg PO DAILY methadone [Methadose] 10 mg/mL concentrate 80 mg PO DAILY hydroxyzine HCl 50 mg Tablet 50 mg PO BID PRN (Reason: Anxiety) cyclobenzaprine 10 mg Tablet 10 mg PO BID PRN (Reason: Muscle Pain) nicotine 21 mg/24 hr patch 24 hour 21 mg transdermal DAILY PRN (Reason: Nicotine Cravings) Discharge Orders: Discharge Order (Routine); Ordered 06/28/25 Ordered By: Vianca Crespo Diet: Advance to usual diet Activity on Discharge: As tolerated Stand Alone Forms: Patient Portal Discharge page Print Language: Slovak Care Plan Goals: Take prednisone for the next 4 days, 1 more dose of azithromycin Last methadone dose 06/28/2025 Health Concerns: Acute respiratory failure COPD exacerbation Plan of Treatment: Follow up with primary care provider as needed Take all medications as prescribed Assessment: See discharge summary Discharge Date/Time: 06/28/25 10:24
--- NOTE | 2025-06-28 09:10 | MHC.CM.PN ---
Pt. has been medically cleared, he will return to his half-way ([facility]) via their transport, plan is self care.
== END 2025-06-28 10:24 | disposition home or self-care (01) | DRG 140 ==
LOC: HO.ED 20:54 → HO.EDOVER 21:15 → HO.IMC 06-27 15:18
PROVIDERS: Physician Assistant; Admitting Provider Hospitalist; Emergency Provider Emergency Medicine; Visit Provider Nurse Practitioner Acute Care
DX: J44.1 Chronic obstructive pulmonary disease with (acute) exacerbation (principal); J96.01 Acute respiratory failure with hypoxia; E11.9 Type 2 diabetes mellitus without complications; E78.5 Hyperlipidemia, unspecified; D64.9 Anemia, unspecified; E66.812 Obesity, class 2; Z68.35 Body mass index [BMI] 35.0-35.9, adult; Z71.3 Dietary counseling and surveillance; F11.20 Opioid dependence, uncomplicated; I10 Essential (primary) hypertension; Z20.822 Contact with and (suspected) exposure to COVID-19; Z79.4 Long term (current) use of insulin; Z87.891 Personal history of nicotine dependence; Z79.84 Long term (current) use of oral hypoglycemic drugs; Z79.899 Other long term (current) drug therapy
CPT/HCPCS: 36415; 71046; 71275; 80048; 80053; 82947; 83880; 84484; 85025; 85379; 87502; 87635; 93005; 94640; 99285; J1650; J2919; Q9967

== ENCOUNTER → 2025-06-26 15:00 | Outpatient (BNV) | payer MEDICAID, SELFPAY | PROVIDERS: Visit Provider Radiology Diagnostic Radiology | DX: R09.02 Hypoxemia (principal); R79.1 Abnormal coagulation profile; K44.9 Diaphragmatic hernia without obstruction or gangrene; K76.0 Fatty (change of) liver, not elsewhere classified; R07.9 Chest pain, unspecified; R06.02 Shortness of breath | CPT/HCPCS: 71046; 71275 ==

== ENCOUNTER → 2025-06-26 15:24 | Outpatient (BNV) | payer MEDICAID, SELFPAY | PROVIDERS: Admitting Provider Hospitalist; Emergency Provider Emergency Medicine; Visit Provider Internal Medicine Cardiovascular Disease | DX: R06.02 Shortness of breath (principal) | CPT/HCPCS: 93010 ==

== ENCOUNTER → 2025-06-26 20:59 | Outpatient (BNV) | payer MEDICAID, SELFPAY | PROVIDERS: Admitting Provider Hospitalist; Emergency Provider Emergency Medicine; Visit Provider Nurse Practitioner Acute Care | DX: B34.9 Viral infection, unspecified (principal); I10 Essential (primary) hypertension | CPT/HCPCS: 99223; 99232 ==